=== PATIENT | female | born 1950 | race Caucasian/White ===

== ENCOUNTER → 2017-06-17 | Outpatient (CLI) | payer MEDICARE ==
[~2017-06-17] MED LIST: CYMBALTA30 MG PO; GABAPENTIN PO; KEFLEX500 MG PO; NEXIUM40 MG PO; NORCO 5-325 TA1 EACH PO; SIMVASTATIN PO; SIMVASTATIN80 MG PO; TRAZODONE HCL50 MG PO; URELLE TABLET1 EACH PO
--- NOTE | 2017-06-17 15:51 | Diagnostic Imaging Report ---
Exam: Right footCT without contrast. History: Foot pain. Mid tarsal fracture. Pain in the foot. Pain not responding to conservative management. Pain worse with walking. Comparison:None Technique: Utilizing a 64-slice multidetector CT, axial imaging was performed through the right foot without IV contrast. Multiplanar reformation was performed. Findings: There is no acute fracture or dislocation. Moderately advanced degenerative changes are seen predominantly in the mid foot involving the cuboid articulation with the adjacent metatarsals and the cuneiform/first through third proximal metatarsal articulations. There is associated joint space loss, subchondral sclerosis, subchondral cystic change and peripheral osteophytosis. Mild vacuum phenomenon is seen at the proximal first metatarsal/cuneiform articulation. No abnormal fluid collections are seen. No radiopaque foreign body is seen. The visualized muscles are normal in size and morphology. No talar dome osteochondral lesion is seen. The subtalar joints are intact. 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 No acute fracture or dislocation. Signed by: Dr. Thomas Christiansen M.D. on 06/17/2017 3:48 PM
== END ==
LOC: CT 14:07
PROVIDERS: ATTEND Podiatrist Foot & Ankle Surgery
DX: S92.241A Displaced fracture of medial cuneiform of right foot, initial encounter for closed fracture (principal)

== ENCOUNTER → 2017-08-11 | Day surgery (SDC) | payer MEDICARE ==
[2017-08-10 10:21] LABS: BASOPHILS # (AUTO) 0.1 (0.0-0.1); BASOPHILS % 0.6 % (0.0-1.0); EOSINOPHILS # (AUTO) 0.1 (0.0-0.4); EOSINOPHILS % 1.1 % (0.0-6.0); HEMATOCRIT 36.3 % (34.2-44.1); HEMOGLOBIN 11.9 g/dL (12.0-16.0); LYMPHOCYTES # (AUTO) 2.2 (1.0-3.2); LYMPHOCYTES % 19.8 % (18.0-39.1); MEAN CORPUSCULAR HEMOGLOBIN 28.3 pg (28-32); MEAN CORPUSCULAR HGB CONC 32.8 g/dL (31-35); MEAN CORPUSCULAR VOLUME 86.2 fL (81-99); MONOCYTES # (AUTO) 0.9 (0.2-0.8); MONOCYTES % 7.9 % (4.4-11.3); NEUTROPHILS # (AUTO) 7.6 (2.1-6.9); NEUTROPHILS % 69.9 % (38.7-80.0); PLATELET COUNT 132 x10e3/uL (140-360); RED BLOOD COUNT 4.21 x10e6/uL (3.6-5.1)
--- NOTE | 2017-08-10 12:39 | Diagnostic Imaging Report ---
PROCEDURE: X-RAY CHEST, TWO VIEWS COMPARISON: None. INDICATIONS: FOOT SURGERY FINDINGS: LUNGS: No consolidations or edema. Biapical pleural thickening. PLEURA: No effusions or pneumothorax. HEART \T\ MEDIASTINUM: The heart is within normal size-limits. BONES \T\ SOFT TISSUES: No acute findings. CONCLUSION: No acute thoracic abnormality. Donta Najera D.O. Dictated by: Donta Najera D.O. on 08/10/2017 at 12:40 Electronically approved by: Donta Najera D.O. on 08/10/2017 at 12:40
[~2017-08-11] MED LIST changes: +BUPIVACAINE HCL 0.5% INJ 30 ML VIAL INJ ONE; +CEFAZOLIN SOD 1 GM VIAL ONE; +DEXAMETHASONE SOD PHOS INJ 4 MG/ML VIAL ONE; +FENTANYL CITRATE/PF 100MCG/2 ML INJ ONE; +LIDOCAINE HCL 2% LOCAL INJ 5 ML SDV VIAL INJ ONE; +MIDAZOLAM HCL 2 MG/2 ML VIAL ONE; +ONDANSETRON HCL INJ 2 MG/ML VIAL ONE; +PROPOFOL IV EMULSION 10 MG/ML 20 ML VIAL ONE; +SEVOFLURANE INHAL SOLN 250 ML PEN BTL ONE; +THROMBIN FOR SOLN 5,000 UNIT VIAL ONE; +[UNRECOGNIZED DRUG - CODE] PO
--- OUTSIDE RECORDS SUMMARY | 2017-08-11 05:47 | XMS REPORT ---
Author Author [facility] Address Unknown Phone Unavailable Care Team Providers Care Counselor/Art Therapist Name Role Phone Janice SAMUELS Unavailable Unavailable Problems This patient has no known problems. Allergies, Adverse Reactions, Alerts This patient has no known allergies or adverse reactions. Medications This patient has no known medications. Results Test Description Test Time Test Comments Text Results Atomic Results Result Comments CHEST 2 VIEWS [place] [address] Patient Name: LIZETTE CHARLES MR #: [id number] : 1950 Age/Sex: 67/F Req # : [id number] Adm Physician: Ordered by: HOLLY BERGMAN MD Report #: [id number] Location: OR Room/Bed: Procedure: [id number] DX/CHEST 2 VIEWS Exam Date: 08/10/17 Exam Time: 1015 REPORT STATUS: Signed PROCEDURE: X-RAY CHEST, TWO VIEWS COMPARISON: None. INDICATIONS: FOOT SURGERY FINDINGS: LUNGS: No consolidations or edema. Biapical pleural thickening. PLEURA: No effusions or pneumothorax. HEART T MEDIASTINUM: The heart is within normal size-limits. BONES T SOFT TISSUES: No acute findings. CONCLUSION: No acute thoracic abnormality. Marce Najera D.O. Dictated by: Marce Najera D.O. on 08/10/2017 at 12:40 Electronically approved by: Marce Najera D.O. on 08/10/2017 at 12:40 Dictated By: MARCE NAJERA DO 1241 Transcribed By: JOHN on 08/10/17 1241 COPY TO: HOLLY BERGMAN MD CT FOOT RIGHT WO [place] [address] Patient Name: LIZETTE CHARLES MR #: [id number] : 1950 Age/Sex: 67/F Req # : [id number] Adm Physician: Ordered by: Janice SAMUELS DPM Report #: [id number] Location: CT Room/Bed: Procedure: [id number] CT/CT FOOT RIGHT WO Exam Date: 06/17/17 Exam Time: 1429 REPORT STATUS: Signed Exam: Right footCT without contrast. History: Foot pain. Mid tarsal fracture. Pain in the foot. Pain not responding to conservative management. Pain worse with walking. Comparison:None Technique: Utilizing a 64-slice multidetector CT, axial imaging was performed through the right foot without IV contrast. Multiplanar reformation was performed. Findings: There is no acute fracture or dislocation. Moderately advanced degenerative changes are seen predominantly in the mid foot involving the cuboid articulation with the adjacent metatarsals and the cuneiform/first through third proximal metatarsal articulations. There is associated joint space loss, subchondral sclerosis, subchondral cystic change and peripheral osteophytosis. Mild vacuum phenomenon is seen at the proximal first metatarsal/cuneiform articulation. No abnormal fluid collections are seen. No radiopaque foreign body is seen. The visualized muscles are normal in size and morphology. No talar dome osteochondral lesion is seen. The subtalar joints are intact. 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 No acute fracture or dislocation. Signed by: Dr. Thomas Christiansen M.D. on 06/17/2017 3:48 PM Dictated By: THOMAS CHRISTIANSEN MD, MD 1548 Transcribed By: ARNOLD on 06/17/17 1548 COPY TO: Janice SAMUELS DPM
--- NOTE | 2017-08-11 09:11 | Operative Report ---
DATE OF PROCEDURE: August 11, 2017 PREOPERATIVE DIAGNOSES 1. 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 2. Right medial dorsal cutaneous nerve impingement. POSTOPERATIVE DIAGNOSES 1. 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 2. Right medial dorsal cutaneous nerve impingement. PLANNED PROCEDURES 1. Right metatarsal cuneiform exostectomy. 2. Right medial dorsal cutaneous nerve neurolysis. SURGEON: See SAMUELS DPM SERVICE ATTENDANT: Johny Laura DPM. ANESTHESIA: General with a postoperative block consisting of 10 mL of 0.5% Marcaine plain mixed with 1 mL of dexamethasone phosphate. HEMOSTASIS: Pneumatic thigh tourniquet set at 350 mmHg for a total time of approximately 25 minutes. MATERIALS: 3-0 Vicryl, 4-0 Prolene. PATHOLOGY: None. ESTIMATED BLOOD LOSS: Less than 10 mL. DETAILS OF PROCEDURE: Patient was seen in the preoperative waiting room where the correct procedure and site were identified. The patient was brought to the operating room and placed on the operating table in the supine position. General anesthesia was initiated at this time. A well-padded pneumatic tourniquet was placed about the patient's right thigh. The right foot, ankle and leg were then scrubbed, prepped and draped in the usual aseptic manner. The right foot, ankle and leg were then exsanguinated with an Esmarch bandage, and the pneumatic thigh tourniquet was inflated to 350 mmHg for a total time of approximately 20 to 25 minutes. Attention was directed the dorsomedial aspect of the patient's right foot where a large bony exostosis was noted along the 1st metatarsal cuneiform joint. Utilizing a #15 blade, a 5-cm curvilinear incision was made. Incision was carried through subcutaneous tissues, them from deeper underlying structures. All vital neurovascular structures were identified and retracted medially and laterally, and all bleeders were cauterized or ligated as deemed necessary. It should be noted that upon incision the proper digital branch of the medial dorsal cutaneous nerve was noted within the incision site. It was noted to be inflamed and entrapped within the fascia. This was freed utilizing a mosquito hemostat. Next, this was retracted laterally. Incision was made through the metatarsal cuneiform joint capsule to spare the extensor hallucis longus tendon. The tissues were reflected medially and laterally to allow for good visualization of the exostosis. Utilizing an osteotome and mallet, the exostectomy was performed, and all bone edges were smoothed utilizing an egg bur and a bone rasp. The wound was then flushed with copious amounts of sterile saline. Utilizing 1 mL of dexamethasone phosphate, the nerve was bathed in it. Next, the deep tissue was reapproximated with 3-0 Vicryl, and the skin was closed using running interlocking sutures of 4-0 Prolene. The incision site was dressed with Adaptic, 4 x 4's, Kerlix, Thomas wrap and a postop shoe. Patient tolerated the procedure and anesthesia well. Patient was transferred to postoperative recovery room with vital signs stable and vascular status intact. The patient was monitored there for a short period of time before being sent home with the following written and oral instructions: 1. Keep the dressing clean, dry and intact. 2. The patient is to remain partial weightbearing in a postop shoe and to avoid excessive ambulation until being seen in the office. 3. The patient was given the office number and instructed to contact us if any problems should arise. Dictated by Johny Laura DPM. Job#: [id number] WALTER JAMESON
== END | disposition home or self-care (01) ==
LOC: OR 05:45
PROVIDERS: ATTEND Podiatrist Foot & Ankle Surgery
PROC: 0QBN0ZZ Excision of Right Metatarsal, Open Approach (ICD-10-PCS; 2017-08-11)
PROC: 01NH0ZZ Release Peroneal Nerve, Open Approach (ICD-10-PCS; principal; 2017-08-11 06:30)
DX: M77.51 Other enthesopathy of right foot and ankle (principal); G57.81 Other specified mononeuropathies of right lower limb; F17.210 Nicotine dependence, cigarettes, uncomplicated; E78.5 Hyperlipidemia, unspecified; Z01.810 Encounter for preprocedural cardiovascular examination; Z01.812 Encounter for preprocedural laboratory examination; Z01.818 Encounter for other preprocedural examination
CPT/HCPCS: 28104; 36415; 64704; 71046; 85025; 93005; J0690; J1100; J2001; J2250; J2405

== ENCOUNTER → 2018-09-22 | Day surgery (SDC) | payer MEDICARE ==
[2018-09-15 10:51] LABS: BASOPHILS # (AUTO) 0.1 (0.0-0.1); BASOPHILS % 0.9 % (0.0-1.0); EOSINOPHILS # (AUTO) 0.1 (0.0-0.4); EOSINOPHILS % 0.8 % (0.0-6.0); HEMATOCRIT 39.3 % (34.2-44.1); HEMOGLOBIN 13.2 g/dL (12.0-16.0); LYMPHOCYTES # (AUTO) 1.8 (1.0-3.2); LYMPHOCYTES % 23.9 % (18.0-39.1); MEAN CORPUSCULAR HEMOGLOBIN 28.3 pg (28-32); MEAN CORPUSCULAR HGB CONC 33.6 g/dL (31-35); MEAN CORPUSCULAR VOLUME 84.2 fL (81-99); MONOCYTES # (AUTO) 0.7 (0.2-0.8); MONOCYTES % 9.5 % (4.4-11.3); NEUTROPHILS # (AUTO) 4.9 (2.1-6.9); NEUTROPHILS % 64.4 % (38.7-80.0); PLATELET COUNT 141 x10e3/uL (140-360); RED BLOOD COUNT 4.67 x10e6/uL (3.6-5.1); RED CELL DISTRIBUTION WIDTH 19.6 % (11.7-14.4)
[~2018-09-22] MED LIST changes: -BUPIVACAINE HCL 0.5% INJ 30 ML VIAL INJ ONE; -CEFAZOLIN SOD 1 GM VIAL ONE; +CYMBALTA30 MG; -DEXAMETHASONE SOD PHOS INJ 4 MG/ML VIAL ONE; +GABAPENTIN100 MG; +GLUCAGON FOR INJ 1 MG VIAL ONE; +HYOSCYAMINE SULFATE 0.5 MG/ML INJ ONE; -ONDANSETRON HCL INJ 2 MG/ML VIAL ONE; +OS-CAL 500+D T1 EACH; -PROPOFOL IV EMULSION 10 MG/ML 20 ML VIAL ONE; +PROPOFOL IV EMULSION 10 MG/ML 50 ML VIAL ONE; -SEVOFLURANE INHAL SOLN 250 ML PEN BTL ONE; -THROMBIN FOR SOLN 5,000 UNIT VIAL ONE
[2018-09-22 12:10] VITALS: BP 108/85
[2018-09-22 15:35] LABS: WBC,FECAL (FECAL LACTOFERRIN) POSITIVE (NEGATIVE)
--- NOTE | 2018-09-22 18:23 | Operative Report ---
DATE OF PROCEDURE: 09/22/2018 SURGEON: Kristofer Urena MD PROCEDURES: Esophagogastroduodenoscopy with esophageal dilatation and biopsies and colonoscopy with polypectomy and biopsies. INDICATIONS FOR EGD: Dysphagia, bloating. INDICATIONS FOR COLONOSCOPY: Diarrhea, chronic; fecal incontinence. MEDICATION: The patient was done under MAC, please see anesthesiologist's note. PROCEDURE IN DETAIL: With the patient in left lateral decubitus position, flexible fiberoptic Olympus gastroscope was introduced into the esophagus under direct visualization without any difficulty. There was some patchy erythema noted in distal esophagus. A mild stricture was noted at the GE junction that was dilated to size 52-[place]. The scope was then advanced with ease into the stomach and mucosa overlying the antrum revealed some diffuse erythema and mild to moderate edema and biopsies were obtained and sent to stain for H pylori. Mucosa overlying the body had patchy but prominent nodularity and biopsies were obtained. A minute nodule was noted in the cardia that was biopsied. The pylorus was intubated with ease and the scope was advanced all the way to the second portion of the duodenum. Biopsies were obtained from the proximal second portion and the duodenal bulb to rule out sprue. The scope was then withdrawn back into the stomach and retroflexed and mucosa overlying the fundus and the cardia appeared to be within normal limits. The scope was then straightened out, it was subsequently withdrawn. The patient tolerated procedure well. IMPRESSION: 1. Distal esophagitis, mild. 2. Esophageal stricture at GE junction dilated to size 52-[place] Hackett. 3. Small sliding hiatal hernia. 4. Nodule in cardia, biopsied. 5. Gastritis, biopsied, biopsies sent to stain for H pylori. 6. Rule out sprue. PLAN: Follow up histology. Initiate Protonix 40 mg one p.o. q.a.m. a.c. PROCEDURE IN DETAIL: The patient was then turned around. After adequate lubrication of the anal canal, a flexible fiberoptic Olympus colonoscope was inserted into the rectum with ease and advanced all the way to the cecum. Mucosa overlying the cecum appeared to be within normal limits. The ileocecal valve was intubated and the scope was advanced into the terminal ileum. Biopsies were obtained. The scope was then withdrawn back into the colon. It was then withdrawn slowly and mucosa overlying the ascending appeared to be within normal limits. Two polyps were snared from the distal transverse colon and one polypectomy site was tattooed. One polyp was hot biopsied from the descending colon. The left colon revealed some diffuse erythema, low-grade to moderate edema and biopsies were obtained. Rectal polyps x6, 2 were snared and 4 were hot biopsied from the rectum. The scope was then retroflexed into the distal rectum and the area around the dentate line appeared to be within normal limits. The scope was then straightened out, it was subsequently withdrawn after securing an adequate stool specimen that was sent for the appropriate stool studies. The patient tolerated procedure well. IMPRESSION: 1. Transverse colon polyps x2, snared, 1 polypectomy site tattooed. 2. Descending colon polyp, hot biopsied. 3. Mild patchy left-sided colitis. 4. Rectal polyps x6, 2 snared and 4 hot biopsied. PLAN: Follow up histology. Follow up stool studies. Initiate Bentyl 10 mg one p.o. t.i.d. VSL#3 one p.o. daily. The patient might benefit from a followup colonoscopy in 3 to 5 years. Kristofer Urena MD [facility] [place]/MODL /[id number] cc: Angus Adamson MD
[2018-09-23 12:52] LABS: C DIFFICILE TOXIN A&B AMP PROB NEGATIVE (NEGATIVE)
== END | disposition home or self-care (01) ==
LOC: OR 07:00
PROVIDERS: ATTEND Internal Medicine Gastroenterology
DX: D12.3 Benign neoplasm of transverse colon (principal); D12.4 Benign neoplasm of descending colon; K20.9 Esophagitis, unspecified; K22.2 Esophageal obstruction; K44.9 Diaphragmatic hernia without obstruction or gangrene; K29.70 Gastritis, unspecified, without bleeding; K62.1 Rectal polyp; K51.50 Left sided colitis without complications; K31.7 Polyp of stomach and duodenum; R14.0 Abdominal distension (gaseous); K92.1 Melena; R12 Heartburn; R19.7 Diarrhea, unspecified; K59.00 Constipation, unspecified; R13.10 Dysphagia, unspecified; Z01.810 Encounter for preprocedural cardiovascular examination; Z01.812 Encounter for preprocedural laboratory examination
CPT/HCPCS: 36415; 43239; 43450; 45378; 45380; 45381; 45384; 45385; 83630; 83993; 85025; 87045; 87177; 87328; 87493; 93005; J1610; J1980; J2001; J2250

== ENCOUNTER 2019-08-08 21:21 | Emergency (ER) | payer MEDICARE ==
[~2019-08-08 21:21] MED LIST changes: -FENTANYL CITRATE/PF 100MCG/2 ML INJ ONE; -GLUCAGON FOR INJ 1 MG VIAL ONE; -HYOSCYAMINE SULFATE 0.5 MG/ML INJ ONE; -LIDOCAINE HCL 2% LOCAL INJ 5 ML SDV VIAL INJ ONE; -MIDAZOLAM HCL 2 MG/2 ML VIAL ONE; -PROPOFOL IV EMULSION 10 MG/ML 50 ML VIAL ONE
[2019-08-08] MEDS ORDERED: SODIUM CHLORIDE 0.9% 1000ML 1,000 ML IV STA (21:31)
[2019-08-08] MEDS ORDERED: KETOROLAC TROMETHAMINE 30 MG/ML VIAL IV STA (21:31)
[2019-08-08 21:52] LABS: BASOPHILS # (AUTO) 0.1 (0.0-0.1); BASOPHILS % 0.9 % (0.0-1.0); EOSINOPHILS # (AUTO) 0.1 (0.0-0.4); EOSINOPHILS % 0.7 % (0.0-6.0); HEMATOCRIT 33.9 % (34.2-44.1); HEMOGLOBIN 11.2 g/dL (12.0-16.0); LYMPHOCYTES # (AUTO) 2.6 (1.0-3.2); MEAN CORPUSCULAR HEMOGLOBIN 28.3 pg (28-32); MEAN CORPUSCULAR VOLUME 85.6 fL (81-99); MONOCYTES # (AUTO) 0.9 (0.2-0.8); MONOCYTES % 8.7 % (4.4-11.3); NEUTROPHILS # (AUTO) 6.7 (2.1-6.9); NEUTROPHILS % 63.8 % (38.7-80.0); PLATELET COUNT 130 x10e3/uL (140-360); RED BLOOD COUNT 3.96 x10e6/uL (3.6-5.1); RED CELL DISTRIBUTION WIDTH 18.9 % (11.7-14.4)
[2019-08-08 22:24] LABS: ALANINE AMINOTRANSFERASE 15 IU/L (0-55); ALBUMIN 3.6 g/dL (3.5-5.0); ALBUMIN/GLOBULIN RATIO 1.4 (0.8-2.0); ALKALINE PHOSPHATASE 82 IU/L (40-150); ANION GAP 9.8 mmol/L (8-16); BLOOD UREA NITROGEN 13 mg/dL (7-26); BUN/CREATININE RATIO 15 (6-25); CALCIUM 9.1 mg/dL (8.4-10.2); CARBON DIOXIDE 26 mmol/L (22-29); CHLORIDE 102 mmol/L (98-107); CREATININE, SERUM 0.85 mg/dL (0.57-1.11); EST GLOMERULAR FILTRATION RATE > 60 ML/MIN (60-); GLUCOSE 99 mg/dL (74-118); POTASSIUM 3.8 mmol/L (3.5-5.1); SODIUM 134 mmol/L (136-145)
[2019-08-08] MEDS ORDERED: ONDANSETRON HCL INJ 2MG/ML 2ML 2 MG/ML VIAL IV STA (22:46)
[2019-08-08] MEDS ORDERED: MORPHINE SULFATE INJ 4 MG/ML INJ 1ML IV STA (22:46)
[2019-08-08 23:21] LABS: KETONES,URINE NEGATIVE (NEGATIVE); LEUKOCYTE ESTERASE ,URINE 1+ (NEGATIVE); NITRITE,URINE NEGATIVE (NEGATIVE); PROTEIN,URINE DIPSTICK NEGATIVE (NEGATIVE); URINE UROBILINOGEN 0.2 mg/dL (0.2 - 1)
[2019-08-08 23:22] LABS: BILIRUBIN,URINE NEGATIVE (NEGATIVE)
[2019-08-08 23:34] LABS: WBC,URINE (MAN) >50 /HPF (0-5)
[2019-08-08 23:35] LABS: BACTERIA,URINE FEW /HPF; CLARITY,URINE CLOUDY (CLEAR); COLOR,URINE GREEN (YELLOW); EPITHELIAL CELLS,URINE FEW /LPF; RENAL EPITHELIAL CELLS,URINE FEW; TRANSITIONAL EPI CELLS,URINE FEW
--- NOTE | 2019-08-08 23:35 | Diagnostic Imaging Report ---
EXAM: CT Abdomen and Pelvis WITHOUT contrast INDICATION: Right-sided back pain. COMPARISON: None. TECHNIQUE: Abdomen and pelvis were scanned utilizing a multidetector helical scanner from the lung base to the pubic symphysis without administration of IV contrast. Absence of intravenous contrast decreases sensitivity for detection of focal lesions and vascular pathology. Coronal and sagittal reformations were obtained. Stone protocol is performed. IV CONTRAST: None. ORAL CONTRAST: None. RADIATION DOSE: Total DLP: 261.9 mGy*cm Estimated effective dose: (DLP x 0.015 x size factor) mSv COMPLICATIONS: None FINDINGS: Partially limited evaluation secondary to streak artifact from lumbar spine hardware. LINES and TUBES: None. LOWER THORAX: Bilateral calcified granulomas. HEPATOBILIARY: Calcified right hepatic lobe granuloma. There is a incompletely evaluated 1.9 cm hypodense lesion at the right hepatic dome which contains coarse calcifications. No biliary ductal dilatation. GALLBLADDER: No radio-opaque stones or sludge. No wall thickening. SPLEEN: No splenomegaly. Calcified splenic granulomas. PANCREAS: No focal masses or ductal dilatation. Fatty atrophy. ADRENALS: No adrenal nodules KIDNEYS/URETERS: No hydronephrosis. No cystic or solid mass lesions. No right-sided renal stone. Nonobstructing 3 mm left upper pole renal stone. GI TRACT: No abnormal distention, wall thickening, or evidence of bowel obstruction. Appendix is normal. Moderate amount of stool in the colon. PELVIC ORGANS/BLADDER: Status post hysterectomy. LYMPH NODES: No lymphadenopathy. VESSELS: There is moderate atherosclerotic disease in the aorta and major arterial branches. Circumaortic left renal vein. PERITONEUM / RETROPERITONEUM: No free air or fluid. BONES: No acute osseous abnormality. Status post posterior decompression from L3 through L5 with spinal fusion of L3-L4. Intervertebral spacers at L3-L4 and L4-L5. Mild retrolisthesis of L2 on L3. Diffuse osteopenia. SOFT TISSUES: Partially seen bilateral breast implants. IMPRESSION: No right-sided nephrolithiasis. Nonobstructing 3 mm left upper pole renal stone. Moderate amount of stool in the colon. Incompletely evaluated 1.9 cm hypodense lesion in the right hepatic dome with coarse calcifications may represent a complex cyst or sequela of prior infection. Suggest follow-up nonemergent abdominal ultrasound for further evaluation. Sequela of remote granulomatous disease. Signed by: Dr. Robin Cassidy MD on 08/08/2019 11:31 PM
[2019-08-08 23:45] VITALS: BP 133/64
== END 2019-08-08 23:55 | disposition home or self-care (01) ==
LOC: ER 21:21
DX: M54.41 Lumbago with sciatica, right side (principal); N30.90 Cystitis, unspecified without hematuria; N20.0 Calculus of kidney
CPT/HCPCS: 36415; 74176; 80053; 81001; 85025; 99284; J1885; J2270; J2405; J7030

== ENCOUNTER 2019-09-12 10:33 | Outpatient (RCR) | payer MEDICARE | END 2019-09-17 | LOC: PT 10:33 | PROVIDERS: ATTEND Neurological Surgery | DX: M62.81 Muscle weakness (generalized) (principal); M54.16 Radiculopathy, lumbar region; M53.86 Other specified dorsopathies, lumbar region ==

== ENCOUNTER → 2019-10-17 | Outpatient (RCR) | payer MEDICARE | LOC: PT 09-18 09:49 | PROVIDERS: ATTEND Neurological Surgery | DX: M51.16 Intervertebral disc disorders with radiculopathy, lumbar region (principal); M62.81 Muscle weakness (generalized); M53.86 Other specified dorsopathies, lumbar region | CPT/HCPCS: 97139 ==

== ENCOUNTER 2019-11-06 10:00 | Outpatient (RCR) | payer MEDICARE | END 2019-11-17 | LOC: PT 10:00 | PROVIDERS: ATTEND Neurological Surgery | DX: M54.16 Radiculopathy, lumbar region (principal); M62.81 Muscle weakness (generalized); M53.86 Other specified dorsopathies, lumbar region ==

== ENCOUNTER → 2019-11-06 | Outpatient (CLI) | payer MEDICARE | LOC: RAD 13:41 | PROVIDERS: ATTEND Internal Medicine | DX: R60.9 Edema, unspecified (principal) | CPT/HCPCS: 93971 ==

== ENCOUNTER → 2019-12-07 | Outpatient (CLI) | payer MEDICARE ==
--- NOTE | 2019-12-07 12:51 | Diagnostic Imaging Report ---
EXAMINATION: MRI of the lumbar spine without contrast HISTORY: 69-year-old female with chronic low back pain radiating to the right lower extremity, prior L3-L4 and L4-L5 spinal surgery/fusion. COMPARISON: Abdomen CT 08/08/2019 TECHNIQUE: Sagittal T1, T2, STIR; axial T2 and proton density. FINDINGS: It is assumed that there are 5 lumbar vertebrae. Postoperative changes: Decompressive laminectomy at L3 on L4. Posterior fusion with bilateral transpedicular screws at L3 and L4. Solid interbody fusion with interbody cages at L3-L4 and L4-L5. Foraminotomy on the left L3-L4 and on the right at L4-L5. Solid posterior bone bridging/fusion from L4 to S1. Curvature/Alignment: Mild lumbar levoscoliosis centered at L3-L4. Mild straightening of the lumbar lordosis. Minimal retrolisthesis at L2-L3. Vertebrae: No evidence of recent fracture, infection, or neoplasm. Conus: Normal, terminating at inferior endplate of L1. Cauda equina: Unremarkable. Lower thoracic: Unremarkable. Paraspinal soft tissues: Atrophy of the paraspinal muscles from L3 to the sacrum and expected postoperative changes Degenerative changes: L1-L2: No significant degenerative changes, no spinal canal or foraminal stenoses. L2-L3: -Decreased disc height and T2 signal intensity. Prominent subchondral bone marrow edema (Modic type I endplate degenerative changes). -Asymmetric right disc or in combination with retrolisthesis, mild ligamenta flava thickening and facet arthroses results in severe right foraminal stenoses and effacement of the right lateral recess. Compression upon the exiting right L2 nerve root and traversing/descending right L3 nerve root is suspected. L3-L4 to L5-S1: Surgical levels without significant canal or foraminal stenoses. IMPRESSION: 1. 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 2. Postoperative changes from L3 to L5, solidly fusion. No spinal canal or foraminal stenoses at these levels. 3. Modic type I endplate degenerative changes at L2-L3 with subchondral bone marrow edema. Signed by: Dr. Moni Santoyo M.D. on 12/07/2019 12:47 PM
== END ==
LOC: MRI 08:51
PROVIDERS: ATTEND Internal Medicine
DX: M54.31 Sciatica, right side (principal)
CPT/HCPCS: 72148

== ENCOUNTER → 2020-03-27 | Outpatient (CLI) | payer MEDICARE | LOC: RAD 12:21 | PROVIDERS: ATTEND Neurological Surgery | DX: M43.16 Spondylolisthesis, lumbar region (principal); M43.26 Fusion of spine, lumbar region | CPT/HCPCS: 72110 ==

== ENCOUNTER 2020-04-16 08:58 | Outpatient (RCR) | payer MEDICARE | END 2020-04-18 | LOC: PT 08:58 | PROVIDERS: ATTEND Neurological Surgery | DX: M48.062 Spinal stenosis, lumbar region with neurogenic claudication (principal) ==

== ENCOUNTER 2020-05-09 09:00 | Outpatient (RCR) | payer MEDICARE | END 2020-05-19 | LOC: PT 09:00 | PROVIDERS: ATTEND Neurological Surgery | DX: M48.062 Spinal stenosis, lumbar region with neurogenic claudication (principal) | CPT/HCPCS: 97139 ==

== ENCOUNTER 2020-07-03 10:22 | Inpatient (IN) | payer MEDICARE ==
[~2020-07-03] VITALS: Ht 170.2 cm; Wt 73.9 kg
[~2020-07-03 10:22] MED LIST changes: +LYRICA75 MG PO; +PRELIEF PO
[2020-07-03] MEDS ORDERED: MORPHINE SULFATE INJ 2 MG/ML SYR IV STA (10:56)
[2020-07-03] MEDS ORDERED: SODIUM CHLORIDE 0.9% 1000ML 1,000 ML IV STA (10:56)
[2020-07-03] MEDS ORDERED: ONDANSETRON HCL INJ 2MG/ML 2ML 2 MG/ML VIAL IV PRN (11:15)
[2020-07-03] MEDS ORDERED: MORPHINE SULFATE INJ 2 MG/ML SYR IV PRN (11:15)
[2020-07-03 11:17] LABS: BASOPHILS # (AUTO) 0.1 (0.0-0.1); BASOPHILS % 0.6 % (0.0-1.0); EOSINOPHILS # (AUTO) 0.1 (0.0-0.4); EOSINOPHILS % 0.5 % (0.0-6.0); HEMATOCRIT 33.1 % (34.2-44.1); HEMOGLOBIN 10.6 g/dL (12.0-16.0); LYMPHOCYTES # (AUTO) 1.6 (1.0-3.2); LYMPHOCYTES % 17.1 % (18.0-39.1); MEAN CORPUSCULAR HEMOGLOBIN 26.6 pg (28-32); MEAN CORPUSCULAR VOLUME 83.2 fL (81-99); MONOCYTES # (AUTO) 1.4 (0.2-0.8); MONOCYTES % 14.5 % (4.4-11.3); NEUTROPHILS # (AUTO) 6.3 (2.1-6.9); NEUTROPHILS % 66.1 % (38.7-80.0); PLATELET COUNT 120 x10e3/uL (140-360); RED BLOOD COUNT 3.98 x10e6/uL (3.6-5.1); RED CELL DISTRIBUTION WIDTH 20.3 % (11.7-14.4)
[2020-07-03] MEDS ORDERED: MORPHINE SULFATE INJ 4 MG/ML INJ 1ML ONE (11:21)
[2020-07-03 11:30] LABS: INR 1.04; PROTHROMBIN TIME 14.2 seconds (11.9-14.5)
[2020-07-03] MEDS ORDERED: ONDANSETRON HCL INJ 2MG/ML 2ML 2 MG/ML VIAL IV ONE (11:30)
[2020-07-03 11:31] LABS: PARTIAL THROMBOPLASTIN TIME 33.2 seconds (23.8-35.5)
[2020-07-03 11:37] LABS: ALANINE AMINOTRANSFERASE 9 IU/L (0-55); ALBUMIN 3.6 g/dL (3.5-5.0); ALBUMIN/GLOBULIN RATIO 0.9 (0.8-2.0); ALKALINE PHOSPHATASE 96 IU/L (40-150); ANION GAP 12.7 mmol/L (8-16); BLOOD UREA NITROGEN 12 mg/dL (7-26); BUN/CREATININE RATIO 14 (6-25); CALCIUM 9.2 mg/dL (8.4-10.2); CARBON DIOXIDE 26 mmol/L (22-29); CHLORIDE 103 mmol/L (98-107); CREATINE KINASE 33 IU/L (29-168); CREATININE, SERUM 0.85 mg/dL (0.57-1.11); EST GLOMERULAR FILTRATION RATE > 60 ML/MIN (60-); GLUCOSE 113 mg/dL (74-118); MAGNESIUM 1.9 MG/DL (1.3-2.1); POTASSIUM 3.7 mmol/L (3.5-5.1); SODIUM 138 mmol/L (136-145)
[2020-07-03 13:00] VITALS: BP 142/63
[2020-07-03 13:11] VITALS: BP 110/61
[2020-07-03 15:18] VITALS: BP 105/41
[2020-07-03] MEDS: SODIUM CHLORIDE 0.9% 1000ML 1,000 ML IV SCH ×2 (15:23→22:11)
[2020-07-03] MEDS: MORPHINE SULFATE INJ 4 MG/ML INJ 1ML IV PRN ×2 (17:35→23:15)
[2020-07-03 19:48] LABS: CREATINE KINASE 35 IU/L (29-168)
[2020-07-03 20:53] VITALS: BP 115/52
[2020-07-03 21:00] VITALS: BP 115/52
[2020-07-04] VITALS (8 sets, daily range): BP systolic 98–161; BP diastolic 43–69
[2020-07-04] MEDS ORDERED: KETOROLAC TROMETHAMINE 30 MG/ML VIAL IV STA (04:51)
[2020-07-04 05:10] LABS: BASOPHILS # (AUTO) 0.1 (0.0-0.1); BASOPHILS % 0.8 % (0.0-1.0); EOSINOPHILS # (AUTO) 0.1 (0.0-0.4); EOSINOPHILS % 0.7 % (0.0-6.0); HEMOGLOBIN 9.7 g/dL (12.0-16.0); LYMPHOCYTES # (AUTO) 2.7 (1.0-3.2); LYMPHOCYTES % 32.2 % (18.0-39.1); MEAN CORPUSCULAR HEMOGLOBIN 26.7 pg (28-32); MEAN CORPUSCULAR HGB CONC 31.3 g/dL (31-35); MEAN CORPUSCULAR VOLUME 85.4 fL (81-99); MONOCYTES % 12.1 % (4.4-11.3); NEUTROPHILS # (AUTO) 4.4 (2.1-6.9); NEUTROPHILS % 53.1 % (38.7-80.0); PLATELET COUNT 116 x10e3/uL (140-360); RED BLOOD COUNT 3.63 x10e6/uL (3.6-5.1); RED CELL DISTRIBUTION WIDTH 20.2 % (11.7-14.4)
[2020-07-04 05:32] LABS: ALANINE AMINOTRANSFERASE 8 IU/L (0-55); ALBUMIN 3.1 g/dL (3.5-5.0); ALBUMIN/GLOBULIN RATIO 0.9 (0.8-2.0); ALKALINE PHOSPHATASE 80 IU/L (40-150); ANION GAP 12.1 mmol/L (8-16); BLOOD UREA NITROGEN 10 mg/dL (7-26); BUN/CREATININE RATIO 13 (6-25); CALCIUM 8.4 mg/dL (8.4-10.2); CARBON DIOXIDE 22 mmol/L (22-29); CHLORIDE 108 mmol/L (98-107); CREATININE, SERUM 0.77 mg/dL (0.57-1.11); EST GLOMERULAR FILTRATION RATE > 60 ML/MIN (60-); GLUCOSE 100 mg/dL (74-118); POTASSIUM 4.1 mmol/L (3.5-5.1); SODIUM 138 mmol/L (136-145)
[2020-07-04] MEDS: METHOCARBAMOL 750 MG TAB PO SCH ×3 (05:38→21:12)
[2020-07-04] MEDS: METHYLPREDNISOLONE SOD SUCC 125 MG/2ML VIAL IV SCH ×3 (05:38→21:12)
[2020-07-04 05:55] LABS: CREATINE KINASE MB 0.5 ng/mL (0-5.0)
[2020-07-04] MEDS: PREGABALIN 75 MG CAP PO SCH ×2 (08:17→16:51)
[2020-07-04] MEDS: PANTOPRAZOLE SOD 40 MG TABEC PO SCH ×2 (08:17→16:51)
[2020-07-04] MEDS: MORPHINE SULFATE INJ 4 MG/ML INJ 1ML IV PRN (08:35)
[2020-07-04] MEDS: SODIUM CHLORIDE 0.9% 1000ML 1,000 ML IV SCH ×2 (09:07→21:11)
[2020-07-04] MEDS: TRAZODONE HCL 50 MG TAB PO SCH (21:11)
[2020-07-04] MEDS: SIMVASTATIN 80 MG TAB PO SCH (21:11)
[2020-07-05] VITALS (11 sets, daily range): BP systolic 122–147; BP diastolic 48–71
[2020-07-05] MEDS ORDERED: SODIUM CHLORIDE FLUSH 10 ML SYR INJ PRN (05:00)
[2020-07-05] MEDS: METHYLPREDNISOLONE SOD SUCC 125 MG/2ML VIAL IV SCH ×3 (06:04→21:16)
[2020-07-05] MEDS: SODIUM CHLORIDE 0.9% 1000ML 1,000 ML IV SCH ×3 (06:04→23:15)
[2020-07-05] MEDS: METHOCARBAMOL 750 MG TAB PO SCH ×3 (06:04→21:16)
[2020-07-05] MEDS: PANTOPRAZOLE SOD 40 MG TABEC PO SCH ×2 (10:01→17:12)
[2020-07-05] MEDS: PREGABALIN 75 MG CAP PO SCH ×2 (10:01→17:11)
[2020-07-05] MEDS: TRAZODONE HCL 50 MG TAB PO SCH (21:15)
[2020-07-05] MEDS: SIMVASTATIN 80 MG TAB PO SCH (21:16)
[2020-07-06 04:00] VITALS: BP 131/59
[2020-07-06] MEDS: METHOCARBAMOL 750 MG TAB PO SCH (05:09)
[2020-07-06] MEDS: METHYLPREDNISOLONE SOD SUCC 125 MG/2ML VIAL IV SCH (05:09)
[2020-07-06] MEDS: PREGABALIN 75 MG CAP PO SCH (08:16)
[2020-07-06] MEDS: PANTOPRAZOLE SOD 40 MG TABEC PO SCH (08:16)
[2020-07-08] MEDS ORDERED: ROPIVACAINE 246.25 MG, EPINEPHRINE HCL 1:1000 1ML 0.5 MG, CLONIDINE HCL 0.08 MG, KETORO... INJ PRN ×5 (08:45)
== END 2020-07-06 08:24 | disposition home or self-care (01) | DRG 74 ==
LOC: ER 11:00 → ERHOLD 11:02 → MED/SURG2 12:37
PROVIDERS: ADMIT Internal Medicine; ATTEND Internal Medicine
DX: G62.9 Polyneuropathy, unspecified (principal); D69.6 Thrombocytopenia, unspecified; D64.9 Anemia, unspecified; K21.9 Gastro-esophageal reflux disease without esophagitis; M79.671 Pain in right foot; M79.672 Pain in left foot; Z82.49 Family history of ischemic heart disease and other diseases of the circulatory system; E78.5 Hyperlipidemia, unspecified; M17.12 Unilateral primary osteoarthritis, left knee; F17.210 Nicotine dependence, cigarettes, uncomplicated; Z20.822 Contact with and (suspected) exposure to COVID-19
CPT/HCPCS: 36415; 71045; 72148; 80053; 82550; 82553; 83735; 84484; 84550; 85025; 85610; 85730; 87040; 96361; 99251; 99284; J0171; J1885; J2270; J2405; J2795; J2930; J7030; U0002

== ENCOUNTER 2020-07-08 07:35 | Observation (INO) | payer MEDICARE ==
[~2020-07-08] VITALS: Ht 170.2 cm; Wt 65.8 kg
[2020-07-08] MEDS ORDERED: CELECOXIB 200 MG CAP ONE (08:31)
[2020-07-08] MEDS ORDERED: DEXAMETHASONE SOD PHOS 10 MG/1 ML VIAL ONE (08:32)
[2020-07-08] MEDS ORDERED: CEFAZOLIN SOD 1 GM/NS 50ML 100 ML IV ONE (08:32)
[2020-07-08] MEDS ORDERED: GABAPENTIN 300 MG CAP ONE (08:32)
[2020-07-08] MEDS ORDERED: TRANEXAMIC ACID 1,000 MG/10 ML ML ONE (08:35)
[2020-07-08] MEDS ORDERED: SODIUM CHLORIDE 0.9% 500ML 500 ML ONE (08:35)
[2020-07-08] MEDS ORDERED: VANCOMYCIN HCL 1,000 MG ONE (08:35)
[2020-07-08] MEDS ORDERED: ACETAMINOPHEN 1000 MG/100 ML 100 ML IV ONE (09:54)
[2020-07-08] MEDS ORDERED: DIPHENHYDRAMINE HCL INJ 50 MG/ML VIAL IV PRN (10:30)
[2020-07-08] MEDS ORDERED: ACETAMINOPHEN 650 MG SUPP PR PRN (10:30)
[2020-07-08] MEDS ORDERED: ONDANSETRON HCL INJ 2MG/ML 2ML 2 MG/ML VIAL IV PRN (10:30)
[2020-07-08] MEDS ORDERED: DOCUSATE SODIUM 100 MG CAP PO PRN (10:30)
[2020-07-08] MEDS: SODIUM CHLORIDE 0.9% 1000ML 1,000 ML IV SCH ×2 (10:30→16:52)
[2020-07-08] MEDS ORDERED: KETOROLAC TROMETHAMINE 30 MG/ML VIAL IV PRN (10:30)
[2020-07-08] MEDS ORDERED: HYDROMORPHONE 1MG/1ML INJ ONE (11:08)
[2020-07-08 11:45] VITALS: BP 144/79
[2020-07-08] MEDS ORDERED: ACETAMINOPHEN 1000 MG/100 ML IV PRN (12:00)
[2020-07-08] MEDS ORDERED: ROPIVACAINE 0.5% 5 MG/ML 30 ML SDV ONE (12:16)
[2020-07-08 12:28] VITALS: BP 144/79
[2020-07-08 12:35] VITALS: BP 144/79
[2020-07-08] MEDS ORDERED: DEXAMETHASONE SOD PHOS INJ 4 MG/ML VIAL ONE (13:35)
[2020-07-08] MEDS ORDERED: SEVOFLURANE INHAL SOLN 250 ML PEN BTL ONE (13:35)
[2020-07-08] MEDS ORDERED: PROPOFOL IV EMULSION 10 MG/ML 20 ML VIAL ONE (13:35)
[2020-07-08] MEDS ORDERED: LIDOCAINE HCL 2% JELLY 5 ML TUBE ONE (13:35)
[2020-07-08] MEDS ORDERED: ONDANSETRON HCL INJ 2MG/ML 2ML 2 MG/ML VIAL ONE (13:35)
[2020-07-08] MEDS ORDERED: MIDAZOLAM HCL 2 MG/2 ML VIAL ONE (14:01)
[2020-07-08] MEDS ORDERED: FENTANYL CITRATE/PF 100MCG/2 ML INJ ONE (14:01)
[2020-07-08 15:39] VITALS: BP 116/53
[2020-07-08] MEDS: HYDROCODONE/APAP 7.5MG-325MG 1 EA TAB PO PRN ×2 (15:52→20:19)
[2020-07-08] MEDS: ASPIRIN 325 MG TAB PO SCH (16:51)
[2020-07-08] MEDS: CELECOXIB 100 MG CAP PO SCH (16:52)
[2020-07-08] MEDS: CEFAZOLIN SOD 1 GM/NS 50ML 50 ML IV SCH (17:02)
[2020-07-08 20:00] VITALS: BP 123/51
[2020-07-08] MEDS ORDERED: ZOLPIDEM TARTRATE 5 MG TAB PO PRN (21:00)
[2020-07-08 21:57] VITALS: BP 123/51
[2020-07-09] MEDS: CEFAZOLIN SOD 1 GM/NS 50ML 50 ML IV SCH ×2 (00:13→08:59)
[2020-07-09] MEDS: HYDROCODONE/APAP 7.5MG-325MG 1 EA TAB PO PRN ×2 (00:19→04:45)
[2020-07-09 01:59] VITALS: BP 128/56
[2020-07-09 04:59] VITALS: BP 127/105
[2020-07-09 06:40] LABS: HEMATOCRIT 27.5 % (34.2-44.1); HEMOGLOBIN 9.1 g/dL (12.0-16.0)
[2020-07-09 07:16] VITALS: BP 122/59
[2020-07-09 07:24] VITALS: BP 122/59
[2020-07-09] MEDS: HYDROCODONE/APAP 5MG-325MG TAB PO PRN ×2 (08:54→12:45)
[2020-07-09] MEDS: ASPIRIN 325 MG TAB PO SCH (08:59)
[2020-07-09] MEDS: CELECOXIB 100 MG CAP PO SCH (09:00)
[2020-07-09] MEDS ORDERED: PANTOPRAZOLE SOD 40 MG TABEC PO SCH (09:00)
[2020-07-09] MEDS ORDERED: PREGABALIN 75 MG CAP PO SCH (09:00)
[2020-07-09] MEDS ORDERED: ONDANSETRON HCL 4 MG ORAL DISINTEGRATING TAB PO PRN (09:45)
[2020-07-09 11:25] VITALS: BP 128/55
[2020-07-09] MEDS ORDERED: TRAZODONE HCL 50 MG TAB PO SCH (21:00)
[2020-07-09] MEDS ORDERED: SIMVASTATIN 80 MG TAB PO SCH (21:00)
== END 2020-07-09 14:01 | disposition home or self-care (01) ==
LOC: OR 07:35 → PACU V 10:31 → MED/SURG 11:34
PROVIDERS: ADMIT Specialist; ATTEND Specialist
DX: M17.12 Unilateral primary osteoarthritis, left knee (principal); K21.9 Gastro-esophageal reflux disease without esophagitis; E78.5 Hyperlipidemia, unspecified; D64.9 Anemia, unspecified; G62.9 Polyneuropathy, unspecified
CPT/HCPCS: 27447; 36415; 73560; 85014; 85018; 86850; 86900; 86920; 97110 ×2; 97116 ×2; 97161; 97530 ×2; C1713; C1776 ×3; G0378 ×2; J0131; J0690 ×2; J1100 ×2; J1170; J2001; J2250; J2405; J2704; J2795; J3010; J3370; J7030; J7040; S0164

== ENCOUNTER → 2020-08-16 | Outpatient (RCR) | payer MEDICARE | LOC: PT 07-23 13:51 | PROVIDERS: ATTEND Physician Assistant | DX: Z96.652 Presence of left artificial knee joint (principal); Z47.1 Aftercare following joint replacement surgery ==

== ENCOUNTER 2020-09-06 10:00 | Outpatient (RCR) | payer MEDICARE | END 2020-09-16 | LOC: PT 10:00 | PROVIDERS: ATTEND Physician Assistant | DX: Z47.1 Aftercare following joint replacement surgery (principal); Z96.652 Presence of left artificial knee joint | CPT/HCPCS: 97139 ==

== ENCOUNTER → 2021-07-04 | Day surgery (SDC) | payer MEDICARE ==
[2021-07-02 10:39] LABS: BASOPHILS % 0.3 % (0.0-1.0); EOSINOPHILS % 0.3 % (0.0-6.0); HEMATOCRIT 26.7 % (34.2-44.1); HEMOGLOBIN 8.5 g/dL (12.0-16.0); LYMPHOCYTES % 64.9 % (18.0-39.1); MEAN CORPUSCULAR HEMOGLOBIN 32.1 pg (28-32); MEAN CORPUSCULAR HGB CONC 31.8 g/dL (31-35); MEAN CORPUSCULAR VOLUME 100.8 fL (81-99); MONOCYTES # (AUTO) 0.1 (0.2-0.8); NEUTROPHILS # (AUTO) 0.9 (2.1-6.9); NEUTROPHILS % 30.8 % (38.7-80.0); PLATELET COUNT 89 x10e3/uL (140-360); RED BLOOD COUNT 2.65 x10e6/uL (3.6-5.1); RED CELL DISTRIBUTION WIDTH 21.2 % (11.7-14.4)
[2021-07-02 11:50] LABS: ALBUMIN 3.3 g/dL (3.5-5.0); ALBUMIN/GLOBULIN RATIO 0.9 (0.8-2.0); ANION GAP 11.7 mmol/L (8-16); CALCIUM 9.6 mg/dL (8.4-10.2); CREATININE, SERUM 0.96 mg/dL (0.57-1.11); POTASSIUM 4.7 mmol/L (3.5-5.1)
[2021-07-02 12:26] LABS: ANISOCYTOSIS F; HYPOCHROMASIA F; LYMPHOCYTES % (MANUAL) 56 % (19-48); MONOCYTES % (MANUAL) 9 % (3.4-9.0); NEUTROPHILS % (MANUAL) 35 % (40-74); PLATELET ESTIMATE MODERATELY DECREASED; PLATELET MORPHOLOGY COMMENT FEW LARGE; RBC MORPHOLOGY COMMENT NORMAL
[~2021-07-04] MED LIST changes: +BUPIVACAINE 0.25% 30ML SDV ONE; +CALCIUM PO; +DEXAMETHASONE SOD PHOS INJ 4 MG/ML SDV ONE; +FENTANYL CITRATE/PF 100MCG/2 ML INJ ONE; +HEPARIN SOD (PORCINE) 5,000 UNIT/ML VIAL ONE; +LIDOCAINE HCL 2% LOCAL INJ 5 ML SDV VIAL INJ ONE; +MIDAZOLAM HCL 2 MG/2 ML VIAL ONE; +ONDANSETRON HCL INJ 2MG/ML 2ML 2 MG/ML VIAL ONE; +POVIDONE IODINE 0.05% 0.05 % ML PO ONE; +PROBIOTIC & AC1 EACH PO; +PROPOFOL IV EMULSION 10 MG/ML 20 ML VIAL ONE; +SEVOFLURANE INHAL SOLN 250 ML PEN BTL ONE; +SODIUM CHLORIDE 0.9% 500ML 500 ML ONE; +VITAMIN D310 MCG PO
[2021-07-04 10:45] VITALS: BP 125/55
== END | disposition home or self-care (01) ==
LOC: OR 05:59
PROVIDERS: ATTEND Surgery
DX: D46.9 Myelodysplastic syndrome, unspecified (principal); M06.9 Rheumatoid arthritis, unspecified; M19.90 Unspecified osteoarthritis, unspecified site; K21.9 Gastro-esophageal reflux disease without esophagitis; N30.90 Cystitis, unspecified without hematuria; M54.9 Dorsalgia, unspecified; M54.2 Cervicalgia; F17.210 Nicotine dependence, cigarettes, uncomplicated; Z79.899 Other long term (current) drug therapy
CPT/HCPCS: 36415; 36561; 71046; 76000; 80053; 85025; 93005; C1751; J0690; J1100; J1644; J2001; J2250; J2405; J2704; J3010; J7040; U0002

== ENCOUNTER 2021-09-19 16:05 | Inpatient (IN) | payer MEDICARE ==
[~2021-09-19] VITALS: Ht 170.2 cm; Wt 62.1 kg
[~2021-09-19 16:05] MED LIST changes: -BUPIVACAINE 0.25% 30ML SDV ONE; -DEXAMETHASONE SOD PHOS INJ 4 MG/ML SDV ONE; -FENTANYL CITRATE/PF 100MCG/2 ML INJ ONE; -HEPARIN SOD (PORCINE) 5,000 UNIT/ML VIAL ONE; -LIDOCAINE HCL 2% LOCAL INJ 5 ML SDV VIAL INJ ONE; -MIDAZOLAM HCL 2 MG/2 ML VIAL ONE; -ONDANSETRON HCL INJ 2MG/ML 2ML 2 MG/ML VIAL ONE; -POVIDONE IODINE 0.05% 0.05 % ML PO ONE; -PROPOFOL IV EMULSION 10 MG/ML 20 ML VIAL ONE; -SEVOFLURANE INHAL SOLN 250 ML PEN BTL ONE; -SODIUM CHLORIDE 0.9% 500ML 500 ML ONE
[2021-09-19] MEDS ORDERED: SODIUM CHLORIDE 0.9% 1000ML 1,770 ML IV SCH (16:15)
[2021-09-19] MEDS ORDERED: ACETAMINOPHEN 325 MG TAB PO ONE ×2 (16:15→17:45)
[2021-09-19] MEDS ORDERED: SODIUM CHLORIDE 0.9% 1000ML 1,000 ML ONE (16:37)
[2021-09-19 16:43] LABS: BASOPHILS % 0.4 % (0.0-1.0); LYMPHOCYTES # (AUTO) 0.8 (1.0-3.2); LYMPHOCYTES % 34.9 % (18.0-39.1); MEAN CORPUSCULAR HGB CONC 31.3 g/dL (31-35); MEAN CORPUSCULAR VOLUME 89.4 fL (81-99); MONOCYTES # (AUTO) 0.5 (0.2-0.8); MONOCYTES % 20.7 % (4.4-11.3); NEUTROPHILS # (AUTO) 0.9 (2.1-6.9); NEUTROPHILS % 36.7 % (38.7-80.0); PLATELET COUNT 122 x10e3/uL (140-360); RED BLOOD COUNT 2.36 x10e6/uL (3.6-5.1); RED CELL DISTRIBUTION WIDTH 19.3 % (11.7-14.4)
[2021-09-19 16:54] LABS: HEMATOCRIT 21.1 % (34.2-44.1); HEMOGLOBIN 6.6 g/dL (12.0-16.0)
[2021-09-19 16:56] LABS: INR 1.5; PROTHROMBIN TIME 19.4 seconds (11.9-14.5)
[2021-09-19 16:57] LABS: PARTIAL THROMBOPLASTIN TIME 42.5 seconds (23.8-35.5)
[2021-09-19 17:09] LABS: ALBUMIN 2.4 g/dL (3.5-5.0); ALBUMIN/GLOBULIN RATIO 0.7 (0.8-2.0); ANION GAP 14.7 mmol/L (8-16); CREATININE, SERUM 1.86 mg/dL (0.57-1.11); POTASSIUM 3.7 mmol/L (3.5-5.1)
[2021-09-19 17:10] LABS: CALCIUM 7.4 mg/dL (8.4-10.2)
[2021-09-19 17:19] LABS: ABG HCO3 17 mmol/L (22-26); ABG PCO2 26 mmHg (35-45); ABG PH 7.44 (7.35-7.45); ABG PO2 91 mmHg (80-105); ABG TCO2 18
[2021-09-19 18:11] LABS: CLARITY,URINE SL CLOUDY (CLEAR); COLOR,URINE YELLOW (YELLOW); KETONES,URINE NEGATIVE (NEGATIVE); LEUKOCYTE ESTERASE ,URINE NEGATIVE (NEGATIVE); NITRITE,URINE NEGATIVE (NEGATIVE); PROTEIN,URINE DIPSTICK NEGATIVE (NEGATIVE); URINE UROBILINOGEN 0.2 mg/dL (0.2 - 1)
[2021-09-19] MEDS ORDERED: LACTATED RINGER'S 1,000 ML ONE (18:15)
[2021-09-19] MEDS ORDERED: LACTATED RINGER'S 1,000 ML INJ ONE (18:15)
[2021-09-19 18:19] LABS: BACTERIA,URINE MODERATE /HPF; EPITHELIAL CELLS,URINE FEW /LPF; MUCUS,URINE MODERATE (RARE)
[2021-09-19] MEDS: SODIUM CHLORIDE 0.9% 250ML 250 ML IV ONE (18:42)
[2021-09-19] MEDS ORDERED: Vancomycin IV 1 GM in SODIUM CHLORIDE 0.9% 250ML 250 ML IV ONE (19:00)
[2021-09-19] MEDS ORDERED: SODIUM CHLORIDE 0.9% 250ML 250 ML ONE (20:28)
[2021-09-20] VITALS (9 sets, daily range): BP systolic 91–133; BP diastolic 47–72
[2021-09-20] MEDS ORDERED: ONDANSETRON HCL INJ 2MG/ML 2ML 2 MG/ML VIAL IV PRN (01:15)
[2021-09-20] MEDS ORDERED: Vancomycin IV 1 GM in SODIUM CHLORIDE 0.9% 250ML 250 ML IV ONE (01:30)
[2021-09-20] MEDS: SODIUM CHLORIDE 0.9% 1000ML 1,000 ML IV SCH ×3 (03:13→21:50)
[2021-09-20] MEDS ORDERED: FUROSEMIDE INJ 10 MG/ML 2 ML VIAL IV ONE (08:15)
[2021-09-20 08:36] LABS: HEMATOCRIT 26.8 % (34.2-44.1); HEMOGLOBIN 8.6 g/dL (12.0-16.0); LYMPHOCYTES # (AUTO) 0.5 (1.0-3.2); MEAN CORPUSCULAR HEMOGLOBIN 28.2 pg (28-32); MEAN CORPUSCULAR HGB CONC 32.1 g/dL (31-35); MEAN CORPUSCULAR VOLUME 87.9 fL (81-99); MONOCYTES # (AUTO) 0.2 (0.2-0.8); NEUTROPHILS % 58.2 % (38.7-80.0); PLATELET COUNT 73 x10e3/uL (140-360); RED BLOOD COUNT 3.05 x10e6/uL (3.6-5.1); RED CELL DISTRIBUTION WIDTH 18.1 % (11.7-14.4)
[2021-09-20] MEDS ORDERED: Vancomycin IV 1 GM in SODIUM CHLORIDE 0.9% 250ML 250 ML IV SCH (09:00)
[2021-09-20 11:12] LABS: BAND NEUTROPHILS % (MANUAL) 4 %; LYMPHOCYTES % (MANUAL) 35 % (19-48); MONOCYTES % (MANUAL) 24 % (3.4-9.0); NEUTROPHILS % (MANUAL) 37 % (40-74)
[2021-09-20 11:13] LABS: PLATELET ESTIMATE MODERATELY DECREASED; PLATELET MORPHOLOGY COMMENT NORMAL; RBC MORPHOLOGY COMMENT NORMAL
[2021-09-20] MEDS ORDERED: CITALOPRAM HBR20 MG PO (12:13)
[2021-09-20] MEDS ORDERED: LIOTHYRONINE SO5 MCG PO (12:15)
[2021-09-20] MEDS: Vancomycin IV 1 GM in SODIUM CHLORIDE 0.9% 250ML 250 ML IV SCH (14:59)
[2021-09-20] MEDS: SODIUM CHLORIDE 0.9% 250ML 250 ML IV ONE (20:31)
[2021-09-21] VITALS (8 sets, daily range): BP systolic 107–137; BP diastolic 52–66
[2021-09-21] MEDS: Vancomycin IV 1 GM in SODIUM CHLORIDE 0.9% 250ML 250 ML IV SCH ×2 (02:45→15:11)
[2021-09-21 06:37] LABS: BASOPHILS % 0.6 % (0.0-1.0); HEMATOCRIT 25.9 % (34.2-44.1); HEMOGLOBIN 8.2 g/dL (12.0-16.0); LYMPHOCYTES # (AUTO) 0.4 (1.0-3.2); MEAN CORPUSCULAR HEMOGLOBIN 27.7 pg (28-32); MEAN CORPUSCULAR HGB CONC 31.7 g/dL (31-35); MEAN CORPUSCULAR VOLUME 87.5 fL (81-99); MONOCYTES # (AUTO) 0.1 (0.2-0.8); NEUTROPHILS # (AUTO) 0.8 (2.1-6.9); NEUTROPHILS % 51.3 % (38.7-80.0); PLATELET COUNT 69 x10e3/uL (140-360); RED BLOOD COUNT 2.96 x10e6/uL (3.6-5.1)
[2021-09-21 07:12] LABS: ALBUMIN 2.1 g/dL (3.5-5.0); ALBUMIN/GLOBULIN RATIO 0.6 (0.8-2.0); ANION GAP 11.6 mmol/L (8-16); CALCIUM 7.9 mg/dL (8.4-10.2); CREATININE, SERUM 0.61 mg/dL (0.57-1.11); POTASSIUM 3.6 mmol/L (3.5-5.1)
[2021-09-21] MEDS: CITALOPRAM HYDROBROMIDE 20 MG TAB PO SCH (08:37)
[2021-09-21] MEDS: LIOTHYRONINE SODIUM 5 MCG TAB PO SCH (08:37)
[2021-09-21] MEDS: PREGABALIN 75 MG CAP PO SCH ×2 (08:38→16:51)
[2021-09-21] MEDS: PANTOPRAZOLE SOD 40 MG TABEC PO SCH ×2 (08:38→16:51)
[2021-09-21 09:29] LABS: BAND NEUTROPHILS % (MANUAL) 1 %; EOSINOPHILS % (MANUAL) 2 % (0-7); LYMPHOCYTES % (MANUAL) 17 % (19-48); MONOCYTES % (MANUAL) 11 % (3.4-9.0); NEUTROPHILS % (MANUAL) 69 % (40-74)
[2021-09-21 09:30] LABS: PLATELET ESTIMATE MARKEDLY DECREASED; PLATELET MORPHOLOGY COMMENT NORMAL
[2021-09-21 09:31] LABS: ANISOCYTOSIS MODERATE; POIKILOCYTOSIS SLIGHT; RBC MORPHOLOGY COMMENT ABNORMAL
[2021-09-21] MEDS ORDERED: FILGRASTIM-AAFI 480 MCG/0.8 ML SYRINGE SQ ONE (16:00)
[2021-09-21] MEDS: SIMVASTATIN 80 MG TAB PO SCH (21:40)
[2021-09-21] MEDS: TRAZODONE HCL 50 MG TAB PO SCH (21:40)
[2021-09-22] VITALS (9 sets, daily range): BP systolic 101–138; BP diastolic 53–69
[2021-09-22] MEDS: Vancomycin IV 1 GM in SODIUM CHLORIDE 0.9% 250ML 250 ML IV SCH ×2 (02:50→15:15)
[2021-09-22 07:02] LABS: BASOPHILS % 0.9 % (0.0-1.0); EOSINOPHILS % 0.4 % (0.0-6.0); HEMATOCRIT 26.9 % (34.2-44.1); HEMOGLOBIN 8.4 g/dL (12.0-16.0); LYMPHOCYTES # (AUTO) 0.4 (1.0-3.2); LYMPHOCYTES % 15.8 % (18.0-39.1); MEAN CORPUSCULAR HEMOGLOBIN 27.4 pg (28-32); MEAN CORPUSCULAR HGB CONC 31.2 g/dL (31-35); MEAN CORPUSCULAR VOLUME 87.6 fL (81-99); MONOCYTES # (AUTO) 0.2 (0.2-0.8); NEUTROPHILS # (AUTO) 1.6 (2.1-6.9); NEUTROPHILS % 68.4 % (38.7-80.0); PLATELET COUNT 73 x10e3/uL (140-360); RED BLOOD COUNT 3.07 x10e6/uL (3.6-5.1); RED CELL DISTRIBUTION WIDTH 18.2 % (11.7-14.4)
[2021-09-22 07:28] LABS: ALBUMIN 1.9 g/dL (3.5-5.0); ALBUMIN/GLOBULIN RATIO 0.6 (0.8-2.0); ANION GAP 12.4 mmol/L (8-16); CALCIUM 7.9 mg/dL (8.4-10.2); CREATININE, SERUM 0.64 mg/dL (0.57-1.11); POTASSIUM 3.4 mmol/L (3.5-5.1)
[2021-09-22] MEDS: ACETAMINOPHEN 325 MG TAB PO PRN ×2 (07:50→19:47)
[2021-09-22 08:25] LABS: BAND NEUTROPHILS % (MANUAL) 7 %; LYMPHOCYTES % (MANUAL) 15 % (19-48); METAMYELOCYTES % (MANUAL) 3 % (0-0); MONOCYTES % (MANUAL) 4 % (3.4-9.0); NEUTROPHILS % (MANUAL) 71 % (40-74); PLATELET ESTIMATE MODERATELY DECREASED; PLATELET MORPHOLOGY COMMENT FEW LARGE; RBC MORPHOLOGY COMMENT NORMAL
[2021-09-22 08:26] LABS: ANISOCYTOSIS SLIGHT; HYPOCHROMASIA SLIGHT
[2021-09-22] MEDS: LIOTHYRONINE SODIUM 5 MCG TAB PO SCH (09:24)
[2021-09-22] MEDS: PANTOPRAZOLE SOD 40 MG TABEC PO SCH ×2 (09:24→17:15)
[2021-09-22] MEDS: CITALOPRAM HYDROBROMIDE 20 MG TAB PO SCH (09:24)
[2021-09-22] MEDS: PREGABALIN 75 MG CAP PO SCH ×2 (09:24→17:15)
[2021-09-22] MEDS: TRAZODONE HCL 50 MG TAB PO SCH (20:35)
[2021-09-22] MEDS: SIMVASTATIN 80 MG TAB PO SCH (20:35)
[2021-09-23] MEDS: Vancomycin IV 1 GM in SODIUM CHLORIDE 0.9% 250ML 250 ML IV SCH ×2 (03:10→15:35)
[2021-09-23 04:00] VITALS: BP 128/61
[2021-09-23 07:22] LABS: BASOPHILS % 0.4 % (0.0-1.0); EOSINOPHILS % 0.4 % (0.0-6.0); HEMATOCRIT 27.4 % (34.2-44.1); HEMOGLOBIN 8.7 g/dL (12.0-16.0); LYMPHOCYTES # (AUTO) 0.5 (1.0-3.2); LYMPHOCYTES % 21.7 % (18.0-39.1); MEAN CORPUSCULAR HEMOGLOBIN 27.9 pg (28-32); MEAN CORPUSCULAR HGB CONC 31.8 g/dL (31-35); MEAN CORPUSCULAR VOLUME 87.8 fL (81-99); MONOCYTES # (AUTO) 0.2 (0.2-0.8); MONOCYTES % 7.8 % (4.4-11.3); NEUTROPHILS # (AUTO) 1.4 (2.1-6.9); NEUTROPHILS % 58.8 % (38.7-80.0); PLATELET COUNT 73 x10e3/uL (140-360); RED BLOOD COUNT 3.12 x10e6/uL (3.6-5.1); RED CELL DISTRIBUTION WIDTH 17.9 % (11.7-14.4)
[2021-09-23 07:58] LABS: ALBUMIN 1.9 g/dL (3.5-5.0); ALBUMIN/GLOBULIN RATIO 0.5 (0.8-2.0); ANION GAP 12.4 mmol/L (8-16); CALCIUM 7.8 mg/dL (8.4-10.2); CREATININE, SERUM 0.64 mg/dL (0.57-1.11); POTASSIUM 3.4 mmol/L (3.5-5.1)
[2021-09-23] MEDS: PREGABALIN 75 MG CAP PO SCH ×2 (09:09→17:33)
[2021-09-23] MEDS: CITALOPRAM HYDROBROMIDE 20 MG TAB PO SCH (09:09)
[2021-09-23] MEDS: LIOTHYRONINE SODIUM 5 MCG TAB PO SCH (09:09)
[2021-09-23] MEDS: PANTOPRAZOLE SOD 40 MG TABEC PO SCH ×2 (09:10→17:33)
[2021-09-23] MEDS: DRONABINOL 2.5MG PO SCH (09:10)
[2021-09-23] MEDS: ACETAMINOPHEN 325 MG TAB PO PRN ×2 (09:10→20:57)
[2021-09-23 09:15] VITALS: BP 128/65
[2021-09-23 12:06] VITALS: BP 99/56
[2021-09-23 12:49] LABS: BAND NEUTROPHILS % (MANUAL) 7 %; LYMPHOCYTES % (MANUAL) 21 % (19-48); METAMYELOCYTES % (MANUAL) 2 % (0-0); MONOCYTES % (MANUAL) 9 % (3.4-9.0); NEUTROPHILS % (MANUAL) 61 % (40-74)
[2021-09-23 12:50] LABS: ANISOCYTOSIS MODERATE; HYPOCHROMASIA SLIGHT; OVALOCYTES FEW; PLATELET ESTIMATE MODERATELY DECREASED; PLATELET MORPHOLOGY COMMENT FEW LARGE; RBC MORPHOLOGY COMMENT ABNORMAL
[2021-09-23 16:07] VITALS: BP 118/60
[2021-09-23 20:00] VITALS: BP 140/69
[2021-09-23 20:50] VITALS: BP 140/69
[2021-09-23] MEDS: TRAZODONE HCL 50 MG TAB PO SCH (20:56)
[2021-09-23] MEDS: SIMVASTATIN 80 MG TAB PO SCH (20:56)
[2021-09-24] VITALS (8 sets, daily range): BP systolic 114–135; BP diastolic 60–78
[2021-09-24] MEDS: Vancomycin IV 1 GM in SODIUM CHLORIDE 0.9% 250ML 250 ML IV SCH ×2 (03:45→15:14)
[2021-09-24] MEDS ORDERED: SODIUM CHLORIDE 0.9% 250ML 250 ML ONE (03:50)
[2021-09-24] MEDS ORDERED: POTASSIUM CHLORIDE 10MEQ EA PO ONE (06:30)
[2021-09-24 06:54] LABS: BASOPHILS % 0.4 % (0.0-1.0); EOSINOPHILS % 0.9 % (0.0-6.0); HEMATOCRIT 27.9 % (34.2-44.1); HEMOGLOBIN 8.8 g/dL (12.0-16.0); LYMPHOCYTES # (AUTO) 0.7 (1.0-3.2); LYMPHOCYTES % 30.9 % (18.0-39.1); MEAN CORPUSCULAR HEMOGLOBIN 27.7 pg (28-32); MEAN CORPUSCULAR HGB CONC 31.5 g/dL (31-35); MEAN CORPUSCULAR VOLUME 87.7 fL (81-99); MONOCYTES # (AUTO) 0.1 (0.2-0.8); MONOCYTES % 6.3 % (4.4-11.3); NEUTROPHILS # (AUTO) 1.3 (2.1-6.9); NEUTROPHILS % 59.7 % (38.7-80.0); RED BLOOD COUNT 3.18 x10e6/uL (3.6-5.1); RED CELL DISTRIBUTION WIDTH 17.8 % (11.7-14.4)
[2021-09-24 06:58] LABS: PLATELET COUNT 67 x10e3/uL (140-360)
[2021-09-24 07:21] LABS: ALBUMIN 2.1 g/dL (3.5-5.0); ALBUMIN/GLOBULIN RATIO 0.6 (0.8-2.0); ANION GAP 13.4 mmol/L (8-16); CALCIUM 8.4 mg/dL (8.4-10.2); CREATININE, SERUM 0.62 mg/dL (0.57-1.11); MAGNESIUM 1.5 MG/DL (1.3-2.1); POTASSIUM 3.4 mmol/L (3.5-5.1)
[2021-09-24] MEDS: CITALOPRAM HYDROBROMIDE 20 MG TAB PO SCH (08:40)
[2021-09-24] MEDS: LIOTHYRONINE SODIUM 5 MCG TAB PO SCH (08:40)
[2021-09-24] MEDS: DRONABINOL 2.5MG PO SCH (08:41)
[2021-09-24] MEDS: PANTOPRAZOLE SOD 40 MG TABEC PO SCH ×2 (08:41→16:24)
[2021-09-24] MEDS: PREGABALIN 75 MG CAP PO SCH ×2 (08:41→16:24)
[2021-09-24] MEDS: ACETAMINOPHEN 325 MG TAB PO PRN (19:43)
[2021-09-24] MEDS: SIMVASTATIN 80 MG TAB PO SCH (19:43)
[2021-09-24] MEDS: TRAZODONE HCL 50 MG TAB PO SCH (20:46)
[2021-09-25] VITALS (8 sets, daily range): BP systolic 122–152; BP diastolic 62–79
[2021-09-25] MEDS: Vancomycin IV 1 GM in SODIUM CHLORIDE 0.9% 250ML 250 ML IV SCH (02:45)
[2021-09-25 07:54] LABS: BASOPHILS % 0.5 % (0.0-1.0); EOSINOPHILS % 1.4 % (0.0-6.0); HEMATOCRIT 26.9 % (34.2-44.1); HEMOGLOBIN 8.4 g/dL (12.0-16.0); LYMPHOCYTES # (AUTO) 0.8 (1.0-3.2); LYMPHOCYTES % 35.9 % (18.0-39.1); MEAN CORPUSCULAR HEMOGLOBIN 27.5 pg (28-32); MEAN CORPUSCULAR HGB CONC 31.2 g/dL (31-35); MEAN CORPUSCULAR VOLUME 88.2 fL (81-99); MONOCYTES # (AUTO) 0.2 (0.2-0.8); MONOCYTES % 8.6 % (4.4-11.3); NEUTROPHILS # (AUTO) 1.1 (2.1-6.9); NEUTROPHILS % 52.2 % (38.7-80.0); PLATELET COUNT 62 x10e3/uL (140-360); RED BLOOD COUNT 3.05 x10e6/uL (3.6-5.1); RED CELL DISTRIBUTION WIDTH 17.8 % (11.7-14.4)
[2021-09-25 08:18] LABS: ALBUMIN 2.1 g/dL (3.5-5.0); ALBUMIN/GLOBULIN RATIO 0.5 (0.8-2.0); ANION GAP 15.6 mmol/L (8-16); CALCIUM 8.4 mg/dL (8.4-10.2); CREATININE, SERUM 0.67 mg/dL (0.57-1.11); MAGNESIUM 1.5 MG/DL (1.3-2.1); POTASSIUM 3.6 mmol/L (3.5-5.1)
[2021-09-25] MEDS: CITALOPRAM HYDROBROMIDE 20 MG TAB PO SCH (08:50)
[2021-09-25] MEDS: PANTOPRAZOLE SOD 40 MG TABEC PO SCH ×2 (08:50→16:41)
[2021-09-25] MEDS: DRONABINOL 2.5MG PO SCH (08:50)
[2021-09-25] MEDS: LIOTHYRONINE SODIUM 5 MCG TAB PO SCH (08:50)
[2021-09-25] MEDS: PREGABALIN 75 MG CAP PO SCH ×2 (08:50→16:41)
[2021-09-25 11:14] LABS: BAND NEUTROPHILS % (MANUAL) 2 %; EOSINOPHILS % (MANUAL) 1 % (0-7); LYMPHOCYTES % (MANUAL) 35 % (19-48); MONOCYTES % (MANUAL) 12 % (3.4-9.0); NEUTROPHILS % (MANUAL) 50 % (40-74); PLATELET ESTIMATE MODERATELY DECREASED; PLATELET MORPHOLOGY COMMENT NORMAL; RBC MORPHOLOGY COMMENT NORMAL
[2021-09-25] MEDS: SIMVASTATIN 80 MG TAB PO SCH (21:12)
[2021-09-25] MEDS: TRAZODONE HCL 50 MG TAB PO SCH (21:12)
[2021-09-26] VITALS (10 sets, daily range): BP systolic 114–127; BP diastolic 59–78
[2021-09-26] MEDS: ACETAMINOPHEN 325 MG TAB PO PRN (01:15)
[2021-09-26 07:24] LABS: BASOPHILS % 0.6 % (0.0-1.0); HEMATOCRIT 27.1 % (34.2-44.1); HEMOGLOBIN 8.5 g/dL (12.0-16.0); LYMPHOCYTES # (AUTO) 0.8 (1.0-3.2); LYMPHOCYTES % 48.8 % (18.0-39.1); MEAN CORPUSCULAR HEMOGLOBIN 27.4 pg (28-32); MEAN CORPUSCULAR HGB CONC 31.4 g/dL (31-35); MEAN CORPUSCULAR VOLUME 87.4 fL (81-99); MONOCYTES # (AUTO) 0.1 (0.2-0.8); MONOCYTES % 7.6 % (4.4-11.3); NEUTROPHILS # (AUTO) 0.7 (2.1-6.9); NEUTROPHILS % 41.8 % (38.7-80.0); PLATELET COUNT 56 x10e3/uL (140-360); RED CELL DISTRIBUTION WIDTH 17.7 % (11.7-14.4)
[2021-09-26 07:47] LABS: ALBUMIN 2.2 g/dL (3.5-5.0); ALBUMIN/GLOBULIN RATIO 0.6 (0.8-2.0); ANION GAP 13.7 mmol/L (8-16); CALCIUM 8.4 mg/dL (8.4-10.2); CREATININE, SERUM 0.67 mg/dL (0.57-1.11); POTASSIUM 3.7 mmol/L (3.5-5.1)
[2021-09-26 08:48] LABS: BAND NEUTROPHILS % (MANUAL) 1 %; BLAST CELLS % MANUAL 3; EOSINOPHILS % (MANUAL) 2 % (0-7); LYMPHOCYTES % (MANUAL) 55 % (19-48); MONOCYTES % (MANUAL) 7 % (3.4-9.0); NEUTROPHILS % (MANUAL) 31 % (40-74); PLATELET ESTIMATE MODERATELY DECREASED; PLATELET MORPHOLOGY COMMENT NORMAL; RBC MORPHOLOGY COMMENT NORMAL
[2021-09-26 08:52] LABS: ANISOCYTOSIS SLIGHT; HYPOCHROMASIA SLIGHT; POIKILOCYTOSIS SLIGHT
[2021-09-26] MEDS: CITALOPRAM HYDROBROMIDE 20 MG TAB PO SCH (09:02)
[2021-09-26] MEDS: LIOTHYRONINE SODIUM 5 MCG TAB PO SCH (09:02)
[2021-09-26] MEDS: PREGABALIN 75 MG CAP PO SCH ×2 (09:03→17:08)
[2021-09-26] MEDS: PANTOPRAZOLE SOD 40 MG TABEC PO SCH ×2 (09:03→17:08)
[2021-09-26] MEDS: DRONABINOL 2.5MG PO SCH (09:03)
[2021-09-26] MEDS: SIMVASTATIN 80 MG TAB PO SCH (21:52)
[2021-09-26] MEDS: TRAZODONE HCL 50 MG TAB PO SCH (21:52)
[2021-09-27 00:50] VITALS: BP 124/56
[2021-09-27 05:00] VITALS: BP 102/77
[2021-09-27 06:51] LABS: BASOPHILS % 0.5 % (0.0-1.0); EOSINOPHILS % 1.4 % (0.0-6.0); HEMATOCRIT 26.8 % (34.2-44.1); HEMOGLOBIN 8.3 g/dL (12.0-16.0); LYMPHOCYTES # (AUTO) 1.1 (1.0-3.2); LYMPHOCYTES % 48.6 % (18.0-39.1); MEAN CORPUSCULAR HEMOGLOBIN 27.4 pg (28-32); MEAN CORPUSCULAR VOLUME 88.4 fL (81-99); MONOCYTES # (AUTO) 0.2 (0.2-0.8); MONOCYTES % 7.2 % (4.4-11.3); NEUTROPHILS # (AUTO) 0.9 (2.1-6.9); NEUTROPHILS % 40.9 % (38.7-80.0); PLATELET COUNT 66 x10e3/uL (140-360); RED BLOOD COUNT 3.03 x10e6/uL (3.6-5.1); RED CELL DISTRIBUTION WIDTH 17.7 % (11.7-14.4)
[2021-09-27 07:22] LABS: ALBUMIN 2.3 g/dL (3.5-5.0); ALBUMIN/GLOBULIN RATIO 0.6 (0.8-2.0); ANION GAP 13.1 mmol/L (8-16); CALCIUM 8.4 mg/dL (8.4-10.2); CREATININE, SERUM 0.7 mg/dL (0.57-1.11); MAGNESIUM 1.6 MG/DL (1.3-2.1); POTASSIUM 4.1 mmol/L (3.5-5.1)
[2021-09-27 08:00] VITALS: BP 107/57
[2021-09-27] MEDS: CITALOPRAM HYDROBROMIDE 20 MG TAB PO SCH (08:20)
[2021-09-27] MEDS: PREGABALIN 75 MG CAP PO SCH (08:20)
[2021-09-27] MEDS: DRONABINOL 2.5MG PO SCH (08:20)
[2021-09-27] MEDS: PANTOPRAZOLE SOD 40 MG TABEC PO SCH (08:20)
[2021-09-27] MEDS: LIOTHYRONINE SODIUM 5 MCG TAB PO SCH (08:20)
[2021-09-27 08:55] VITALS: BP 107/57
[2021-09-27 08:57] VITALS: BP 107/57
== END 2021-09-27 10:05 | disposition home health service (06) | DRG 812 ==
LOC: ER 16:11 → ERHOLD 09-20 01:11 → MED/SURG3 09-20 02:46
PROVIDERS: ADMIT Internal Medicine; ATTEND Internal Medicine
PROC: 30243N1 Transfusion of Nonautologous Red Blood Cells into Central Vein, Percutaneous Approach (ICD-10-PCS; principal; 2021-09-20)
DX: D46.9 Myelodysplastic syndrome, unspecified (principal); E44.0 Moderate protein-calorie malnutrition; D84.9 Immunodeficiency, unspecified; D61.818 Other pancytopenia; I10 Essential (primary) hypertension; Z68.21 Body mass index [BMI] 21.0-21.9, adult; F41.9 Anxiety disorder, unspecified; K21.9 Gastro-esophageal reflux disease without esophagitis; G62.9 Polyneuropathy, unspecified; N28.9 Disorder of kidney and ureter, unspecified; T45.1X5A Adverse effect of antineoplastic and immunosuppressive drugs, initial encounter; Z20.822 Contact with and (suspected) exposure to COVID-19; D70.9 Neutropenia, unspecified; R50.81 Fever presenting with conditions classified elsewhere; D69.6 Thrombocytopenia, unspecified
CPT/HCPCS: 36415; 36600; 71045; 80053; 80202; 81001; 82805; 83605; 83735; 85025; 85610; 85730; 86850; 86900; 86920; 87040; 87086; 93005; 94799; 99285; J0692; J1442; J1940; J2405; J2543; J3370; J7030; J7050; J7121; P9016

== ENCOUNTER 2021-10-10 12:04 | Emergency (ER) | payer MEDICARE ==
[~2021-10-10] VITALS: Ht 170.2 cm; Wt 62.1 kg
[~2021-10-10 12:04] MED LIST changes: +CITALOPRAM HBR20 MG PO; +LIOTHYRONINE SO5 MCG PO
[2021-10-10 14:43] LABS: EOSINOPHILS # (AUTO) 0.1 (0.0-0.4); EOSINOPHILS % 2.2 % (0.0-6.0); HEMATOCRIT 26.3 % (34.2-44.1); HEMOGLOBIN 7.9 g/dL (12.0-16.0); LYMPHOCYTES # (AUTO) 1.3 (1.0-3.2); LYMPHOCYTES % 41.7 % (18.0-39.1); MEAN CORPUSCULAR HEMOGLOBIN 26.8 pg (28-32); MEAN CORPUSCULAR VOLUME 89.2 fL (81-99); MONOCYTES # (AUTO) 0.4 (0.2-0.8); MONOCYTES % 13.4 % (4.4-11.3); NEUTROPHILS # (AUTO) 1.2 (2.1-6.9); NEUTROPHILS % 39.5 % (38.7-80.0); PLATELET COUNT 152 x10e3/uL (140-360); RED BLOOD COUNT 2.95 x10e6/uL (3.6-5.1); RED CELL DISTRIBUTION WIDTH 18.9 % (11.7-14.4)
[2021-10-10 14:46] LABS: INR 1.01; PROTHROMBIN TIME 14.2 seconds (11.9-14.5)
[2021-10-10 14:47] LABS: PARTIAL THROMBOPLASTIN TIME 39.7 seconds (23.8-35.5)
[2021-10-10 14:55] LABS: ALBUMIN/GLOBULIN RATIO 0.7 (0.8-2.0); ANION GAP 15.5 mmol/L (8-16); CALCIUM 9.5 mg/dL (8.4-10.2); CREATININE, SERUM 0.81 mg/dL (0.57-1.11); POTASSIUM 4.5 mmol/L (3.5-5.1)
[2021-10-10 16:21] VITALS: BP 134/78
[2021-10-10 18:37] LABS: ANISOCYTOSIS SLIGHT; HYPOCHROMASIA SLIGHT; POIKILOCYTOSIS SLIGHT
[2021-10-10 18:39] LABS: PLATELET ESTIMATE ADEQUATE; SCHISTOCYTES FEW
[2021-10-10 18:40] LABS: PLATELET MORPHOLOGY COMMENT MANY GIANT
== END 2021-10-10 16:22 | disposition home or self-care (01) ==
LOC: ER 12:12
DX: D46.9 Myelodysplastic syndrome, unspecified (principal); E78.5 Hyperlipidemia, unspecified; K21.9 Gastro-esophageal reflux disease without esophagitis; Z96.652 Presence of left artificial knee joint
CPT/HCPCS: 0223U; 36415; 71045; 80053; 85025; 85610; 85730; 86850; 86900; 99283

== ENCOUNTER 2021-11-20 09:40 | Observation (INO) | payer MEDICARE ==
[~2021-11-20] VITALS: Ht 170.2 cm; Wt 55.8 kg
[~2021-11-20 09:40] MED LIST changes: +SODIUM CHLORIDE FLUSH 10 ML SYR IV PRN
[2021-11-20 10:38] LABS: CLARITY,URINE CLOUDY (CLEAR); COLOR,URINE YELLOW (YELLOW); LEUKOCYTE ESTERASE ,URINE NEGATIVE (NEGATIVE); NITRITE,URINE NEGATIVE (NEGATIVE); PROTEIN,URINE DIPSTICK TRACE (NEGATIVE)
[2021-11-20 10:39] LABS: KETONES,URINE TRACE (NEGATIVE); URINE UROBILINOGEN 0.2 mg/dL (0.2 - 1)
[2021-11-20 10:40] LABS: INR 1.05; PROTHROMBIN TIME 14.7 seconds (11.9-14.5)
[2021-11-20 10:41] LABS: PARTIAL THROMBOPLASTIN TIME 33.9 seconds (23.8-35.5)
[2021-11-20 10:48] LABS: ALANINE AMINOTRANSFERASE 17 IU/L (0-55); ALBUMIN/GLOBULIN RATIO 0.7 (0.8-2.0); ALKALINE PHOSPHATASE 91 IU/L (40-150); ANION GAP 14.3 mmol/L (8-16); BLOOD UREA NITROGEN 30 mg/dL (7-26); BUN/CREATININE RATIO 34 (6-25); CALCIUM 8.9 mg/dL (8.4-10.2); CARBON DIOXIDE 25 mmol/L (22-29); CHLORIDE 99 mmol/L (98-107); CREATININE, SERUM 0.88 mg/dL (0.57-1.11); GLUCOSE 123 mg/dL (74-118); POTASSIUM 4.3 mmol/L (3.5-5.1); SODIUM 134 mmol/L (136-145)
[2021-11-20 10:59] LABS: BACTERIA,URINE FEW /HPF; CALCIUM OXALATE CRYSTALS,UR MODERATE (FEW); EPITHELIAL CELLS,URINE FEW /LPF; RBC,URINE 0-5 /HPF (0-5); TRANSITIONAL EPI CELLS,URINE RARE; WBC,URINE (MAN) 0-5 /HPF (0-5)
[2021-11-20 11:45] LABS: BASOPHILS % 0.3 % (0.0-1.0); EOSINOPHILS % 0.5 % (0.0-6.0); LYMPHOCYTES # (AUTO) 1.1 (1.0-3.2); LYMPHOCYTES % 28.6 % (18.0-39.1); MEAN CORPUSCULAR HEMOGLOBIN 26.4 pg (28-32); MEAN CORPUSCULAR HGB CONC 31.3 g/dL (31-35); MEAN CORPUSCULAR VOLUME 84.5 fL (81-99); NEUTROPHILS # (AUTO) 1.5 (2.1-6.9); NEUTROPHILS % 39.4 % (38.7-80.0); RED BLOOD COUNT 2.65 x10e6/uL (3.6-5.1); RED CELL DISTRIBUTION WIDTH 18.7 % (11.7-14.4)
[2021-11-20 11:52] LABS: HEMATOCRIT 22.4 % (34.2-44.1); PLATELET COUNT 34 x10e3/uL (140-360)
[2021-11-20 12:00] LABS: BAND NEUTROPHILS % (MANUAL) 4 %; EOSINOPHILS % (MANUAL) 1 % (0-7); LYMPHOCYTES % (MANUAL) 32 % (19-48); METAMYELOCYTES % (MANUAL) 3 % (0-0); MONOCYTES % (MANUAL) 25 % (3.4-9.0); NEUTROPHILS % (MANUAL) 33 % (40-74); PLATELET ESTIMATE MARKEDLY DECREASED; PLATELET MORPHOLOGY COMMENT FEW LARGE
[2021-11-20 12:01] LABS: ANISOCYTOSIS MODERATE; HYPOCHROMASIA SLIGHT; OVALOCYTES FEW; RBC MORPHOLOGY COMMENT ABNORMAL
[2021-11-20] MEDS ORDERED: ONDANSETRON HCL INJ 2MG/ML 2ML 2 MG/ML VIAL IV PRN (12:15)
[2021-11-20] MEDS ORDERED: SODIUM CHLORIDE 0.9% 250ML 250 ML IV ONE (12:15)
[2021-11-20] MEDS ORDERED: ACETAMINOPHEN 325 MG TAB PO PRN (12:15)
[2021-11-20 15:46] VITALS: BP 109/58
[2021-11-20] MEDS: HYDROCODONE/APAP 10MG-325MG TAB PO PRN ×2 (17:29→21:35)
[2021-11-20] MEDS ORDERED: SODIUM CHLORIDE 0.9% 250ML 250 ML ONE (18:03)
[2021-11-20 20:29] VITALS: BP 91/49
[2021-11-20] MEDS ORDERED: SIMVASTATIN 80 MG TAB PO SCH (21:00)
[2021-11-20] MEDS: PANTOPRAZOLE SOD 40 MG TABEC PO SCH (21:00)
[2021-11-20] MEDS: PREGABALIN 75 MG CAP PO SCH (21:00)
[2021-11-20] MEDS ORDERED: TRAZODONE HCL 50 MG TAB PO SCH (21:00)
[2021-11-20 21:30] VITALS: BP 91/49
[2021-11-21 00:01] VITALS: BP 93/48
[2021-11-21] MEDS ORDERED: KETOROLAC TROMETHAMINE 30 MG/ML VIAL IV PRN (04:00)
[2021-11-21 05:03] LABS: BASOPHILS % 0.4 % (0.0-1.0); EOSINOPHILS % 0.4 % (0.0-6.0); HEMATOCRIT 27.7 % (34.2-44.1); HEMOGLOBIN 9.5 g/dL (12.0-16.0); LYMPHOCYTES % 37.7 % (18.0-39.1); MEAN CORPUSCULAR HEMOGLOBIN 28.4 pg (28-32); MEAN CORPUSCULAR HGB CONC 34.3 g/dL (31-35); MEAN CORPUSCULAR VOLUME 82.7 fL (81-99); MONOCYTES # (AUTO) 0.5 (0.2-0.8); MONOCYTES % 19.2 % (4.4-11.3); NEUTROPHILS % 38.5 % (38.7-80.0); RED BLOOD COUNT 3.35 x10e6/uL (3.6-5.1); RED CELL DISTRIBUTION WIDTH 16.5 % (11.7-14.4)
[2021-11-21 05:06] VITALS: BP 89/52
[2021-11-21 05:07] LABS: PLATELET COUNT 26 x10e3/uL (140-360)
[2021-11-21] MEDS: HYDROCODONE/APAP 10MG-325MG TAB PO PRN (05:22)
[2021-11-21] MEDS ORDERED: IOPAMIDOL 370 MG/ML 100 ML INFUS..BTL INJ ONE (06:03)
[2021-11-21 07:48] VITALS: BP 86/55
[2021-11-21 08:22] VITALS: BP 86/55
[2021-11-21 08:44] LABS: BAND NEUTROPHILS % (MANUAL) 4 %; LYMPHOCYTES % (MANUAL) 42 % (19-48); METAMYELOCYTES % (MANUAL) 5 % (0-0); MONOCYTES % (MANUAL) 18 % (3.4-9.0); MYELOCYTES % (MANUAL) 3 % (0-0); NEUTROPHILS % (MANUAL) 25 % (40-74)
[2021-11-21 08:47] LABS: PLATELET ESTIMATE MODERATELY DECREASED; PLATELET MORPHOLOGY COMMENT FEW LARGE; POIKILOCYTOSIS MODERATE
[2021-11-21] MEDS ORDERED: LACTOBACILLUS ACIDOPHILUS CAPSULE PO SCH (09:00)
[2021-11-21] MEDS ORDERED: LIOTHYRONINE SODIUM 5 MCG TAB PO SCH (09:00)
[2021-11-21] MEDS ORDERED: CITALOPRAM HYDROBROMIDE 20 MG TAB PO SCH (09:00)
[2021-11-21] MEDS: PREGABALIN 75 MG CAP PO SCH (09:39)
[2021-11-21] MEDS: PANTOPRAZOLE SOD 40 MG TABEC PO SCH (09:39)
[2021-11-21 11:49] VITALS: BP 102/57
[2021-11-21] MEDS ORDERED: MIDODRINE 2.5 MG TAB PO SCH (12:00)
[2021-11-21] MEDS ORDERED: ONDANSETRON HCL 4 MG ORAL DISINTEGRATING TAB PO PRN (14:45)
== END 2021-11-21 16:14 | disposition home or self-care (01) ==
LOC: ER 09:52 → ERHOLD 12:19 → MED/SURG2 15:28
PROVIDERS: ADMIT Internal Medicine; ATTEND Internal Medicine
DX: D61.818 Other pancytopenia (principal); D46.9 Myelodysplastic syndrome, unspecified; K21.9 Gastro-esophageal reflux disease without esophagitis; E03.9 Hypothyroidism, unspecified; F41.9 Anxiety disorder, unspecified; E78.00 Pure hypercholesterolemia, unspecified; M10.9 Gout, unspecified; E78.5 Hyperlipidemia, unspecified; Z20.822 Contact with and (suspected) exposure to COVID-19
CPT/HCPCS: 36415 ×2; 71045; 73701; 80053; 81001; 83880; 84484; 85025 ×2; 85610; 85730; 86850; 86900; 86920; 93005; 99284; G0378 ×2; J1885; J7050; P9016; Q9967; S0164; U0002

== ENCOUNTER 2021-12-04 09:11 | Observation (INO) | payer MEDICARE ==
[~2021-12-04] VITALS: Ht 170.2 cm; Wt 55.8 kg
[~2021-12-04 09:11] MED LIST changes: -SODIUM CHLORIDE FLUSH 10 ML SYR IV PRN
[2021-12-04 10:12] LABS: BASOPHILS % 0.6 % (0.0-1.0); EOSINOPHILS % 0.6 % (0.0-6.0); HEMOGLOBIN 10.6 g/dL (12.0-16.0); LYMPHOCYTES # (AUTO) 0.9 (1.0-3.2); MEAN CORPUSCULAR HEMOGLOBIN 28.1 pg (28-32); MEAN CORPUSCULAR HGB CONC 33.1 g/dL (31-35); MEAN CORPUSCULAR VOLUME 84.9 fL (81-99); MONOCYTES # (AUTO) 0.2 (0.2-0.8); MONOCYTES % 10.2 % (4.4-11.3); NEUTROPHILS # (AUTO) 0.6 (2.1-6.9); NEUTROPHILS % 33.2 % (38.7-80.0); RED BLOOD COUNT 3.77 x10e6/uL (3.6-5.1); RED CELL DISTRIBUTION WIDTH 17.3 % (11.7-14.4)
[2021-12-04 10:22] LABS: PLATELET COUNT 15 x10e3/uL (140-360)
[2021-12-04 10:39] LABS: ANION GAP 16.7 mmol/L (8-16); CALCIUM 9.7 mg/dL (8.4-10.2); CREATININE, SERUM 0.78 mg/dL (0.57-1.11); POTASSIUM 3.7 mmol/L (3.5-5.1)
[2021-12-04 10:53] LABS: BAND NEUTROPHILS % (MANUAL) 1 %; EOSINOPHILS % (MANUAL) 3 % (0-7); LYMPHOCYTES % (MANUAL) 61 % (19-48); MONOCYTES % (MANUAL) 15 % (3.4-9.0); MYELOCYTES % (MANUAL) 1 % (0-0); NEUTROPHILS % (MANUAL) 19 % (40-74)
[2021-12-04 10:54] LABS: PLATELET ESTIMATE MARKEDLY DECREASED; PLATELET MORPHOLOGY COMMENT NORMAL; RBC MORPHOLOGY COMMENT NORMAL
[2021-12-04] MEDS ORDERED: SODIUM CHLORIDE 0.9% 250ML 250 ML ONE (12:31)
[2021-12-04 15:46] LABS: EOSINOPHILS % 1.2 % (0.0-6.0); HEMOGLOBIN 7.9 g/dL (12.0-16.0); LYMPHOCYTES # (AUTO) 0.8 (1.0-3.2); LYMPHOCYTES % 49.4 % (18.0-39.1); MEAN CORPUSCULAR HEMOGLOBIN 27.7 pg (28-32); MEAN CORPUSCULAR HGB CONC 31.6 g/dL (31-35); MEAN CORPUSCULAR VOLUME 87.7 fL (81-99); MONOCYTES # (AUTO) 0.3 (0.2-0.8); MONOCYTES % 17.1 % (4.4-11.3); NEUTROPHILS # (AUTO) 0.5 (2.1-6.9); NEUTROPHILS % 29.4 % (38.7-80.0); PLATELET COUNT 115 x10e3/uL (140-360); RED BLOOD COUNT 2.85 x10e6/uL (3.6-5.1); RED CELL DISTRIBUTION WIDTH 17.4 % (11.7-14.4)
[2021-12-04] MEDS ORDERED: INSULIN REGULAR, HUMAN 100 UNIT/1 ML IV ONE (16:15)
[2021-12-04 18:25] VITALS: BP 133/62
[2021-12-04 18:26] VITALS: BP 133/62
[2021-12-04 18:36] VITALS: BP 133/62
[2021-12-04 21:08] VITALS: BP 131/56
[2021-12-05 01:10] VITALS: BP 103/54
[2021-12-05 02:51] VITALS: BP 103/54
[2021-12-05 05:47] VITALS: BP 115/60
[2021-12-05 06:50] LABS: BASOPHILS % 0.6 % (0.0-1.0); EOSINOPHILS % 1.7 % (0.0-6.0); HEMATOCRIT 26.8 % (34.2-44.1); HEMOGLOBIN 8.7 g/dL (12.0-16.0); LYMPHOCYTES % 54.4 % (18.0-39.1); MEAN CORPUSCULAR HEMOGLOBIN 27.7 pg (28-32); MEAN CORPUSCULAR HGB CONC 32.5 g/dL (31-35); MEAN CORPUSCULAR VOLUME 85.4 fL (81-99); MONOCYTES # (AUTO) 0.3 (0.2-0.8); MONOCYTES % 18.3 % (4.4-11.3); NEUTROPHILS # (AUTO) 0.4 (2.1-6.9); NEUTROPHILS % 23.3 % (38.7-80.0); RED BLOOD COUNT 3.14 x10e6/uL (3.6-5.1); RED CELL DISTRIBUTION WIDTH 17.7 % (11.7-14.4)
[2021-12-05 07:13] LABS: PLATELET COUNT 93 x10e3/uL (140-360)
[2021-12-05] MEDS ORDERED: LIOTHYRONINE SODIUM 5 MCG TAB PO SCH (07:30)
[2021-12-05] MEDS ORDERED: PANTOPRAZOLE SOD 40 MG TABEC PO SCH (07:30)
[2021-12-05 08:24] VITALS: BP 123/60
[2021-12-05 08:45] VITALS: BP 123/60
[2021-12-05 08:51] LABS: BAND NEUTROPHILS % (MANUAL) 1 %; LYMPHOCYTES % (MANUAL) 61 % (19-48); MONOCYTES % (MANUAL) 17 % (3.4-9.0); NEUTROPHILS % (MANUAL) 21 % (40-74); PLATELET ESTIMATE SLIGHTLY DECREASED; PLATELET MORPHOLOGY COMMENT NORMAL; RBC MORPHOLOGY COMMENT NORMAL
[2021-12-05] MEDS ORDERED: PREGABALIN 75 MG CAP PO SCH (09:00)
[2021-12-05] MEDS ORDERED: CITALOPRAM HYDROBROMIDE 20 MG TAB PO SCH (09:00)
[2021-12-05] MEDS ORDERED: SIMVASTATIN 80 MG TAB PO SCH (21:00)
== END 2021-12-05 11:20 | disposition home or self-care (01) ==
LOC: ER 09:18 → ERHOLD 09:45 → MED/SURG3 16:46
PROVIDERS: ADMIT Internal Medicine; ATTEND Internal Medicine
DX: D61.811 Other drug-induced pancytopenia (principal); D46.9 Myelodysplastic syndrome, unspecified; T50.905A Adverse effect of unspecified drugs, medicaments and biological substances, initial encounter; Z20.822 Contact with and (suspected) exposure to COVID-19
CPT/HCPCS: 0223U; 36415 ×2; 80048; 85025 ×2; 86850; 86900; 94799; 99284; G0378 ×2; J7050; P9034; S0164

== ENCOUNTER 2021-12-15 10:34 | Observation (INO) | payer MEDICARE ==
[~2021-12-15] VITALS: Ht 170.2 cm; Wt 55.8 kg
[2021-12-15 11:07] LABS: HEMATOCRIT 24.3 % (34.2-44.1); HEMOGLOBIN 7.6 g/dL (12.0-16.0); LYMPHOCYTES # (AUTO) 0.8 (1.0-3.2); MEAN CORPUSCULAR HEMOGLOBIN 27.2 pg (28-32); MEAN CORPUSCULAR HGB CONC 31.3 g/dL (31-35); MEAN CORPUSCULAR VOLUME 87.1 fL (81-99); MONOCYTES # (AUTO) 0.1 (0.2-0.8); MONOCYTES % 6.4 % (4.4-11.3); NEUTROPHILS # (AUTO) 0.4 (2.1-6.9); RED BLOOD COUNT 2.79 x10e6/uL (3.6-5.1); RED CELL DISTRIBUTION WIDTH 18.2 % (11.7-14.4)
[2021-12-15 11:12] LABS: PLATELET COUNT 9 x10e3/uL (140-360)
[2021-12-15 11:23] LABS: CALCIUM 9.2 mg/dL (8.4-10.2); CREATININE, SERUM 0.82 mg/dL (0.57-1.11)
[2021-12-15] MEDS ORDERED: SODIUM CHLORIDE 0.9% 250ML 250 ML IV ONE (11:45)
[2021-12-15 13:05] VITALS: BP 106/50
[2021-12-15 13:19] LABS: BAND NEUTROPHILS % (MANUAL) 1 %; EOSINOPHILS % (MANUAL) 1 % (0-7); LYMPHOCYTES % (MANUAL) 65 % (19-48); METAMYELOCYTES % (MANUAL) 1 % (0-0); MONOCYTES % (MANUAL) 16 % (3.4-9.0); MYELOCYTES % (MANUAL) 1 % (0-0); NEUTROPHILS % (MANUAL) 15 % (40-74)
[2021-12-15 13:20] LABS: PLATELET ESTIMATE MARKEDLY DECREASED; PLATELET MORPHOLOGY COMMENT NORMAL; RBC MORPHOLOGY COMMENT NORMAL
[2021-12-15 13:40] VITALS: BP 106/50
[2021-12-15 14:10] VITALS: BP 106/50
[2021-12-15] MEDS ORDERED: SODIUM CHLORIDE 0.9% 250ML 250 ML ONE ×2 (15:10→18:07)
[2021-12-15 15:49] VITALS: BP 99/52
[2021-12-15 20:07] VITALS: BP 110/56
[2021-12-15 21:00] VITALS: BP 110/56
[2021-12-16] VITALS: BP 93/55
[2021-12-16 04:00] VITALS: BP 102/48
[2021-12-16 05:16] LABS: EOSINOPHILS % 0.6 % (0.0-6.0); HEMOGLOBIN 7.7 g/dL (12.0-16.0); LYMPHOCYTES % 60.5 % (18.0-39.1); MEAN CORPUSCULAR HEMOGLOBIN 28.1 pg (28-32); MEAN CORPUSCULAR HGB CONC 33.5 g/dL (31-35); MONOCYTES # (AUTO) 0.2 (0.2-0.8); MONOCYTES % 9.6 % (4.4-11.3); NEUTROPHILS # (AUTO) 0.4 (2.1-6.9); PLATELET COUNT 175 x10e3/uL (140-360); RED BLOOD COUNT 2.74 x10e6/uL (3.6-5.1)
[2021-12-16 05:19] LABS: MEAN CORPUSCULAR VOLUME 83.9 fL (81-99)
[2021-12-16 05:31] LABS: ANION GAP 17.2 mmol/L (8-16); CALCIUM 9.1 mg/dL (8.4-10.2); CREATININE, SERUM 0.7 mg/dL (0.57-1.11); POTASSIUM 4.2 mmol/L (3.5-5.1)
[2021-12-16 08:05] VITALS: BP 112/54
[2021-12-16 08:41] VITALS: BP 112/54
[2021-12-16 08:57] LABS: ANISOCYTOSIS SLIGHT; BAND NEUTROPHILS % (MANUAL) 2 %; LYMPHOCYTES % (MANUAL) 68 % (19-48); METAMYELOCYTES % (MANUAL) 1 % (0-0); MONOCYTES % (MANUAL) 6 % (3.4-9.0); MYELOCYTES % (MANUAL) 1 % (0-0); NEUTROPHILS % (MANUAL) 22 % (40-74); PLATELET ESTIMATE ADEQUATE; PLATELET MORPHOLOGY COMMENT NORMAL
[2021-12-16 08:58] LABS: ELLIPTOCYTE, RBC SLIGHT; OVALOCYTES FEW; SCHISTOCYTES FEW
[2021-12-16 08:59] LABS: RBC MORPHOLOGY COMMENT ABNORMAL
[2021-12-16] MEDS ORDERED: CITALOPRAM HYDROBROMIDE 20 MG TAB PO SCH (09:00)
[2021-12-16] MEDS ORDERED: LIOTHYRONINE SODIUM 5 MCG TAB PO SCH (09:00)
[2021-12-16] MEDS ORDERED: LACTOBACILLUS ACIDOPHILUS CAPSULE PO SCH (09:00)
[2021-12-16] MEDS ORDERED: PANTOPRAZOLE SOD 40 MG TABEC PO SCH (09:00)
[2021-12-16] MEDS ORDERED: PREGABALIN 75 MG CAP PO SCH (09:00)
[2021-12-16 11:13] LABS: EOSINOPHILS % 1.3 % (0.0-6.0); HEMATOCRIT 28.4 % (34.2-44.1); HEMOGLOBIN 9.5 g/dL (12.0-16.0); LYMPHOCYTES # (AUTO) 0.9 (1.0-3.2); LYMPHOCYTES % 57.1 % (18.0-39.1); MEAN CORPUSCULAR HEMOGLOBIN 28.3 pg (28-32); MEAN CORPUSCULAR HGB CONC 33.5 g/dL (31-35); MEAN CORPUSCULAR VOLUME 84.5 fL (81-99); MONOCYTES # (AUTO) 0.2 (0.2-0.8); MONOCYTES % 12.3 % (4.4-11.3); NEUTROPHILS # (AUTO) 0.4 (2.1-6.9); NEUTROPHILS % 27.4 % (38.7-80.0); PLATELET COUNT 143 x10e3/uL (140-360); RED BLOOD COUNT 3.36 x10e6/uL (3.6-5.1); RED CELL DISTRIBUTION WIDTH 16.4 % (11.7-14.4)
[2021-12-16 11:57] VITALS: BP 114/83
[2021-12-16 15:38] VITALS: BP 100/58
[2021-12-16] MEDS ORDERED: SIMVASTATIN 80 MG TAB PO SCH (21:00)
[2021-12-16] MEDS ORDERED: TRAZODONE HCL 50 MG TAB PO SCH (21:00)
== END 2021-12-16 16:40 | disposition home or self-care (01) ==
LOC: ER 10:46 → ERHOLD 11:37 → MED/SURG2 12:51
PROVIDERS: ADMIT Internal Medicine; ATTEND Internal Medicine
DX: D61.818 Other pancytopenia (principal); D46.9 Myelodysplastic syndrome, unspecified; E78.5 Hyperlipidemia, unspecified; G62.9 Polyneuropathy, unspecified; D70.9 Neutropenia, unspecified; D69.6 Thrombocytopenia, unspecified; F41.9 Anxiety disorder, unspecified; Z20.822 Contact with and (suspected) exposure to COVID-19; T45.1X5S Adverse effect of antineoplastic and immunosuppressive drugs, sequela
CPT/HCPCS: 0223U; 36415 ×2; 80048 ×2; 85025 ×2; 86850; 86900; 86920; 93005; 94799 ×2; 99251; 99284; G0378 ×2; J7050; P9016 ×2; P9034; S0164

== ENCOUNTER 2021-12-31 12:16 | Inpatient (IN) | payer MEDICARE ==
[2021-12-31] VITALS (8 sets, daily range): BP systolic 91–128; BP diastolic 48–59
[~2021-12-31] VITALS: Ht 170.2 cm; Wt 56.2 kg
[2021-12-31] MEDS ORDERED: ONDANSETRON HCL INJ 2MG/ML 2ML 2 MG/ML VIAL IV PRN ×2 (12:30→13:45)
[2021-12-31] MEDS ORDERED: SODIUM CHLORIDE 0.9% 1000ML 1,000 ML IV ONE ×2 (12:30→14:15)
[2021-12-31 13:12] LABS: INR 1.3; PROTHROMBIN TIME 17.3 seconds (11.9-14.5)
[2021-12-31 13:13] LABS: PARTIAL THROMBOPLASTIN TIME 34.3 seconds (23.8-35.5)
[2021-12-31 13:16] LABS: EOSINOPHILS % 0.8 % (0.0-6.0); HEMATOCRIT 26.5 % (34.2-44.1); HEMOGLOBIN 8.2 g/dL (12.0-16.0); LYMPHOCYTES # (AUTO) 0.6 (1.0-3.2); LYMPHOCYTES % 52.5 % (18.0-39.1); MEAN CORPUSCULAR HEMOGLOBIN 27.6 pg (28-32); MEAN CORPUSCULAR HGB CONC 30.9 g/dL (31-35); MEAN CORPUSCULAR VOLUME 89.2 fL (81-99); MONOCYTES # (AUTO) 0.3 (0.2-0.8); MONOCYTES % 23.3 % (4.4-11.3); NEUTROPHILS # (AUTO) 0.2 (2.1-6.9); NEUTROPHILS % 17.6 % (38.7-80.0); RED BLOOD COUNT 2.97 x10e6/uL (3.6-5.1); RED CELL DISTRIBUTION WIDTH 16.2 % (11.7-14.4)
[2021-12-31 13:17] LABS: PLATELET COUNT 10 x10e3/uL (140-360)
[2021-12-31 13:27] LABS: ALBUMIN 2.5 g/dL (3.5-5.0); ALBUMIN/GLOBULIN RATIO 0.8 (0.8-2.0); ANION GAP 16.6 mmol/L (8-16); CALCIUM 8.5 mg/dL (8.4-10.2); CREATININE, SERUM 1.44 mg/dL (0.57-1.11); POTASSIUM 3.6 mmol/L (3.5-5.1)
[2021-12-31 13:35] LABS: CLARITY,URINE CLEAR (CLEAR); COLOR,URINE YELLOW (YELLOW); KETONES,URINE NEGATIVE (NEGATIVE); LEUKOCYTE ESTERASE ,URINE NEGATIVE (NEGATIVE); NITRITE,URINE NEGATIVE (NEGATIVE); PROTEIN,URINE DIPSTICK TRACE (NEGATIVE); URINE UROBILINOGEN 0.2 mg/dL (0.2 - 1)
[2021-12-31] MEDS ORDERED: SODIUM CHLORIDE 0.9% 1000ML 1,000 ML IV SCH (13:45)
[2021-12-31 13:48] LABS: BACTERIA,URINE MODERATE /HPF; EPITHELIAL CELLS,URINE FEW /LPF; RBC,URINE 0-5 /HPF (0-5); WBC,URINE (MAN) 0-5 /HPF (0-5)
[2021-12-31 14:03] LABS: BLAST CELLS % MANUAL 2; LYMPHOCYTES % (MANUAL) 56 % (19-48); MONOCYTES % (MANUAL) 37 % (3.4-9.0); MYELOCYTES % (MANUAL) 1 % (0-0); NEUTROPHILS % (MANUAL) 4 % (40-74); NUCLEATED RED BLOOD CELLS 1
[2021-12-31 14:04] LABS: PLATELET ESTIMATE MARKEDLY DECREASED; PLATELET MORPHOLOGY COMMENT NORMAL; RBC MORPHOLOGY COMMENT NORMAL
[2021-12-31] MEDS ORDERED: NOREPINEPHRINE 8 MG/D5W 250 ML 250 ML IV SCH (14:15)
[2021-12-31] MEDS ORDERED: Vancomycin IV 1 GM in SODIUM CHLORIDE 0.9% 250ML 250 ML IV ONE (16:30)
[2021-12-31] MEDS: LACTATED RINGER'S 1,000 ML INJ SCH ×2 (16:45→21:14)
[2021-12-31] MEDS ORDERED: METOCLOPRAMIDE HCL 10 MG/2ML VIAL IV PRN (17:30)
[2021-12-31] MEDS: ACETAMINOPHEN 1000 MG/100 ML IV SCH (18:20)
[2021-12-31] MEDS ORDERED: LACTATED RINGER'S 1,000 ML INJ ONE ×2 (19:35→20:15)
[2021-12-31 20:16] LABS: ANION GAP 13.3 mmol/L (8-16); CREATININE, SERUM 1.03 mg/dL (0.57-1.11); POTASSIUM 3.3 mmol/L (3.5-5.1)
[2021-12-31] MEDS ORDERED: SIMVASTATIN 40 MG TAB PO SCH (21:00)
[2021-12-31] MEDS ORDERED: POTASSIUM CHLORIDE 20 MEQ TAB CR PO STA (21:35)
[2021-12-31] MEDS ORDERED: SODIUM CHLORIDE 0.9% 250ML 250 ML ONE (23:20)
[2022-01-01] VITALS (49 sets, daily range): BP systolic 86–131; BP diastolic 47–65
[2022-01-01] MEDS ORDERED: DEXTROSE 5% 250ML 250 ML IV ONE (01:47)
[2022-01-01] MEDS: PHENYLEPHRINE 10MG/ML VIAL 40 MG in DEXTROSE 5% 250ML 246 ML IV SCH (02:15)
[2022-01-01] MEDS ORDERED: PHENYLEPHRINE HCL 1% 10 MG/ML VIAL ONE (02:20)
[2022-01-01] MEDS: ACETAMINOPHEN 1000 MG/100 ML IV SCH ×3 (06:00→17:55)
[2022-01-01 07:27] LABS: EOSINOPHILS % 2.1 % (0.0-6.0); HEMOGLOBIN 7.1 g/dL (12.0-16.0); LYMPHOCYTES # (AUTO) 0.4 (1.0-3.2); LYMPHOCYTES % 40.4 % (18.0-39.1); MEAN CORPUSCULAR HEMOGLOBIN 28.1 pg (28-32); MEAN CORPUSCULAR HGB CONC 31.4 g/dL (31-35); MEAN CORPUSCULAR VOLUME 89.3 fL (81-99); MONOCYTES # (AUTO) 0.2 (0.2-0.8); MONOCYTES % 20.2 % (4.4-11.3); NEUTROPHILS # (AUTO) 0.3 (2.1-6.9); PLATELET COUNT 54 x10e3/uL (140-360); RED BLOOD COUNT 2.53 x10e6/uL (3.6-5.1); RED CELL DISTRIBUTION WIDTH 16.9 % (11.7-14.4)
[2022-01-01 07:30] LABS: HEMATOCRIT 22.6 % (34.2-44.1)
[2022-01-01 07:57] LABS: ALBUMIN/GLOBULIN RATIO 0.5 (0.8-2.0); ANION GAP 13.9 mmol/L (8-16); CALCIUM 8.5 mg/dL (8.4-10.2); CREATININE, SERUM 0.85 mg/dL (0.57-1.11); POTASSIUM 3.9 mmol/L (3.5-5.1)
[2022-01-01] MEDS ORDERED: ONDANSETRON HCL INJ 2MG/ML 2ML 2 MG/ML VIAL IV PRN (08:45)
[2022-01-01] MEDS ORDERED: FILGRASTIM-AAFI 480 MCG/0.8 ML SYRINGE SQ ONE (09:00)
[2022-01-01] MEDS ORDERED: PANTOPRAZOLE SOD 40 MG TABEC PO SCH (09:00)
[2022-01-01] MEDS ORDERED: FUROSEMIDE INJ 10 MG/ML 2 ML VIAL IV ONE (09:00)
[2022-01-01] MEDS ORDERED: SODIUM CHLORIDE 0.9% 250ML 250 ML IV ONE (09:00)
[2022-01-01] MEDS: CITALOPRAM HYDROBROMIDE 20 MG TAB PO SCH (09:50)
[2022-01-01] MEDS: PREGABALIN 75 MG CAP PO SCH ×2 (09:50→17:00)
[2022-01-01 12:11] LABS: EOSINOPHILS % (MANUAL) 2 % (0-7); LYMPHOCYTES % (MANUAL) 58 % (19-48); MONOCYTES % (MANUAL) 22 % (3.4-9.0); NEUTROPHILS % (MANUAL) 18 % (40-74); PLATELET ESTIMATE MODERATELY DECREASED
[2022-01-01 12:12] LABS: PLATELET MORPHOLOGY COMMENT NORMAL; RBC MORPHOLOGY COMMENT NORMAL
[2022-01-01] MEDS: LACTATED RINGER'S 1,000 ML INJ SCH (13:51)
[2022-01-01] MEDS: Vancomycin IV 1 GM in SODIUM CHLORIDE 0.9% 250ML 250 ML IV SCH (18:22)
[2022-01-02] VITALS (54 sets, daily range): BP systolic 83–168; BP diastolic 32–128
[2022-01-02] MEDS: ACETAMINOPHEN 1000 MG/100 ML IV SCH (00:01)
[2022-01-02] MEDS: PHENYLEPHRINE 10MG/ML VIAL 40 MG in DEXTROSE 5% 250ML 246 ML IV SCH (05:08)
[2022-01-02 07:19] LABS: ALBUMIN 1.6 g/dL (3.5-5.0); ALBUMIN/GLOBULIN RATIO 0.5 (0.8-2.0); ANION GAP 11.4 mmol/L (8-16); CALCIUM 8.2 mg/dL (8.4-10.2); CREATININE, SERUM 0.65 mg/dL (0.57-1.11); POTASSIUM 3.4 mmol/L (3.5-5.1)
[2022-01-02 08:15] LABS: EOSINOPHILS % 3.8 % (0.0-6.0); HEMOGLOBIN 7.2 g/dL (12.0-16.0); LYMPHOCYTES # (AUTO) 0.4 (1.0-3.2); LYMPHOCYTES % 48.8 % (18.0-39.1); MEAN CORPUSCULAR HEMOGLOBIN 27.5 pg (28-32); MEAN CORPUSCULAR HGB CONC 31.6 g/dL (31-35); MONOCYTES # (AUTO) 0.1 (0.2-0.8); MONOCYTES % 13.8 % (4.4-11.3); NEUTROPHILS # (AUTO) 0.2 (2.1-6.9); NEUTROPHILS % 28.6 % (38.7-80.0); RED BLOOD COUNT 2.62 x10e6/uL (3.6-5.1); RED CELL DISTRIBUTION WIDTH 16.3 % (11.7-14.4)
[2022-01-02 08:19] LABS: HEMATOCRIT 22.8 % (34.2-44.1)
[2022-01-02 08:20] LABS: PLATELET COUNT 43 x10e3/uL (140-360)
[2022-01-02] MEDS: LACTATED RINGER'S 1,000 ML INJ SCH (08:20)
[2022-01-02] MEDS: PREGABALIN 75 MG CAP PO SCH ×2 (08:40→17:07)
[2022-01-02] MEDS: CITALOPRAM HYDROBROMIDE 20 MG TAB PO SCH (08:40)
[2022-01-02 09:14] LABS: BAND NEUTROPHILS % (MANUAL) 4 %; EOSINOPHILS % (MANUAL) 7 % (0-7); LYMPHOCYTES % (MANUAL) 53 % (19-48); MONOCYTES % (MANUAL) 14 % (3.4-9.0); MYELOCYTES % (MANUAL) 2 % (0-0); NEUTROPHILS % (MANUAL) 20 % (40-74)
[2022-01-02 09:15] LABS: PLATELET ESTIMATE MARKEDLY DECREASED; PLATELET MORPHOLOGY COMMENT NORMAL; RBC MORPHOLOGY COMMENT NORMAL
[2022-01-02] MEDS ORDERED: ACETAMINOPHEN 325 MG TAB PO PRN (13:30)
[2022-01-02] MEDS: MIDODRINE HCL 5 MG TABLET PO SCH ×2 (13:56→17:07)
[2022-01-02] MEDS ORDERED: FILGRASTIM-AAFI 480 MCG/0.8 ML SYRINGE SQ ONE (17:00)
[2022-01-02] MEDS: Vancomycin IV 1 GM in SODIUM CHLORIDE 0.9% 250ML 250 ML IV SCH (17:07)
[2022-01-02] MEDS: HYDROCODONE/APAP 10MG-325MG TAB PO PRN (17:25)
[2022-01-02] MEDS: TRAZODONE HCL 50 MG TAB PO PRN (21:31)
[2022-01-03] VITALS (71 sets, daily range): BP systolic 90–143; BP diastolic 48–85
[2022-01-03] MEDS: PHENYLEPHRINE 10MG/ML VIAL 40 MG in DEXTROSE 5% 250ML 246 ML IV SCH ×2 (01:33→21:13)
[2022-01-03] MEDS ORDERED: DEXTROSE 5% 250ML 250 ML IV ONE (01:37)
[2022-01-03] MEDS ORDERED: PHENYLEPHRINE HCL 1% 10 MG/ML VIAL ONE (01:39)
[2022-01-03] MEDS ORDERED: MAGNESIUM SULFATE 2GM/50ML 50 ML IV ONE (05:00)
[2022-01-03] MEDS: MIDODRINE HCL 5 MG TABLET PO SCH ×3 (08:25→18:35)
[2022-01-03] MEDS: CITALOPRAM HYDROBROMIDE 20 MG TAB PO SCH (08:26)
[2022-01-03] MEDS: PREGABALIN 75 MG CAP PO SCH ×2 (08:26→18:35)
[2022-01-03 09:57] LABS: ANION GAP 18.7 mmol/L (8-16); CALCIUM 8.2 mg/dL (8.4-10.2); CREATININE, SERUM 0.6 mg/dL (0.57-1.11); POTASSIUM 3.7 mmol/L (3.5-5.1)
[2022-01-03 10:14] LABS: EOSINOPHILS % 3.2 % (0.0-6.0); LYMPHOCYTES # (AUTO) 0.3 (1.0-3.2); LYMPHOCYTES % 53.2 % (18.0-39.1); MEAN CORPUSCULAR HEMOGLOBIN 28.1 pg (28-32); MEAN CORPUSCULAR HGB CONC 32.6 g/dL (31-35); MONOCYTES # (AUTO) 0.1 (0.2-0.8); MONOCYTES % 16.1 % (4.4-11.3); NEUTROPHILS # (AUTO) 0.2 (2.1-6.9); NEUTROPHILS % 27.5 % (38.7-80.0); RED BLOOD COUNT 2.21 x10e6/uL (3.6-5.1); RED CELL DISTRIBUTION WIDTH 15.9 % (11.7-14.4)
[2022-01-03 10:20] LABS: HEMOGLOBIN 6.2 g/dL (12.0-16.0)
[2022-01-03 10:21] LABS: PLATELET COUNT 29 x10e3/uL (140-360)
[2022-01-03 12:57] LABS: BAND NEUTROPHILS % (MANUAL) 2 %; EOSINOPHILS % (MANUAL) 6 % (0-7); LYMPHOCYTES % (MANUAL) 50 % (19-48); MONOCYTES % (MANUAL) 26 % (3.4-9.0); NEUTROPHILS % (MANUAL) 16 % (40-74); PLATELET ESTIMATE MARKEDLY DECREASED
[2022-01-03 12:58] LABS: PLATELET MORPHOLOGY COMMENT NORMAL; RBC MORPHOLOGY COMMENT NORMAL
[2022-01-03] MEDS ORDERED: SODIUM CHLORIDE 0.9% 250ML 250 ML IV ONE (14:30)
[2022-01-03] MEDS ORDERED: FILGRASTIM-AAFI 480 MCG/0.8 ML SYRINGE SQ ONE (14:35)
[2022-01-03] MEDS: Vancomycin IV 1 GM in SODIUM CHLORIDE 0.9% 250ML 250 ML IV SCH (18:35)
[2022-01-03] MEDS: TRAZODONE HCL 50 MG TAB PO PRN (21:12)
[2022-01-04] VITALS (25 sets, daily range): BP systolic 92–157; BP diastolic 48–98
[2022-01-04 06:41] LABS: EOSINOPHILS % 2.7 % (0.0-6.0); HEMOGLOBIN 7.4 g/dL (12.0-16.0); LYMPHOCYTES # (AUTO) 0.4 (1.0-3.2); LYMPHOCYTES % 55.4 % (18.0-39.1); MEAN CORPUSCULAR HEMOGLOBIN 28.6 pg (28-32); MEAN CORPUSCULAR HGB CONC 34.4 g/dL (31-35); MONOCYTES # (AUTO) 0.2 (0.2-0.8); NEUTROPHILS # (AUTO) 0.1 (2.1-6.9); NEUTROPHILS % 18.9 % (38.7-80.0); RED BLOOD COUNT 2.59 x10e6/uL (3.6-5.1); RED CELL DISTRIBUTION WIDTH 15.4 % (11.7-14.4)
[2022-01-04 06:49] LABS: HEMATOCRIT 21.5 % (34.2-44.1)
[2022-01-04 06:50] LABS: PLATELET COUNT 16 x10e3/uL (140-360)
[2022-01-04] MEDS: CITALOPRAM HYDROBROMIDE 20 MG TAB PO SCH (08:26)
[2022-01-04] MEDS: MIDODRINE HCL 5 MG TABLET PO SCH ×3 (08:26→15:01)
[2022-01-04] MEDS: PREGABALIN 75 MG CAP PO SCH ×2 (08:27→17:35)
[2022-01-04 11:27] LABS: BAND NEUTROPHILS % (MANUAL) 6 %; LYMPHOCYTES % (MANUAL) 69 % (19-48); METAMYELOCYTES % (MANUAL) 2 % (0-0); MONOCYTES % (MANUAL) 10 % (3.4-9.0); MYELOCYTES % (MANUAL) 2 % (0-0); NEUTROPHILS % (MANUAL) 10 % (40-74); NUCLEATED RED BLOOD CELLS 1
[2022-01-04] MEDS ORDERED: FILGRASTIM-AAFI 480 MCG/0.8 ML SYRINGE SQ ONE (11:30)
[2022-01-04 11:34] LABS: PLATELET ESTIMATE MARKEDLY DECREASED; PLATELET MORPHOLOGY COMMENT NORMAL
[2022-01-04 11:35] LABS: SCHISTOCYTES FEW
[2022-01-04] MEDS: HYDROCODONE/APAP 10MG-325MG TAB PO PRN (13:33)
[2022-01-04] MEDS: Vancomycin IV 1 GM in SODIUM CHLORIDE 0.9% 250ML 250 ML IV SCH (14:47)
[2022-01-04] MEDS ORDERED: HYDROCODONE/APAP 5MG-325MG TAB PO PRN (17:15)
[2022-01-04] MEDS: TRAZODONE HCL 50 MG TAB PO PRN (21:20)
[2022-01-04] MEDS: PHENYLEPHRINE 10MG/ML VIAL 40 MG in DEXTROSE 5% 250ML 246 ML IV SCH (21:45)
[2022-01-05] VITALS (21 sets, daily range): BP systolic 94–131; BP diastolic 46–77
[2022-01-05] MEDS: Vancomycin IV 1 GM in SODIUM CHLORIDE 0.9% 250ML 250 ML IV SCH ×2 (01:27→13:14)
[2022-01-05 06:36] LABS: EOSINOPHILS % 3.6 % (0.0-6.0); HEMATOCRIT 23.1 % (34.2-44.1); HEMOGLOBIN 7.6 g/dL (12.0-16.0); LYMPHOCYTES # (AUTO) 0.7 (1.0-3.2); LYMPHOCYTES % 60.9 % (18.0-39.1); MEAN CORPUSCULAR HEMOGLOBIN 28.4 pg (28-32); MEAN CORPUSCULAR HGB CONC 32.9 g/dL (31-35); MEAN CORPUSCULAR VOLUME 86.2 fL (81-99); MONOCYTES # (AUTO) 0.2 (0.2-0.8); MONOCYTES % 18.2 % (4.4-11.3); NEUTROPHILS # (AUTO) 0.2 (2.1-6.9); NEUTROPHILS % 17.3 % (38.7-80.0); RED BLOOD COUNT 2.68 x10e6/uL (3.6-5.1); RED CELL DISTRIBUTION WIDTH 15.5 % (11.7-14.4)
[2022-01-05 06:45] LABS: PLATELET COUNT 11 x10e3/uL (140-360)
[2022-01-05] MEDS: CITALOPRAM HYDROBROMIDE 20 MG TAB PO SCH (09:03)
[2022-01-05] MEDS: PREGABALIN 75 MG CAP PO SCH ×2 (09:03→15:59)
[2022-01-05] MEDS: MIDODRINE HCL 5 MG TABLET PO SCH ×3 (09:07→15:59)
[2022-01-05 11:00] LABS: BAND NEUTROPHILS % (MANUAL) 5 %; EOSINOPHILS % (MANUAL) 3 % (0-7); LYMPHOCYTES % (MANUAL) 70 % (19-48); MONOCYTES % (MANUAL) 18 % (3.4-9.0); MYELOCYTES % (MANUAL) 1 % (0-0); NEUTROPHILS % (MANUAL) 3 % (40-74)
[2022-01-05 11:01] LABS: PLATELET ESTIMATE MARKEDLY DECREASED; PLATELET MORPHOLOGY COMMENT NORMAL; RBC MORPHOLOGY COMMENT NORMAL
[2022-01-05] MEDS ORDERED: FILGRASTIM 300 MCG/ML VIAL SC ONE (19:20)
[2022-01-05] MEDS: TRAZODONE HCL 50 MG TAB PO PRN (20:48)
[2022-01-05] MEDS: PHENYLEPHRINE 10MG/ML VIAL 40 MG in DEXTROSE 5% 250ML 246 ML IV SCH (21:45)
[2022-01-05] MEDS ORDERED: SODIUM CHLORIDE 0.9% 250ML 250 ML ONE (22:02)
[2022-01-06] VITALS (15 sets, daily range): BP systolic 96–118; BP diastolic 38–79
[2022-01-06 05:04] LABS: EOSINOPHILS # (AUTO) 0.1 (0.0-0.4); EOSINOPHILS % 4.1 % (0.0-6.0); HEMATOCRIT 23.5 % (34.2-44.1); HEMOGLOBIN 7.5 g/dL (12.0-16.0); LYMPHOCYTES # (AUTO) 0.8 (1.0-3.2); LYMPHOCYTES % 63.9 % (18.0-39.1); MEAN CORPUSCULAR HEMOGLOBIN 28.1 pg (28-32); MEAN CORPUSCULAR HGB CONC 31.9 g/dL (31-35); MONOCYTES # (AUTO) 0.2 (0.2-0.8); MONOCYTES % 16.4 % (4.4-11.3); NEUTROPHILS # (AUTO) 0.2 (2.1-6.9); NEUTROPHILS % 15.6 % (38.7-80.0); RED BLOOD COUNT 2.67 x10e6/uL (3.6-5.1); RED CELL DISTRIBUTION WIDTH 15.5 % (11.7-14.4)
[2022-01-06 05:35] LABS: PLATELET COUNT 33 x10e3/uL (140-360)
[2022-01-06] MEDS: MIDODRINE HCL 5 MG TABLET PO SCH ×3 (08:52→16:03)
[2022-01-06] MEDS: CITALOPRAM HYDROBROMIDE 20 MG TAB PO SCH (08:52)
[2022-01-06] MEDS: PREGABALIN 75 MG CAP PO SCH ×2 (08:52→16:03)
[2022-01-06 10:33] LABS: BAND NEUTROPHILS % (MANUAL) 1 %; EOSINOPHILS % (MANUAL) 5 % (0-7); LYMPHOCYTES % (MANUAL) 59 % (19-48); MONOCYTES % (MANUAL) 18 % (3.4-9.0); NEUTROPHILS % (MANUAL) 17 % (40-74); PLATELET ESTIMATE MARKEDLY DECREASED; PLATELET MORPHOLOGY COMMENT NORMAL; RBC MORPHOLOGY COMMENT NORMAL
[2022-01-06] MEDS ORDERED: SODIUM CHLORIDE 0.9% 250ML 250 ML ONE (15:33)
[2022-01-06] MEDS: TRAZODONE HCL 50 MG TAB PO PRN (20:38)
[2022-01-07] VITALS (8 sets, daily range): BP systolic 87–100; BP diastolic 47–68
[2022-01-07 06:02] LABS: EOSINOPHILS % 1.4 % (0.0-6.0); HEMOGLOBIN 7.6 g/dL (12.0-16.0); LYMPHOCYTES % 70.1 % (18.0-39.1); MEAN CORPUSCULAR HEMOGLOBIN 28.6 pg (28-32); MEAN CORPUSCULAR HGB CONC 33.3 g/dL (31-35); MEAN CORPUSCULAR VOLUME 85.7 fL (81-99); MONOCYTES # (AUTO) 0.1 (0.2-0.8); MONOCYTES % 9.7 % (4.4-11.3); NEUTROPHILS # (AUTO) 0.3 (2.1-6.9); NEUTROPHILS % 18.1 % (38.7-80.0); RED BLOOD COUNT 2.66 x10e6/uL (3.6-5.1); RED CELL DISTRIBUTION WIDTH 15.5 % (11.7-14.4)
[2022-01-07 06:14] LABS: HEMATOCRIT 22.8 % (34.2-44.1); PLATELET COUNT 22 x10e3/uL (140-360)
[2022-01-07] MEDS: MIDODRINE HCL 5 MG TABLET PO SCH ×3 (09:21→16:55)
[2022-01-07] MEDS: CITALOPRAM HYDROBROMIDE 20 MG TAB PO SCH (09:23)
[2022-01-07] MEDS: PREGABALIN 75 MG CAP PO SCH ×2 (09:23→16:55)
[2022-01-07 09:55] LABS: EOSINOPHILS % (MANUAL) 1 % (0-7); LYMPHOCYTES % (MANUAL) 86 % (19-48); METAMYELOCYTES % (MANUAL) 2 % (0-0); MONOCYTES % (MANUAL) 6 % (3.4-9.0); NEUTROPHILS % (MANUAL) 5 % (40-74)
[2022-01-07 09:56] LABS: ANISOCYTOSIS SLIGHT; PLATELET ESTIMATE MARKEDLY DECREASED; PLATELET MORPHOLOGY COMMENT NORMAL; RBC MORPHOLOGY COMMENT NORMAL
[2022-01-07] MEDS ORDERED: ONDANSETRON HCL 4 MG ORAL DISINTEGRATING TAB PO PRN (11:15)
[2022-01-07] MEDS: PANTOPRAZOLE SOD 40 MG TABEC PO SCH (16:55)
[2022-01-07] MEDS: TRAZODONE HCL 50 MG TAB PO PRN (21:10)
[2022-01-08] VITALS (8 sets, daily range): BP systolic 91–102; BP diastolic 40–53
[2022-01-08 05:02] LABS: EOSINOPHILS % 2.4 % (0.0-6.0); HEMATOCRIT 22.4 % (34.2-44.1); HEMOGLOBIN 7.1 g/dL (12.0-16.0); LYMPHOCYTES # (AUTO) 0.9 (1.0-3.2); LYMPHOCYTES % 74.6 % (18.0-39.1); MEAN CORPUSCULAR HEMOGLOBIN 28.3 pg (28-32); MEAN CORPUSCULAR HGB CONC 31.7 g/dL (31-35); MEAN CORPUSCULAR VOLUME 89.2 fL (81-99); MONOCYTES # (AUTO) 0.1 (0.2-0.8); MONOCYTES % 8.7 % (4.4-11.3); NEUTROPHILS # (AUTO) 0.2 (2.1-6.9); NEUTROPHILS % 11.9 % (38.7-80.0); RED BLOOD COUNT 2.51 x10e6/uL (3.6-5.1); RED CELL DISTRIBUTION WIDTH 15.3 % (11.7-14.4)
[2022-01-08 05:05] LABS: PLATELET COUNT 15 x10e3/uL (140-360)
[2022-01-08 05:18] LABS: ALBUMIN 2.2 g/dL (3.5-5.0); ALBUMIN/GLOBULIN RATIO 0.6 (0.8-2.0); CALCIUM 8.8 mg/dL (8.4-10.2); CREATININE, SERUM 0.63 mg/dL (0.57-1.11)
[2022-01-08 05:56] LABS: ANISOCYTOSIS SLIGHT; LYMPHOCYTES % (MANUAL) 79 % (19-48); MONOCYTES % (MANUAL) 9 % (3.4-9.0); NEUTROPHILS % (MANUAL) 7 % (40-74); OVALOCYTES FEW; PLATELET ESTIMATE MARKEDLY DECREASED; PLATELET MORPHOLOGY COMMENT NORMAL; RBC MORPHOLOGY COMMENT NORMAL
[2022-01-08] MEDS: CITALOPRAM HYDROBROMIDE 20 MG TAB PO SCH (09:03)
[2022-01-08] MEDS: PREGABALIN 75 MG CAP PO SCH ×2 (09:03→15:51)
[2022-01-08] MEDS: PANTOPRAZOLE SOD 40 MG TABEC PO SCH ×2 (09:03→15:51)
[2022-01-08] MEDS: MIDODRINE HCL 5 MG TABLET PO SCH ×3 (09:03→15:52)
[2022-01-08] MEDS ORDERED: SODIUM CHLORIDE 0.9% 250ML 250 ML IV NR (18:30)
[2022-01-08] MEDS: FILGRASTIM-AAFI 480 MCG/0.8 ML SYRINGE SQ SCH (19:53)
[2022-01-08] MEDS: TRAZODONE HCL 50 MG TAB PO PRN (21:26)
[2022-01-08] MEDS ORDERED: SODIUM CHLORIDE 0.9% 250ML 250 ML ONE (22:06)
[2022-01-09] MEDS ORDERED: SODIUM CHLORIDE 0.9% 250ML 250 ML ONE (01:33)
[2022-01-09 04:00] VITALS: BP 93/52
[2022-01-09 05:55] LABS: EOSINOPHILS % 2.2 % (0.0-6.0); HEMATOCRIT 24.5 % (34.2-44.1); HEMOGLOBIN 7.8 g/dL (12.0-16.0); LYMPHOCYTES # (AUTO) 0.8 (1.0-3.2); LYMPHOCYTES % 58.2 % (18.0-39.1); MEAN CORPUSCULAR HEMOGLOBIN 27.7 pg (28-32); MEAN CORPUSCULAR HGB CONC 31.8 g/dL (31-35); MEAN CORPUSCULAR VOLUME 86.9 fL (81-99); MONOCYTES # (AUTO) 0.1 (0.2-0.8); MONOCYTES % 7.5 % (4.4-11.3); NEUTROPHILS # (AUTO) 0.4 (2.1-6.9); NEUTROPHILS % 32.1 % (38.7-80.0); RED BLOOD COUNT 2.82 x10e6/uL (3.6-5.1); RED CELL DISTRIBUTION WIDTH 16.1 % (11.7-14.4)
[2022-01-09 06:00] LABS: PLATELET COUNT 47 x10e3/uL (140-360)
[2022-01-09 06:15] LABS: ALBUMIN 2.3 g/dL (3.5-5.0); ALBUMIN/GLOBULIN RATIO 0.6 (0.8-2.0); CALCIUM 9.1 mg/dL (8.4-10.2); CREATININE, SERUM 0.67 mg/dL (0.57-1.11)
[2022-01-09 08:03] LABS: BAND NEUTROPHILS % (MANUAL) 1 %; BLAST CELLS % MANUAL 1; EOSINOPHILS % (MANUAL) 2 % (0-7); LYMPHOCYTES % (MANUAL) 64 % (19-48); MONOCYTES % (MANUAL) 15 % (3.4-9.0); NEUTROPHILS % (MANUAL) 16 % (40-74); PLATELET ESTIMATE MODERATELY DECREASED; PLATELET MORPHOLOGY COMMENT NORMAL; RBC MORPHOLOGY COMMENT NORMAL
[2022-01-09 08:07] VITALS: BP 103/52
[2022-01-09] MEDS ORDERED: CEFTRIAXONE 2 GM in SODIUM CHLORIDE 0.9% 100 ML IV SCH (09:00)
[2022-01-09] MEDS: PANTOPRAZOLE SOD 40 MG TABEC PO SCH (09:01)
[2022-01-09] MEDS: PREGABALIN 75 MG CAP PO SCH (09:01)
[2022-01-09] MEDS: CITALOPRAM HYDROBROMIDE 20 MG TAB PO SCH (09:02)
[2022-01-09] MEDS: MIDODRINE HCL 5 MG TABLET PO SCH (09:02)
[2022-01-09] MEDS: FILGRASTIM-AAFI 480 MCG/0.8 ML SYRINGE SQ SCH (09:02)
[2022-01-09 09:04] VITALS: BP 103/52
[2022-01-09] MEDS ORDERED: HEPARIN SOD (PORCINE) 5,000 UNIT/ML VIAL IV ONE (10:15)
[2022-01-09] MEDS ORDERED: HEPARIN 500 UNITS/5ML MDV INJ ONE (10:45)
== END 2022-01-09 12:08 | disposition home or self-care (01) | DRG 871 ==
LOC: ER 12:20 → ERHOLD 13:39 → ICU 22:16 → OBSVTOIN 01-01 08:06 → MED/SURG 01-06 09:50
PROVIDERS: ADMIT Internal Medicine; ATTEND Internal Medicine
PROC: 02HV33Z Insertion of Infusion Device into Superior Vena Cava, Percutaneous Approach (ICD-10-PCS; principal; 2021-12-31)
PROC: 3E043XZ Introduction of Vasopressor into Central Vein, Percutaneous Approach (ICD-10-PCS; 2021-12-31)
PROC: 30243R1 Transfusion of Nonautologous Platelets into Central Vein, Percutaneous Approach (ICD-10-PCS; 2021-12-31)
PROC: 30243N1 Transfusion of Nonautologous Red Blood Cells into Central Vein, Percutaneous Approach (ICD-10-PCS; 2022-01-01)
DX: A41.9 Sepsis, unspecified organism (principal); D61.1 Drug-induced aplastic anemia; J69.0 Pneumonitis due to inhalation of food and vomit; C92.00 Acute myeloblastic leukemia, not having achieved remission; D61.818 Other pancytopenia; E87.2 Acidosis; N17.9 Acute kidney failure, unspecified; D46.C Myelodysplastic syndrome with isolated del(5q) chromosomal abnormality; K21.9 Gastro-esophageal reflux disease without esophagitis; E78.5 Hyperlipidemia, unspecified; Z96.652 Presence of left artificial knee joint; Z95.828 Presence of other vascular implants and grafts; E86.0 Dehydration; D69.6 Thrombocytopenia, unspecified; F41.9 Anxiety disorder, unspecified; J44.9 Chronic obstructive pulmonary disease, unspecified; Z82.49 Family history of ischemic heart disease and other diseases of the circulatory system; G47.00 Insomnia, unspecified; E03.9 Hypothyroidism, unspecified; T45.1X5A Adverse effect of antineoplastic and immunosuppressive drugs, initial encounter; D70.9 Neutropenia, unspecified; F17.200 Nicotine dependence, unspecified, uncomplicated; R50.81 Fever presenting with conditions classified elsewhere; R07.9 Chest pain, unspecified
CPT/HCPCS: 36415; 36569; 51700; 71045; 71046; 71250; 74176; 80048; 80053; 80202; 81001; 83605; 83735; 84484; 85025; 85610; 85730; 86850; 86900; 86920; 87040; 87086; 93005; 93306; 94799; 99251; 99285; G0378; J0696; J1442; J1940; J2185; J2370; J2405; J3370; J3475; J7030; J7050; J7070; J7121; P9016; P9034

== ENCOUNTER 2022-01-15 11:55 | Observation (INO) | payer MEDICARE ==
[~2022-01-15] VITALS: Ht 170.2 cm; Wt 51.7 kg
[2022-01-15] MEDS ORDERED: SODIUM CHLORIDE 0.9% 1000ML 1,000 ML IV ONE (12:30)
[2022-01-15] MEDS ORDERED: SODIUM CHLORIDE 0.9% 250ML 250 ML IV ONE (12:30)
[2022-01-15 12:58] LABS: LYMPHOCYTES # (AUTO) 0.5 (1.0-3.2); LYMPHOCYTES % 46.1 % (18.0-39.1); MEAN CORPUSCULAR HEMOGLOBIN 27.6 pg (28-32); MEAN CORPUSCULAR HGB CONC 30.9 g/dL (31-35); MEAN CORPUSCULAR VOLUME 89.2 fL (81-99); MONOCYTES # (AUTO) 0.1 (0.2-0.8); MONOCYTES % 13.7 % (4.4-11.3); NEUTROPHILS # (AUTO) 0.4 (2.1-6.9); NEUTROPHILS % 38.2 % (38.7-80.0); RED CELL DISTRIBUTION WIDTH 15.2 % (11.7-14.4)
[2022-01-15 13:03] LABS: HEMATOCRIT 22.3 % (34.2-44.1); HEMOGLOBIN 6.9 g/dL (12.0-16.0); PLATELET COUNT 9 x10e3/uL (140-360)
[2022-01-15 13:04] LABS: INR 1.21; PROTHROMBIN TIME 16.4 seconds (11.9-14.5)
[2022-01-15 13:05] LABS: PARTIAL THROMBOPLASTIN TIME 41.1 seconds (23.8-35.5)
[2022-01-15 13:14] LABS: ALANINE AMINOTRANSFERASE 58 IU/L (0-55); ALBUMIN 2.3 g/dL (3.5-5.0); ALBUMIN/GLOBULIN RATIO 0.5 (0.8-2.0); ALKALINE PHOSPHATASE 122 IU/L (40-150); ANION GAP 11.9 mmol/L (8-16); BLOOD UREA NITROGEN 24 mg/dL (7-26); BUN/CREATININE RATIO 30 (6-25); CALCIUM 9.5 mg/dL (8.4-10.2); CARBON DIOXIDE 24 mmol/L (22-29); CHLORIDE 102 mmol/L (98-107); GLUCOSE 109 mg/dL (74-118); POTASSIUM 3.9 mmol/L (3.5-5.1); SODIUM 134 mmol/L (136-145)
[2022-01-15] MEDS ORDERED: Vancomycin IV 1 GM in SODIUM CHLORIDE 0.9% 250ML 250 ML IV ONE (14:45)
[2022-01-15] MEDS: CEFEPIME 2 GM in SODIUM CHLORIDE 0.9% 100 ML IV SCH ×2 (14:45→21:04)
[2022-01-15 14:50] LABS: LYMPHOCYTES % (MANUAL) 34 % (19-48); MONOCYTES % (MANUAL) 32 % (3.4-9.0); NEUTROPHILS % (MANUAL) 34 % (40-74); NUCLEATED RED BLOOD CELLS 1
[2022-01-15 14:51] LABS: HYPOCHROMASIA MODERATE; PLATELET ESTIMATE MARKEDLY DECREASED; PLATELET MORPHOLOGY COMMENT NORMAL; RBC MORPHOLOGY COMMENT NORMAL
[2022-01-15] MEDS ORDERED: SODIUM CHLORIDE 0.9% 250ML 250 ML ONE ×2 (16:55→23:48)
[2022-01-15 17:02] VITALS: BP 102/53
[2022-01-15 19:49] VITALS: BP 102/53
[2022-01-15 20:00] VITALS: BP 103/74
[2022-01-15] MEDS ORDERED: SODIUM CHLORIDE 0.9% 1000ML 1,000 ML ONE (20:43)
[2022-01-15] MEDS ORDERED: ACETAMINOPHEN 325 MG TAB PO PRN (23:30)
[2022-01-16] VITALS: BP 103/51
[2022-01-16 04:00] VITALS: BP 111/53
[2022-01-16] MEDS ORDERED: SODIUM CHLORIDE 0.9% 250ML 250 ML ONE ×2 (04:24→05:45)
[2022-01-16 07:36] VITALS: BP 90/45
[2022-01-16 08:20] VITALS: BP 90/45
[2022-01-16 08:59] LABS: HEMOGLOBIN 9.5 g/dL (12.0-16.0); LYMPHOCYTES # (AUTO) 0.5 (1.0-3.2); LYMPHOCYTES % 45.5 % (18.0-39.1); MEAN CORPUSCULAR HEMOGLOBIN 27.7 pg (28-32); MEAN CORPUSCULAR HGB CONC 32.8 g/dL (31-35); MEAN CORPUSCULAR VOLUME 84.5 fL (81-99); MONOCYTES # (AUTO) 0.1 (0.2-0.8); MONOCYTES % 13.1 % (4.4-11.3); NEUTROPHILS # (AUTO) 0.3 (2.1-6.9); NEUTROPHILS % 33.3 % (38.7-80.0); PLATELET COUNT 63 x10e3/uL (140-360); RED BLOOD COUNT 3.43 x10e6/uL (3.6-5.1); RED CELL DISTRIBUTION WIDTH 14.8 % (11.7-14.4)
[2022-01-16 09:17] LABS: ALBUMIN 2.2 g/dL (3.5-5.0); ALBUMIN/GLOBULIN RATIO 0.6 (0.8-2.0); ANION GAP 12.6 mmol/L (8-16); CALCIUM 9.2 mg/dL (8.4-10.2); CREATININE, SERUM 0.67 mg/dL (0.57-1.11); POTASSIUM 3.6 mmol/L (3.5-5.1)
[2022-01-16] MEDS: PANTOPRAZOLE SOD 40 MG TABEC PO SCH ×2 (10:00→17:27)
[2022-01-16] MEDS: LIOTHYRONINE SODIUM 5 MCG TAB PO SCH (10:00)
[2022-01-16] MEDS: CITALOPRAM HYDROBROMIDE 20 MG TAB PO SCH (10:00)
[2022-01-16] MEDS: LACTOBACILLUS ACIDOPHILUS CAPSULE PO SCH (10:00)
[2022-01-16] MEDS: CEFEPIME 2 GM in SODIUM CHLORIDE 0.9% 100 ML IV SCH ×2 (10:00→21:14)
[2022-01-16] MEDS: PREGABALIN 75 MG CAP PO SCH ×2 (10:00→17:27)
[2022-01-16 10:45] LABS: BAND NEUTROPHILS % (MANUAL) 3 %; EOSINOPHILS % (MANUAL) 1 % (0-7); LYMPHOCYTES % (MANUAL) 54 % (19-48); MONOCYTES % (MANUAL) 12 % (3.4-9.0); NEUTROPHILS % (MANUAL) 30 % (40-74)
[2022-01-16 10:50] LABS: OVALOCYTES FEW; PLATELET ESTIMATE MODERATELY DECREASED; PLATELET MORPHOLOGY COMMENT NORMAL
[2022-01-16 10:51] LABS: RBC MORPHOLOGY COMMENT NORMAL
[2022-01-16 10:52] LABS: HYPOCHROMASIA SLIGHT
[2022-01-16 11:33] VITALS: BP 102/72
[2022-01-16 19:53] VITALS: BP 110/58
[2022-01-16] MEDS ORDERED: SIMVASTATIN 80 MG TAB PO SCH (21:00)
[2022-01-16] MEDS ORDERED: TRAZODONE HCL 50 MG TAB PO SCH (21:00)
[2022-01-17] VITALS: BP 111/52
[2022-01-17 04:00] VITALS: BP 94/54
[2022-01-17 07:58] VITALS: BP 98/54
[2022-01-17] MEDS: PANTOPRAZOLE SOD 40 MG TABEC PO SCH (08:22)
[2022-01-17] MEDS: CEFEPIME 2 GM in SODIUM CHLORIDE 0.9% 100 ML IV SCH (08:22)
[2022-01-17] MEDS: PREGABALIN 75 MG CAP PO SCH (08:22)
[2022-01-17] MEDS: LACTOBACILLUS ACIDOPHILUS CAPSULE PO SCH (08:22)
[2022-01-17] MEDS: CITALOPRAM HYDROBROMIDE 20 MG TAB PO SCH (08:22)
[2022-01-17] MEDS: LIOTHYRONINE SODIUM 5 MCG TAB PO SCH (08:22)
[2022-01-17 11:21] VITALS: BP 99/59
[2022-01-17 11:42] VITALS: BP 99/59
== END 2022-01-17 13:49 | disposition home or self-care (01) ==
LOC: ER 12:17 → INTOOBSV 12:22 → ERHOLD 12:22 → MED/SURG2 15:45
PROVIDERS: ADMIT Internal Medicine; ATTEND Internal Medicine
DX: D61.818 Other pancytopenia (principal); D46.9 Myelodysplastic syndrome, unspecified; D63.8 Anemia in other chronic diseases classified elsewhere; K21.9 Gastro-esophageal reflux disease without esophagitis; E78.5 Hyperlipidemia, unspecified; E03.9 Hypothyroidism, unspecified; E78.00 Pure hypercholesterolemia, unspecified; F41.9 Anxiety disorder, unspecified; Z82.49 Family history of ischemic heart disease and other diseases of the circulatory system; Z87.891 Personal history of nicotine dependence; E44.0 Moderate protein-calorie malnutrition; Z68.1 Body mass index [BMI] 19.9 or less, adult; Z20.822 Contact with and (suspected) exposure to COVID-19
CPT/HCPCS: 0223U; 36415 ×2; 36430; 80053 ×2; 84484; 85025 ×2; 85610; 85730; 86850; 86900; 86920; 87040; 87071; 87186; 87205; 93005; 99284; G0378 ×3; J0692 ×3; J7030; J7050 ×6; P9016; P9034; S0164 ×2

== ENCOUNTER 2022-01-28 17:36 | Observation (INO) | payer MEDICARE ==
[~2022-01-28] VITALS: Ht 170.2 cm; Wt 51.7 kg
[2022-01-28 18:04] LABS: EOSINOPHILS # (AUTO) 0.1 (0.0-0.4); EOSINOPHILS % 3.5 % (0.0-6.0); HEMATOCRIT 24.1 % (34.2-44.1); HEMOGLOBIN 7.7 g/dL (12.0-16.0); LYMPHOCYTES # (AUTO) 0.8 (1.0-3.2); LYMPHOCYTES % 55.6 % (18.0-39.1); MEAN CORPUSCULAR HEMOGLOBIN 27.8 pg (28-32); MONOCYTES # (AUTO) 0.4 (0.2-0.8); MONOCYTES % 24.6 % (4.4-11.3); NEUTROPHILS # (AUTO) 0.2 (2.1-6.9); NEUTROPHILS % 13.5 % (38.7-80.0); RED BLOOD COUNT 2.77 x10e6/uL (3.6-5.1); RED CELL DISTRIBUTION WIDTH 14.6 % (11.7-14.4)
[2022-01-28 18:08] LABS: PLATELET COUNT 6 x10e3/uL (140-360)
[2022-01-28 18:23] LABS: ALBUMIN 2.5 g/dL (3.5-5.0); ALBUMIN/GLOBULIN RATIO 0.6 (0.8-2.0); ANION GAP 15.5 mmol/L (8-16); CALCIUM 9.2 mg/dL (8.4-10.2); CREATININE, SERUM 0.76 mg/dL (0.57-1.11); POTASSIUM 4.5 mmol/L (3.5-5.1)
[2022-01-28 21:02] LABS: BLAST CELLS % MANUAL 2; LYMPHOCYTES % (MANUAL) 64 % (19-48); METAMYELOCYTES % (MANUAL) 2 % (0-0); MONOCYTES % (MANUAL) 20 % (3.4-9.0); NEUTROPHILS % (MANUAL) 8 % (40-74); PLATELET ESTIMATE MARKEDLY DECREASED; PLATELET MORPHOLOGY COMMENT NORMAL
[2022-01-28 21:03] LABS: HYPOCHROMASIA SLIGHT; RBC MORPHOLOGY COMMENT NORMAL
[2022-01-28 21:51] VITALS: BP 106/56
[2022-01-28 21:58] VITALS: BP 106/56
[2022-01-28] MEDS ORDERED: SODIUM CHLORIDE 0.9% 250ML 250 ML ONE (23:21)
[2022-01-28 23:39] VITALS: BP 103/52
[2022-01-29 04:00] VITALS: BP 105/53
[2022-01-29 04:59] LABS: BASOPHILS % 0.8 % (0.0-1.0); EOSINOPHILS # (AUTO) 0.1 (0.0-0.4); EOSINOPHILS % 4.8 % (0.0-6.0); HEMATOCRIT 23.2 % (34.2-44.1); HEMOGLOBIN 7.6 g/dL (12.0-16.0); LYMPHOCYTES # (AUTO) 0.8 (1.0-3.2); LYMPHOCYTES % 61.3 % (18.0-39.1); MEAN CORPUSCULAR HEMOGLOBIN 27.7 pg (28-32); MEAN CORPUSCULAR HGB CONC 32.8 g/dL (31-35); MEAN CORPUSCULAR VOLUME 84.7 fL (81-99); MONOCYTES # (AUTO) 0.2 (0.2-0.8); MONOCYTES % 15.3 % (4.4-11.3); NEUTROPHILS # (AUTO) 0.2 (2.1-6.9); NEUTROPHILS % 17.8 % (38.7-80.0); PLATELET COUNT 83 x10e3/uL (140-360); RED BLOOD COUNT 2.74 x10e6/uL (3.6-5.1); RED CELL DISTRIBUTION WIDTH 14.6 % (11.7-14.4)
[2022-01-29 05:19] LABS: ALBUMIN 2.5 g/dL (3.5-5.0); ALBUMIN/GLOBULIN RATIO 0.6 (0.8-2.0); ANION GAP 17.1 mmol/L (8-16); CALCIUM 9.5 mg/dL (8.4-10.2); CREATININE, SERUM 0.66 mg/dL (0.57-1.11); POTASSIUM 4.1 mmol/L (3.5-5.1)
[2022-01-29] MEDS ORDERED: SODIUM CHLORIDE 0.9% 250ML 250 ML IV ONE (05:50)
[2022-01-29] MEDS ORDERED: LIOTHYRONINE SODIUM 5 MCG TAB PO SCH (06:00)
[2022-01-29 06:57] LABS: EOSINOPHILS % (MANUAL) 3 % (0-7); LYMPHOCYTES % (MANUAL) 65 % (19-48); MONOCYTES % (MANUAL) 20 % (3.4-9.0); NEUTROPHILS % (MANUAL) 12 % (40-74)
[2022-01-29 07:04] LABS: PLATELET ESTIMATE MODERATELY DECREASED; PLATELET MORPHOLOGY COMMENT NORMAL
[2022-01-29 07:10] LABS: RBC MORPHOLOGY COMMENT NORMAL
[2022-01-29 07:38] VITALS: BP 124/58
[2022-01-29] MEDS ORDERED: PREGABALIN 75 MG CAP PO SCH (09:00)
[2022-01-29] MEDS ORDERED: LACTOBACILLUS ACIDOPHILUS CAPSULE PO SCH (09:00)
[2022-01-29] MEDS ORDERED: CITALOPRAM HYDROBROMIDE 20 MG TAB PO SCH (09:00)
[2022-01-29] MEDS ORDERED: PANTOPRAZOLE SOD 40 MG TABEC PO SCH (09:00)
[2022-01-29 09:33] VITALS: BP 124/58
[2022-01-29 11:34] VITALS: BP 107/57
[2022-01-29] MEDS ORDERED: SODIUM CHLORIDE 0.9% 250ML 250 ML ONE (13:45)
[2022-01-29 15:22] VITALS: BP 113/55
[2022-01-29] MEDS ORDERED: TRAZODONE HCL 50 MG TAB PO SCH (21:00)
[2022-01-29] MEDS ORDERED: SIMVASTATIN 80 MG TAB PO SCH (21:00)
== END 2022-01-29 17:30 | disposition home or self-care (01) ==
LOC: ER 17:44 → ERHOLD 17:56 → MED/SURG2 21:31
PROVIDERS: ADMIT Internal Medicine; ATTEND Internal Medicine
DX: D46.9 Myelodysplastic syndrome, unspecified (principal); D61.818 Other pancytopenia; F41.9 Anxiety disorder, unspecified; K21.9 Gastro-esophageal reflux disease without esophagitis; J44.9 Chronic obstructive pulmonary disease, unspecified; E44.0 Moderate protein-calorie malnutrition; Z68.1 Body mass index [BMI] 19.9 or less, adult; Z20.822 Contact with and (suspected) exposure to COVID-19; I10 Essential (primary) hypertension; E78.5 Hyperlipidemia, unspecified; E03.9 Hypothyroidism, unspecified
CPT/HCPCS: 0223U; 36415 ×2; 80053 ×2; 85025 ×2; 86850; 86900; 86920; 99251; 99284; G0378 ×2; J7050 ×2; P9016; P9034 ×2; S0164

== ENCOUNTER 2022-02-06 10:16 | Observation (INO) | payer MEDICARE ==
[~2022-02-06] VITALS: Ht 170.2 cm; Wt 55.5 kg
[2022-02-06 10:59] LABS: INR 1.19; PROTHROMBIN TIME 16.2 seconds (11.9-14.5)
[2022-02-06 11:00] LABS: PARTIAL THROMBOPLASTIN TIME 36.3 seconds (23.8-35.5)
[2022-02-06 11:08] LABS: ALANINE AMINOTRANSFERASE 63 IU/L (0-55); ALBUMIN 2.9 g/dL (3.5-5.0); ALBUMIN/GLOBULIN RATIO 0.6 (0.8-2.0); ALKALINE PHOSPHATASE 114 IU/L (40-150); ANION GAP 17.5 mmol/L (8-16); BLOOD UREA NITROGEN 29 mg/dL (7-26); BUN/CREATININE RATIO 35 (6-25); CALCIUM 9.4 mg/dL (8.4-10.2); CARBON DIOXIDE 21 mmol/L (22-29); CHLORIDE 105 mmol/L (98-107); CREATININE, SERUM 0.84 mg/dL (0.57-1.11); GLUCOSE 151 mg/dL (74-118); POTASSIUM 3.5 mmol/L (3.5-5.1); SODIUM 140 mmol/L (136-145)
[2022-02-06 12:01] LABS: BASOPHILS % 0.6 % (0.0-1.0); EOSINOPHILS # (AUTO) 0.1 (0.0-0.4); EOSINOPHILS % 4.3 % (0.0-6.0); HEMATOCRIT 28.7 % (34.2-44.1); HEMOGLOBIN 9.2 g/dL (12.0-16.0); LYMPHOCYTES # (AUTO) 1.2 (1.0-3.2); MEAN CORPUSCULAR HEMOGLOBIN 27.6 pg (28-32); MEAN CORPUSCULAR HGB CONC 32.1 g/dL (31-35); MEAN CORPUSCULAR VOLUME 86.2 fL (81-99); MONOCYTES # (AUTO) 0.2 (0.2-0.8); MONOCYTES % 9.8 % (4.4-11.3); NEUTROPHILS # (AUTO) 0.2 (2.1-6.9); NEUTROPHILS % 11.7 % (38.7-80.0); RED BLOOD COUNT 3.33 x10e6/uL (3.6-5.1); RED CELL DISTRIBUTION WIDTH 14.6 % (11.7-14.4)
[2022-02-06 12:11] LABS: PLATELET COUNT 6 x10e3/uL (140-360)
[2022-02-06] MEDS ORDERED: ONDANSETRON HCL INJ 2MG/ML 2ML 2 MG/ML VIAL IV PRN (13:00)
[2022-02-06] MEDS: SODIUM CHLORIDE 0.9% 1000ML 1,000 ML IV SCH ×2 (13:22→18:15)
[2022-02-06 13:23] LABS: LYMPHOCYTES % (MANUAL) 77 % (19-48); MONOCYTES % (MANUAL) 17 % (3.4-9.0); NEUTROPHILS % (MANUAL) 7 % (40-74)
[2022-02-06 13:24] LABS: PLATELET ESTIMATE MARKEDLY DECREASED; PLATELET MORPHOLOGY COMMENT NORMAL; RBC MORPHOLOGY COMMENT NORMAL
[2022-02-06] MEDS ORDERED: SODIUM CHLORIDE 0.9% 250ML 250 ML ONE ×2 (16:29→21:49)
[2022-02-06 18:09] VITALS: BP 89/51
[2022-02-06 20:00] VITALS: BP 114/55
[2022-02-06 21:30] VITALS: BP 114/55
[2022-02-06 23:26] VITALS: BP 114/55
[2022-02-07] VITALS: BP 107/77
[2022-02-07 04:00] VITALS: BP 108/51
[2022-02-07 07:13] LABS: EOSINOPHILS # (AUTO) 0.1 (0.0-0.4); EOSINOPHILS % 3.5 % (0.0-6.0); HEMATOCRIT 23.4 % (34.2-44.1); HEMOGLOBIN 7.2 g/dL (12.0-16.0); LYMPHOCYTES % 56.4 % (18.0-39.1); MEAN CORPUSCULAR HEMOGLOBIN 27.6 pg (28-32); MEAN CORPUSCULAR HGB CONC 30.8 g/dL (31-35); MEAN CORPUSCULAR VOLUME 89.7 fL (81-99); MONOCYTES # (AUTO) 0.4 (0.2-0.8); MONOCYTES % 24.4 % (4.4-11.3); NEUTROPHILS # (AUTO) 0.2 (2.1-6.9); NEUTROPHILS % 13.4 % (38.7-80.0); PLATELET COUNT 80 x10e3/uL (140-360); RED BLOOD COUNT 2.61 x10e6/uL (3.6-5.1); RED CELL DISTRIBUTION WIDTH 14.4 % (11.7-14.4)
[2022-02-07 07:39] LABS: ALBUMIN 2.4 g/dL (3.5-5.0); ALBUMIN/GLOBULIN RATIO 0.6 (0.8-2.0); CALCIUM 8.9 mg/dL (8.4-10.2); CREATININE, SERUM 0.66 mg/dL (0.57-1.11)
[2022-02-07 07:43] VITALS: BP 103/66
[2022-02-07 10:38] LABS: EOSINOPHILS % (MANUAL) 1 % (0-7); LYMPHOCYTES % (MANUAL) 61 % (19-48); MONOCYTES % (MANUAL) 24 % (3.4-9.0); MYELOCYTES % (MANUAL) 3 % (0-0); NEUTROPHILS % (MANUAL) 11 % (40-74); PLATELET ESTIMATE MODERATELY DECREASED; PLATELET MORPHOLOGY COMMENT NORMAL; RBC MORPHOLOGY COMMENT NORMAL
== END 2022-02-07 08:47 | disposition home or self-care (01) ==
LOC: ER 10:23 → ERHOLD 12:58 → MED/SURG2 18:06
PROVIDERS: ADMIT Internal Medicine; ATTEND Internal Medicine
DX: D46.9 Myelodysplastic syndrome, unspecified (principal); E03.9 Hypothyroidism, unspecified; E78.5 Hyperlipidemia, unspecified; Z20.822 Contact with and (suspected) exposure to COVID-19; D61.09 Other constitutional aplastic anemia
CPT/HCPCS: 0223U; 36415 ×2; 80053 ×2; 85025 ×2; 85610; 85730; 86850; 86900; 99284; G0378 ×2; J7030; J7050; P9034

== ENCOUNTER 2022-02-12 08:10 | Emergency (ER) | payer MEDICARE ==
[~2022-02-12] VITALS: Ht 170.2 cm; Wt 55.3 kg
[2022-02-12 08:45] LABS: EOSINOPHILS % 2.8 % (0.0-6.0); HEMATOCRIT 23.8 % (34.2-44.1); HEMOGLOBIN 7.2 g/dL (12.0-16.0); LYMPHOCYTES # (AUTO) 0.9 (1.0-3.2); LYMPHOCYTES % 62.5 % (18.0-39.1); MEAN CORPUSCULAR HEMOGLOBIN 27.7 pg (28-32); MEAN CORPUSCULAR HGB CONC 30.3 g/dL (31-35); MEAN CORPUSCULAR VOLUME 91.5 fL (81-99); MONOCYTES # (AUTO) 0.3 (0.2-0.8); MONOCYTES % 18.1 % (4.4-11.3); NEUTROPHILS # (AUTO) 0.2 (2.1-6.9); NEUTROPHILS % 15.2 % (38.7-80.0); RED CELL DISTRIBUTION WIDTH 14.4 % (11.7-14.4)
[2022-02-12 08:48] LABS: PLATELET COUNT 16 x10e3/uL (140-360)
[2022-02-12] MEDS ORDERED: SODIUM CHLORIDE 0.9% 250ML 250 ML ONE (11:40)
[2022-02-12 11:46] LABS: ELLIPTOCYTE, RBC SLIGHT
[2022-02-12 11:47] LABS: PLATELET ESTIMATE MARKEDLY DECREASED; PLATELET MORPHOLOGY COMMENT NORMAL; RBC MORPHOLOGY COMMENT NORMAL
[2022-02-12 13:22] VITALS: BP 130/57
== END 2022-02-12 13:00 | disposition home or self-care (01) ==
LOC: ER 08:15 → ERHOLD 10:19 → UNDOADMOB 10:19 → ER 13:00
DX: D69.6 Thrombocytopenia, unspecified (principal); E03.9 Hypothyroidism, unspecified; E78.5 Hyperlipidemia, unspecified; D46.9 Myelodysplastic syndrome, unspecified; Z96.652 Presence of left artificial knee joint; Z85.89 Personal history of malignant neoplasm of other organs and systems
CPT/HCPCS: 36415; 85025; 86850; 86900; 99283; J7050; P9034

== ENCOUNTER 2022-02-14 08:18 | Observation (INO) | payer MEDICARE ==
[~2022-02-14] VITALS: Ht 170.2 cm; Wt 55.3 kg
[2022-02-14 09:16] LABS: EOSINOPHILS # (AUTO) 0.1 (0.0-0.4); EOSINOPHILS % 3.2 % (0.0-6.0); LYMPHOCYTES % 45.4 % (18.0-39.1); MEAN CORPUSCULAR HEMOGLOBIN 27.7 pg (28-32); MEAN CORPUSCULAR HGB CONC 30.7 g/dL (31-35); MEAN CORPUSCULAR VOLUME 90.1 fL (81-99); MONOCYTES # (AUTO) 0.8 (0.2-0.8); MONOCYTES % 34.9 % (4.4-11.3); NEUTROPHILS # (AUTO) 0.3 (2.1-6.9); NEUTROPHILS % 13.3 % (38.7-80.0); RED BLOOD COUNT 2.42 x10e6/uL (3.6-5.1); RED CELL DISTRIBUTION WIDTH 14.4 % (11.7-14.4)
[2022-02-14 09:25] LABS: HEMATOCRIT 21.8 % (34.2-44.1); HEMOGLOBIN 6.7 g/dL (12.0-16.0)
[2022-02-14 09:26] LABS: PLATELET COUNT 43 x10e3/uL (140-360)
[2022-02-14 09:30] LABS: ALANINE AMINOTRANSFERASE 17 IU/L (0-55); ALBUMIN 2.7 g/dL (3.5-5.0); ALBUMIN/GLOBULIN RATIO 0.6 (0.8-2.0); ALKALINE PHOSPHATASE 105 IU/L (40-150); ANION GAP 14.7 mmol/L (8-16); BLOOD UREA NITROGEN 21 mg/dL (7-26); BUN/CREATININE RATIO 28 (6-25); CALCIUM 9.2 mg/dL (8.4-10.2); CARBON DIOXIDE 20 mmol/L (22-29); CHLORIDE 104 mmol/L (98-107); CREATINE KINASE 10 IU/L (29-168); CREATININE, SERUM 0.75 mg/dL (0.57-1.11); GLUCOSE 98 mg/dL (74-118); MAGNESIUM 1.5 MG/DL (1.3-2.1); POTASSIUM 3.7 mmol/L (3.5-5.1); SODIUM 135 mmol/L (136-145)
[2022-02-14] MEDS ORDERED: SODIUM CHLORIDE 0.9% 250ML 250 ML IV ONE (09:30)
[2022-02-14] MEDS ORDERED: FUROSEMIDE INJ 10 MG/ML 2 ML VIAL IV PRN (09:30)
[2022-02-14 09:56] LABS: CLARITY,URINE CLOUDY (CLEAR); COLOR,URINE YELLOW (YELLOW); KETONES,URINE TRACE (NEGATIVE); LEUKOCYTE ESTERASE ,URINE SMALL (NEGATIVE); NITRITE,URINE NEGATIVE (NEGATIVE); PROTEIN,URINE DIPSTICK 1+ (NEGATIVE); URINE UROBILINOGEN 0.2 mg/dL (0.2 - 1)
[2022-02-14 10:08] LABS: BACTERIA,URINE MODERATE /HPF; EPITHELIAL CELLS,URINE MANY /LPF; RENAL EPITHELIAL CELLS,URINE MODERATE; TRANSITIONAL EPI CELLS,URINE MODERATE
[2022-02-14] MEDS ORDERED: ONDANSETRON HCL INJ 2MG/ML 2ML 2 MG/ML VIAL IV PRN (10:45)
[2022-02-14] MEDS ORDERED: Vancomycin IV 1 GM in SODIUM CHLORIDE 0.9% 250ML 250 ML IV ONE (10:45)
[2022-02-14] MEDS ORDERED: SODIUM CHLORIDE 0.9% 1000ML 1,000 ML IV SCH (10:45)
[2022-02-14 12:48] LABS: LYMPHOCYTES % (MANUAL) 5 % (19-48); NEUTROPHILS % (MANUAL) 95 % (40-74); PLATELET ESTIMATE MODERATELY DECREASED; PLATELET MORPHOLOGY COMMENT NORMAL; RBC MORPHOLOGY COMMENT NORMAL
[2022-02-14 20:30] VITALS: BP_SYST 118; BP_SYST 121; BP_DIAS 61; BP_DIAS 62
[2022-02-14 20:57] VITALS: BP 118/61
[2022-02-15 01:04] VITALS: BP 115/63
[2022-02-15] MEDS ORDERED: MULTI-VITAMIN1 EACH PO (01:58)
[2022-02-15 05:13] LABS: EOSINOPHILS # (AUTO) 0.1 (0.0-0.4); EOSINOPHILS % 3.4 % (0.0-6.0); HEMOGLOBIN 10.2 g/dL (12.0-16.0); LYMPHOCYTES # (AUTO) 0.9 (1.0-3.2); LYMPHOCYTES % 36.6 % (18.0-39.1); MEAN CORPUSCULAR HEMOGLOBIN 28.9 pg (28-32); MONOCYTES # (AUTO) 1.1 (0.2-0.8); MONOCYTES % 44.1 % (4.4-11.3); NEUTROPHILS # (AUTO) 0.3 (2.1-6.9); RED BLOOD COUNT 3.53 x10e6/uL (3.6-5.1); RED CELL DISTRIBUTION WIDTH 13.9 % (11.7-14.4)
[2022-02-15 05:28] VITALS: BP 114/67
[2022-02-15 05:32] LABS: PLATELET COUNT 40 x10e3/uL (140-360)
[2022-02-15 05:33] LABS: ANION GAP 15.9 mmol/L (8-16); CALCIUM 8.9 mg/dL (8.4-10.2); CREATININE, SERUM 0.79 mg/dL (0.57-1.11); POTASSIUM 3.9 mmol/L (3.5-5.1)
[2022-02-15 08:56] VITALS: BP 124/74
[2022-02-15] MEDS ORDERED: PANTOPRAZOLE SOD 40 MG TABEC PO SCH (09:00)
[2022-02-15] MEDS ORDERED: PREGABALIN 75 MG CAP PO SCH (09:00)
[2022-02-15] MEDS ORDERED: LIOTHYRONINE SODIUM 5 MCG TAB PO SCH (09:00)
[2022-02-15] MEDS ORDERED: CITALOPRAM HYDROBROMIDE 20 MG TAB PO SCH (09:00)
[2022-02-15 09:15] VITALS: BP 114/67
[2022-02-15 09:16] VITALS: BP 114/67
[2022-02-15] MEDS ORDERED: HEPARIN 500 UNITS/5ML MDV INJ ONE (09:30)
[2022-02-15] MEDS ORDERED: TRAZODONE HCL 50 MG TAB PO SCH (21:00)
[2022-02-15] MEDS ORDERED: SIMVASTATIN 80 MG TAB PO SCH (21:00)
== END 2022-02-15 10:07 | disposition home or self-care (01) ==
LOC: ER 08:27 → ERHOLD 10:32 → MED/SURG2 19:37
PROVIDERS: ADMIT Internal Medicine; ATTEND Internal Medicine
DX: C92.90 Myeloid leukemia, unspecified, not having achieved remission (principal); D69.59 Other secondary thrombocytopenia; D70.9 Neutropenia, unspecified; D61.818 Other pancytopenia; F41.9 Anxiety disorder, unspecified; E03.9 Hypothyroidism, unspecified; I10 Essential (primary) hypertension; E78.00 Pure hypercholesterolemia, unspecified; Z20.822 Contact with and (suspected) exposure to COVID-19
CPT/HCPCS: 0223U; 36415 ×2; 71045; 80048; 80053; 81001; 82550; 82553; 83735; 84484; 85025 ×2; 86850; 86900; 86920; 87040; 87086; 93005; 99284; C9113; G0378 ×2; J1940; J2543 ×2; J3370; J7030; J7050; P9016; S0164

== ENCOUNTER 2022-02-24 13:23 | Observation (INO) | payer MEDICARE ==
[~2022-02-24] VITALS: Ht 170.2 cm; Wt 54.5 kg
[~2022-02-24 13:23] MED LIST changes: +MULTI-VITAMIN1 EACH PO
[2022-02-24] MEDS ORDERED: SODIUM CHLORIDE FLUSH 10 ML SYR INJ PRN (14:15)
[2022-02-24] MEDS ORDERED: ONDANSETRON HCL INJ 2MG/ML 2ML 2 MG/ML VIAL IV PRN (14:15)
[2022-02-24 14:28] LABS: BASOPHILS % 0.2 % (0.0-1.0); EOSINOPHILS # (AUTO) 0.1 (0.0-0.4); HEMATOCRIT 25.6 % (34.2-44.1); LYMPHOCYTES # (AUTO) 4.7 (1.0-3.2); LYMPHOCYTES % 36.4 % (18.0-39.1); MEAN CORPUSCULAR HEMOGLOBIN 28.6 pg (28-32); MEAN CORPUSCULAR HGB CONC 31.3 g/dL (31-35); MEAN CORPUSCULAR VOLUME 91.4 fL (81-99); NEUTROPHILS # (AUTO) 1.2 (2.1-6.9); NEUTROPHILS % 9.2 % (38.7-80.0); RED CELL DISTRIBUTION WIDTH 14.2 % (11.7-14.4)
[2022-02-24 14:30] LABS: PLATELET COUNT 4 x10e3/uL (140-360)
[2022-02-24 14:43] LABS: ALBUMIN 2.3 g/dL (3.5-5.0); ALBUMIN/GLOBULIN RATIO 0.5 (0.8-2.0); ANION GAP 15.2 mmol/L (8-16); CALCIUM 8.5 mg/dL (8.4-10.2); CREATININE, SERUM 0.92 mg/dL (0.57-1.11); POTASSIUM 4.2 mmol/L (3.5-5.1)
[2022-02-24] MEDS ORDERED: SODIUM CHLORIDE 0.9% 250ML 250 ML ONE (17:06)
[2022-02-24 19:54] VITALS: BP 116/52
[2022-02-24 20:00] VITALS: BP 116/52
[2022-02-24 20:34] LABS: BLAST CELLS % MANUAL 1; LYMPHOCYTES % (MANUAL) 26 % (19-48); MONOCYTES % (MANUAL) 66 % (3.4-9.0); NEUTROPHILS % (MANUAL) 7 % (40-74)
[2022-02-24 20:35] LABS: PLATELET ESTIMATE MARKEDLY DECREASED; PLATELET MORPHOLOGY COMMENT NORMAL
[2022-02-24 20:36] LABS: ANISOCYTOSIS SLIG; POIKILOCYTOSIS SLIGHT; RBC MORPHOLOGY COMMENT ABNORMAL
[2022-02-25 00:38] VITALS: BP 124/49
[2022-02-25 04:00] VITALS: BP 114/50
[2022-02-25 05:14] LABS: BASOPHILS % 0.2 % (0.0-1.0); EOSINOPHILS # (AUTO) 0.1 (0.0-0.4); EOSINOPHILS % 0.6 % (0.0-6.0); HEMATOCRIT 22.1 % (34.2-44.1); HEMOGLOBIN 7.3 g/dL (12.0-16.0); LYMPHOCYTES # (AUTO) 4.1 (1.0-3.2); LYMPHOCYTES % 33.9 % (18.0-39.1); MEAN CORPUSCULAR HEMOGLOBIN 28.9 pg (28-32); MEAN CORPUSCULAR VOLUME 87.4 fL (81-99); MONOCYTES # (AUTO) 6.3 (0.2-0.8); MONOCYTES % 51.5 % (4.4-11.3); NEUTROPHILS % 8.4 % (38.7-80.0); RED BLOOD COUNT 2.53 x10e6/uL (3.6-5.1); RED CELL DISTRIBUTION WIDTH 14.3 % (11.7-14.4)
[2022-02-25] MEDS ORDERED: CEFTRIAXONE 1 GM VIAL ONE (05:33)
[2022-02-25 05:42] LABS: PLATELET COUNT 29 x10e3/uL (140-360)
[2022-02-25] MEDS ORDERED: SODIUM CHLORIDE 0.9% 250ML 250 ML IV ONE (05:45)
[2022-02-25] MEDS ORDERED: ACETAMINOPHEN 325 MG TAB PO PRN (07:30)
[2022-02-25 08:18] LABS: BLAST CELLS % MANUAL 53; LYMPHOCYTES % (MANUAL) 16 % (19-48); METAMYELOCYTES % (MANUAL) 2 % (0-0); MONOCYTES % (MANUAL) 14 % (3.4-9.0); NEUTROPHILS % (MANUAL) 14 % (40-74)
[2022-02-25 08:20] LABS: PLATELET ESTIMATE MARKEDLY DECREASED; PLATELET MORPHOLOGY COMMENT FEW LARGE
[2022-02-25 08:21] LABS: RBC MORPHOLOGY COMMENT NORMAL
[2022-02-25] MEDS ORDERED: ONDANSETRON HCL 4 MG ORAL DISINTEGRATING TAB PO PRN (08:45)
[2022-02-25] MEDS ORDERED: CITALOPRAM HYDROBROMIDE 20 MG TAB PO SCH (09:00)
[2022-02-25] MEDS ORDERED: PREGABALIN 75 MG CAP PO SCH ×2 (09:00)
[2022-02-25] MEDS ORDERED: LIOTHYRONINE SODIUM 5 MCG TAB PO SCH (09:00)
[2022-02-25 09:03] VITALS: BP 114/50
[2022-02-25 09:35] VITALS: BP 121/48
[2022-02-25] MEDS: PANTOPRAZOLE SOD 40 MG TABEC PO SCH ×2 (10:00→16:30)
[2022-02-25] MEDS ORDERED: SODIUM CHLORIDE 0.9% 250ML 250 ML ONE ×2 (10:25→14:28)
[2022-02-25 12:04] VITALS: BP 108/50
[2022-02-25] MEDS ORDERED: HEPARIN 500 UNITS/5ML MDV INJ ONE (16:00)
[2022-02-25] MEDS ORDERED: SIMVASTATIN 80 MG TAB PO SCH (21:00)
== END 2022-02-25 17:05 | disposition home or self-care (01) ==
LOC: ER 13:28 → ERHOLD 14:12 → MED/SURG 19:54
PROVIDERS: ADMIT Internal Medicine; ATTEND Internal Medicine
DX: C94.6 Myelodysplastic disease, not elsewhere classified (principal); L03.115 Cellulitis of right lower limb; F41.9 Anxiety disorder, unspecified; D61.818 Other pancytopenia; S90.31XA Contusion of right foot, initial encounter; E78.5 Hyperlipidemia, unspecified; E03.9 Hypothyroidism, unspecified; D69.6 Thrombocytopenia, unspecified; Z20.822 Contact with and (suspected) exposure to COVID-19; Z82.49 Family history of ischemic heart disease and other diseases of the circulatory system; Z87.891 Personal history of nicotine dependence; J44.9 Chronic obstructive pulmonary disease, unspecified
CPT/HCPCS: 0223U; 36415 ×2; 36430; 80053; 85025 ×2; 86850; 86900; 86920; 99284; G0378 ×2; J0696; J7050 ×2; P9016; P9034 ×2; S0164

== ENCOUNTER 2022-02-25 20:36 | Emergency (ER) | payer MEDICARE ==
[~2022-02-25] VITALS: Ht 170.2 cm; Wt 54.4 kg
[2022-02-25] MEDS ORDERED: LORAZEPAM INJ 2 MG/ML VIAL IV ONE (21:00)
[2022-02-25] MEDS ORDERED: LORAZEPAM 1 MG TAB PO ONE (21:15)
== END 2022-02-25 22:16 | disposition home or self-care (01) ==
LOC: ER 20:48
DX: R50.9 Fever, unspecified (principal); R06.00 Dyspnea, unspecified; D46.9 Myelodysplastic syndrome, unspecified; F41.9 Anxiety disorder, unspecified
CPT/HCPCS: 93005; 99283

== ENCOUNTER 2022-02-27 19:55 | Observation (INO) | payer MEDICARE ==
[~2022-02-27] VITALS: Ht 170.2 cm; Wt 54.4 kg
[2022-02-27 20:56] LABS: BASOPHILS % 0.2 % (0.0-1.0); EOSINOPHILS # (AUTO) 0.1 (0.0-0.4); EOSINOPHILS % 0.5 % (0.0-6.0); HEMATOCRIT 30.5 % (34.2-44.1); HEMOGLOBIN 9.9 g/dL (12.0-16.0); LYMPHOCYTES # (AUTO) 6.3 (1.0-3.2); MEAN CORPUSCULAR HEMOGLOBIN 28.9 pg (28-32); MEAN CORPUSCULAR HGB CONC 32.5 g/dL (31-35); MEAN CORPUSCULAR VOLUME 89.2 fL (81-99); MONOCYTES # (AUTO) 6.8 (0.2-0.8); MONOCYTES % 45.8 % (4.4-11.3); NEUTROPHILS # (AUTO) 1.4 (2.1-6.9); RED BLOOD COUNT 3.42 x10e6/uL (3.6-5.1); RED CELL DISTRIBUTION WIDTH 15.1 % (11.7-14.4)
[2022-02-27 20:59] LABS: PLATELET COUNT 8 x10e3/uL (140-360)
[2022-02-27 21:05] LABS: ALBUMIN 2.4 g/dL (3.5-5.0); ALBUMIN/GLOBULIN RATIO 0.5 (0.8-2.0); ANION GAP 17.8 mmol/L (8-16); CALCIUM 8.7 mg/dL (8.4-10.2); CREATININE, SERUM 0.92 mg/dL (0.57-1.11); POTASSIUM 3.8 mmol/L (3.5-5.1)
[2022-02-27] MEDS ORDERED: ONDANSETRON HCL INJ 2MG/ML 2ML 2 MG/ML VIAL IV PRN (23:15)
[2022-02-27] MEDS ORDERED: SODIUM CHLORIDE FLUSH 10 ML SYR INJ PRN (23:15)
[2022-02-28 02:04] VITALS: BP 115/61
[2022-02-28 04:24] VITALS: BP 101/51
[2022-02-28 04:42] VITALS: BP 101/51
[2022-02-28 06:43] LABS: BASOPHILS % 0.2 % (0.0-1.0); EOSINOPHILS # (AUTO) 0.1 (0.0-0.4); EOSINOPHILS % 0.7 % (0.0-6.0); HEMATOCRIT 23.4 % (34.2-44.1); HEMOGLOBIN 7.9 g/dL (12.0-16.0); LYMPHOCYTES # (AUTO) 5.8 (1.0-3.2); LYMPHOCYTES % 35.7 % (18.0-39.1); MEAN CORPUSCULAR HEMOGLOBIN 28.8 pg (28-32); MEAN CORPUSCULAR HGB CONC 33.8 g/dL (31-35); MEAN CORPUSCULAR VOLUME 85.4 fL (81-99); MONOCYTES # (AUTO) 8.1 (0.2-0.8); MONOCYTES % 49.6 % (4.4-11.3); NEUTROPHILS # (AUTO) 1.6 (2.1-6.9); RED BLOOD COUNT 2.74 x10e6/uL (3.6-5.1); RED CELL DISTRIBUTION WIDTH 15.1 % (11.7-14.4)
[2022-02-28 06:51] LABS: PLATELET COUNT 40 x10e3/uL (140-360)
[2022-02-28 07:20] LABS: ANION GAP 14.4 mmol/L (8-16); CREATININE, SERUM 0.82 mg/dL (0.57-1.11); POTASSIUM 4.4 mmol/L (3.5-5.1)
[2022-02-28 07:56] VITALS: BP 126/58
[2022-02-28 08:04] VITALS: BP 126/58
[2022-02-28] MEDS ORDERED: SODIUM CHLORIDE 0.9% 250ML 250 ML ONE (09:35)
[2022-02-28] MEDS ORDERED: HEPARIN 500 UNITS/5ML MDV INJ ONE (10:45)
[2022-02-28 11:27] VITALS: BP 126/58
[2022-02-28 11:39] LABS: BLAST CELLS % MANUAL 30; LYMPHOCYTES % (MANUAL) 21 % (19-48); METAMYELOCYTES % (MANUAL) 1 % (0-0); MONOCYTES % (MANUAL) 35 % (3.4-9.0); NEUTROPHILS % (MANUAL) 12 % (40-74)
[2022-02-28 12:13] LABS: NUCLEATED RED BLOOD CELLS 100; PLATELET MORPHOLOGY COMMENT NORMAL
[2022-02-28 12:50] LABS: PLATELET ESTIMATE MODERATELY DECREASED
== END 2022-02-28 11:40 | disposition home or self-care (01) ==
LOC: ER 20:48 → ERHOLD 23:06 → MED/SURG 02-28 01:48
PROVIDERS: ADMIT Family Medicine; ATTEND Family Medicine
DX: D46.9 Myelodysplastic syndrome, unspecified (principal); D69.59 Other secondary thrombocytopenia; E78.5 Hyperlipidemia, unspecified; Z96.652 Presence of left artificial knee joint; Z90.49 Acquired absence of other specified parts of digestive tract; E03.9 Hypothyroidism, unspecified; Z20.822 Contact with and (suspected) exposure to COVID-19
CPT/HCPCS: 36415 ×2; 36430; 71045; 80048; 80053; 85025 ×2; 86850; 86900; 93005; 99284; G0378 ×2; J7050; P9034; U0002

== ENCOUNTER 2022-03-04 15:19 | Inpatient (IN) | payer MEDICARE ==
[~2022-03-04] VITALS: Ht 170.2 cm; Wt 54.4 kg
[2022-03-04 17:10] LABS: BASOPHILS # (AUTO) 0.1 (0.0-0.1); BASOPHILS % 0.2 % (0.0-1.0); EOSINOPHILS # (AUTO) 0.6 (0.0-0.4); HEMATOCRIT 29.1 % (34.2-44.1); LYMPHOCYTES # (AUTO) 5.8 (1.0-3.2); LYMPHOCYTES % 10.1 % (18.0-39.1); MEAN CORPUSCULAR HEMOGLOBIN 28.3 pg (28-32); MEAN CORPUSCULAR HGB CONC 30.9 g/dL (31-35); MEAN CORPUSCULAR VOLUME 91.5 fL (81-99); MONOCYTES % 83.2 % (4.4-11.3); NEUTROPHILS # (AUTO) 2.4 (2.1-6.9); NEUTROPHILS % 4.1 % (38.7-80.0); RED BLOOD COUNT 3.18 x10e6/uL (3.6-5.1); RED CELL DISTRIBUTION WIDTH 15.6 % (11.7-14.4)
[2022-03-04 17:12] LABS: PLATELET COUNT 4 x10e3/uL (140-360)
[2022-03-04 17:19] LABS: INR 1.21; PROTHROMBIN TIME 16.4 seconds (11.9-14.5)
[2022-03-04 17:20] LABS: PARTIAL THROMBOPLASTIN TIME 30.9 seconds (23.8-35.5)
[2022-03-04 17:26] LABS: ALANINE AMINOTRANSFERASE 21 IU/L (0-55); ALBUMIN 2.7 g/dL (3.5-5.0); ALBUMIN/GLOBULIN RATIO 0.9 (0.8-2.0); ALKALINE PHOSPHATASE 75 IU/L (40-150); ANION GAP 15.1 mmol/L (8-16); BLOOD UREA NITROGEN 26 mg/dL (7-26); BUN/CREATININE RATIO 28 (6-25); CALCIUM 7.9 mg/dL (8.4-10.2); CARBON DIOXIDE 22 mmol/L (22-29); CHLORIDE 107 mmol/L (98-107); CREATINE KINASE 19 IU/L (29-168); CREATININE, SERUM 0.92 mg/dL (0.57-1.11); GLUCOSE 117 mg/dL (74-118); POTASSIUM 4.1 mmol/L (3.5-5.1); SODIUM 140 mmol/L (136-145)
[2022-03-04] MEDS ORDERED: Morphine 2mg Syringe 2 MG/ML SYR IV PRN (18:00)
[2022-03-04] MEDS ORDERED: SODIUM CHLORIDE FLUSH 10 ML SYR INJ PRN (18:00)
[2022-03-04] MEDS ORDERED: ONDANSETRON HCL INJ 2MG/ML 2ML 2 MG/ML VIAL IV PRN (18:00)
[2022-03-04 19:16] LABS: COLOR,URINE YELLOW (YELLOW)
[2022-03-04 19:17] LABS: CLARITY,URINE SL CLOUDY (CLEAR); KETONES,URINE TRACE (NEGATIVE); LEUKOCYTE ESTERASE ,URINE NEGATIVE (NEGATIVE); NITRITE,URINE NEGATIVE (NEGATIVE); PROTEIN,URINE DIPSTICK TRACE (NEGATIVE); URINE UROBILINOGEN 0.2 mg/dL (0.2 - 1)
[2022-03-04 19:28] LABS: BACTERIA,URINE FEW /HPF; EPITHELIAL CELLS,URINE MODERATE /LPF; HYALINE CASTS 0-1 (0-1); RBC,URINE 0-5 /HPF (0-5); RENAL EPITHELIAL CELLS,URINE FEW; WBC,URINE (MAN) 0-5 /HPF (0-5)
[2022-03-04 20:00] VITALS: BP 113/52
[2022-03-04 20:10] LABS: LYMPHOCYTES % (MANUAL) 12 % (19-48); MONOCYTES % (MANUAL) 81 % (3.4-9.0); NEUTROPHILS % (MANUAL) 6 % (40-74); PLATELET ESTIMATE MARKEDLY DECREASED; PLATELET MORPHOLOGY COMMENT NORMAL; RBC MORPHOLOGY COMMENT NORMAL
[2022-03-04 20:49] LABS: CREATINE KINASE 19 IU/L (29-168)
[2022-03-04 21:00] VITALS: BP 113/52
[2022-03-04 22:00] VITALS: BP 113/52
[2022-03-04] MEDS ORDERED: SODIUM CHLORIDE 0.9% 250ML 250 ML ONE (22:10)
[2022-03-05] VITALS (10 sets, daily range): BP systolic 99–144; BP diastolic 49–68
[2022-03-05 06:01] LABS: BASOPHILS # (AUTO) 0.2 (0.0-0.1); BASOPHILS % 0.3 % (0.0-1.0); EOSINOPHILS # (AUTO) 0.1 (0.0-0.4); EOSINOPHILS % 0.2 % (0.0-6.0); HEMATOCRIT 23.7 % (34.2-44.1); LYMPHOCYTES # (AUTO) 4.6 (1.0-3.2); LYMPHOCYTES % 7.8 % (18.0-39.1); MEAN CORPUSCULAR HEMOGLOBIN 28.6 pg (28-32); MEAN CORPUSCULAR HGB CONC 32.9 g/dL (31-35); MEAN CORPUSCULAR VOLUME 86.8 fL (81-99); MONOCYTES # (AUTO) 50.4 (0.2-0.8); MONOCYTES % 85.3 % (4.4-11.3); NEUTROPHILS # (AUTO) 2.6 (2.1-6.9); NEUTROPHILS % 4.4 % (38.7-80.0); RED BLOOD COUNT 2.73 x10e6/uL (3.6-5.1); RED CELL DISTRIBUTION WIDTH 15.5 % (11.7-14.4)
[2022-03-05 06:22] LABS: ALANINE AMINOTRANSFERASE 17 IU/L (0-55); ALBUMIN 2.6 g/dL (3.5-5.0); ALBUMIN/GLOBULIN RATIO 0.9 (0.8-2.0); ALKALINE PHOSPHATASE 64 IU/L (40-150); ANION GAP 15.9 mmol/L (8-16); BLOOD UREA NITROGEN 22 mg/dL (7-26); BUN/CREATININE RATIO 29 (6-25); CALCIUM 7.8 mg/dL (8.4-10.2); CARBON DIOXIDE 21 mmol/L (22-29); CHLORIDE 110 mmol/L (98-107); CREATINE KINASE 30 IU/L (29-168); CREATININE, SERUM 0.75 mg/dL (0.57-1.11); GLUCOSE 95 mg/dL (74-118); POTASSIUM 3.9 mmol/L (3.5-5.1); SODIUM 143 mmol/L (136-145)
[2022-03-05 06:25] LABS: HEMOGLOBIN 7.8 g/dL (12.0-16.0); PLATELET COUNT 60 x10e3/uL (140-360)
[2022-03-05 07:27] LABS: BLAST CELLS % MANUAL 32; LYMPHOCYTES % (MANUAL) 17 % (19-48); METAMYELOCYTES % (MANUAL) 2 % (0-0); MONOCYTES % (MANUAL) 16 % (3.4-9.0); MYELOCYTES % (MANUAL) 20 % (0-0); NEUTROPHILS % (MANUAL) 7 % (40-74); PROMYELOCYTES % (MANUAL) 6 % (0-0)
[2022-03-05 07:28] LABS: PLATELET ESTIMATE MODERATELY DECREASED; PLATELET MORPHOLOGY COMMENT NORMAL; RBC MORPHOLOGY COMMENT NORMAL
[2022-03-05 07:29] LABS: SMUDGE CELLS FEW
[2022-03-05] MEDS: PANTOPRAZOLE SOD 40 MG TABEC PO SCH ×2 (09:42→15:22)
[2022-03-05] MEDS: LIOTHYRONINE SODIUM 5 MCG TAB PO SCH (09:42)
[2022-03-05] MEDS: LACTOBACILLUS ACIDOPHILUS CAPSULE PO SCH (09:43)
[2022-03-05] MEDS: CITALOPRAM HYDROBROMIDE 20 MG TAB PO SCH (09:43)
[2022-03-05] MEDS: PREGABALIN 75 MG CAP PO SCH ×2 (09:43→18:11)
[2022-03-05] MEDS: MULTIVITAMINS/MINERALS TAB PO SCH (09:43)
[2022-03-05 14:17] LABS: CREATINE KINASE MB 0.5 ng/mL (0-5.0)
[2022-03-05] MEDS ORDERED: FUROSEMIDE INJ 10 MG/ML 2 ML VIAL IV PRN (17:45)
[2022-03-05] MEDS ORDERED: SODIUM CHLORIDE 0.9% 250ML 250 ML IV ONE (18:15)
[2022-03-05] MEDS ORDERED: SODIUM CHLORIDE 0.9% 250ML 250 ML ONE (20:22)
[2022-03-05] MEDS: SIMVASTATIN 80 MG TAB PO SCH (21:00)
[2022-03-05] MEDS: TRAZODONE HCL 50 MG TAB PO SCH (21:00)
[2022-03-06] VITALS (7 sets, daily range): BP systolic 113–125; BP diastolic 48–60
[2022-03-06 06:10] LABS: BASOPHILS # (AUTO) 0.3 (0.0-0.1); BASOPHILS % 0.5 % (0.0-1.0); EOSINOPHILS # (AUTO) 0.5 (0.0-0.4); EOSINOPHILS % 0.7 % (0.0-6.0); HEMATOCRIT 31.7 % (34.2-44.1); HEMOGLOBIN 10.8 g/dL (12.0-16.0); LYMPHOCYTES # (AUTO) 4.9 (1.0-3.2); LYMPHOCYTES % 7.2 % (18.0-39.1); MEAN CORPUSCULAR HEMOGLOBIN 28.7 pg (28-32); MEAN CORPUSCULAR HGB CONC 34.1 g/dL (31-35); MEAN CORPUSCULAR VOLUME 84.3 fL (81-99); MONOCYTES % 86.6 % (4.4-11.3); NEUTROPHILS # (AUTO) 1.6 (2.1-6.9); NEUTROPHILS % 2.4 % (38.7-80.0); RED BLOOD COUNT 3.76 x10e6/uL (3.6-5.1); RED CELL DISTRIBUTION WIDTH 15.7 % (11.7-14.4)
[2022-03-06 06:22] LABS: PLATELET COUNT 7 x10e3/uL (140-360)
[2022-03-06 06:30] LABS: ALBUMIN 2.5 g/dL (3.5-5.0); ALBUMIN/GLOBULIN RATIO 0.8 (0.8-2.0); ANION GAP 16.6 mmol/L (8-16); CALCIUM 8.1 mg/dL (8.4-10.2); CREATININE, SERUM 0.91 mg/dL (0.57-1.11); POTASSIUM 3.6 mmol/L (3.5-5.1)
[2022-03-06] MEDS: LACTOBACILLUS ACIDOPHILUS CAPSULE PO SCH (08:24)
[2022-03-06] MEDS: PANTOPRAZOLE SOD 40 MG TABEC PO SCH ×2 (08:24→15:43)
[2022-03-06] MEDS: PREGABALIN 75 MG CAP PO SCH ×2 (08:24→15:43)
[2022-03-06] MEDS: MULTIVITAMINS/MINERALS TAB PO SCH (08:24)
[2022-03-06] MEDS: CITALOPRAM HYDROBROMIDE 20 MG TAB PO SCH (08:24)
[2022-03-06] MEDS: LIOTHYRONINE SODIUM 5 MCG TAB PO SCH (08:24)
[2022-03-06 09:09] LABS: BAND NEUTROPHILS % (MANUAL) 1 %; BLAST CELLS % MANUAL 23; LYMPHOCYTES % (MANUAL) 19 % (19-48); MONOCYTES % (MANUAL) 50 % (3.4-9.0); NEUTROPHILS % (MANUAL) 4 % (40-74); PLATELET ESTIMATE MARKEDLY DECREASED; PLATELET MORPHOLOGY COMMENT NORMAL; RBC MORPHOLOGY COMMENT NORMAL
[2022-03-06] MEDS: ALBUTEROL/IPRATROPIUM 3 ML NEB NEB PRN ×2 (12:10→19:43)
[2022-03-06] MEDS: HYDROCODONE/APAP 10MG-325MG TAB PO PRN ×2 (16:15→20:25)
[2022-03-06] MEDS ORDERED: SODIUM CHLORIDE 0.9% 250ML 250 ML ONE ×2 (16:34→18:10)
[2022-03-06] MEDS ORDERED: ONDANSETRON HCL 4 MG ORAL DISINTEGRATING TAB PO PRN (17:00)
[2022-03-06] MEDS: TRAZODONE HCL 50 MG TAB PO SCH (20:24)
[2022-03-06] MEDS: SIMVASTATIN 80 MG TAB PO SCH (20:25)
[2022-03-07] VITALS: BP 108/52
[2022-03-07 04:00] VITALS: BP 132/68
[2022-03-07] MEDS: HYDROCODONE/APAP 10MG-325MG TAB PO PRN ×2 (05:16→18:18)
[2022-03-07 06:39] LABS: BASOPHILS # (AUTO) 0.3 (0.0-0.1); BASOPHILS % 0.4 % (0.0-1.0); EOSINOPHILS # (AUTO) 0.2 (0.0-0.4); EOSINOPHILS % 0.3 % (0.0-6.0); HEMATOCRIT 28.8 % (34.2-44.1); HEMOGLOBIN 9.2 g/dL (12.0-16.0); LYMPHOCYTES # (AUTO) 4.6 (1.0-3.2); LYMPHOCYTES % 5.8 % (18.0-39.1); MEAN CORPUSCULAR HEMOGLOBIN 28.3 pg (28-32); MEAN CORPUSCULAR HGB CONC 31.9 g/dL (31-35); MEAN CORPUSCULAR VOLUME 88.6 fL (81-99); MONOCYTES # (AUTO) 67.8 (0.2-0.8); MONOCYTES % 85.7 % (4.4-11.3); NEUTROPHILS % 3.7 % (38.7-80.0); RED BLOOD COUNT 3.25 x10e6/uL (3.6-5.1); RED CELL DISTRIBUTION WIDTH 15.9 % (11.7-14.4)
[2022-03-07 06:51] LABS: PLATELET COUNT 22 x10e3/uL (140-360)
[2022-03-07] MEDS: MULTIVITAMINS/MINERALS TAB PO SCH (08:53)
[2022-03-07] MEDS: LIOTHYRONINE SODIUM 5 MCG TAB PO SCH (08:53)
[2022-03-07] MEDS: LACTOBACILLUS ACIDOPHILUS CAPSULE PO SCH (08:53)
[2022-03-07] MEDS: PANTOPRAZOLE SOD 40 MG TABEC PO SCH ×2 (08:53→17:15)
[2022-03-07] MEDS: CITALOPRAM HYDROBROMIDE 20 MG TAB PO SCH (08:53)
[2022-03-07] MEDS: PREGABALIN 75 MG CAP PO SCH ×2 (08:59→17:15)
[2022-03-07 09:00] VITALS: BP 132/68
[2022-03-07 11:21] LABS: BLAST CELLS % MANUAL 46; LYMPHOCYTES % (MANUAL) 8 % (19-48); MONOCYTES % (MANUAL) 37 % (3.4-9.0); NEUTROPHILS % (MANUAL) 8 % (40-74); PLATELET ESTIMATE MARKEDLY DECREASED; PLATELET MORPHOLOGY COMMENT NORMAL; RBC MORPHOLOGY COMMENT NORMAL
[2022-03-07 12:31] VITALS: BP 115/61
[2022-03-07] MEDS ORDERED: SODIUM CHLORIDE 0.9% 250ML 250 ML ONE (15:09)
[2022-03-07] MEDS: ALBUTEROL/IPRATROPIUM 3 ML NEB NEB PRN ×2 (15:35→19:05)
[2022-03-07 17:23] VITALS: BP 112/48
[2022-03-07 20:00] VITALS: BP_SYST 134; BP_SYST 97; BP_DIAS 44; BP_DIAS 63
[2022-03-07] MEDS: TRAZODONE HCL 50 MG TAB PO SCH (20:31)
[2022-03-07] MEDS: SIMVASTATIN 80 MG TAB PO SCH (20:31)
[2022-03-08] VITALS: BP 101/62
[2022-03-08 04:00] VITALS: BP 105/91
[2022-03-08] MEDS: HYDROCODONE/APAP 10MG-325MG TAB PO PRN (04:56)
[2022-03-08 05:04] LABS: BASOPHILS # (AUTO) 0.3 (0.0-0.1); BASOPHILS % 0.3 % (0.0-1.0); EOSINOPHILS # (AUTO) 0.3 (0.0-0.4); EOSINOPHILS % 0.3 % (0.0-6.0); HEMATOCRIT 26.9 % (34.2-44.1); HEMOGLOBIN 8.6 g/dL (12.0-16.0); LYMPHOCYTES # (AUTO) 5.5 (1.0-3.2); MEAN CORPUSCULAR HEMOGLOBIN 28.4 pg (28-32); MEAN CORPUSCULAR VOLUME 88.8 fL (81-99); MONOCYTES # (AUTO) 72.4 (0.2-0.8); MONOCYTES % 80.1 % (4.4-11.3); NEUTROPHILS # (AUTO) 8.3 (2.1-6.9); NEUTROPHILS % 9.3 % (38.7-80.0); RED BLOOD COUNT 3.03 x10e6/uL (3.6-5.1); RED CELL DISTRIBUTION WIDTH 15.9 % (11.7-14.4)
[2022-03-08 05:23] LABS: ALBUMIN 2.1 g/dL (3.5-5.0); ALBUMIN/GLOBULIN RATIO 0.8 (0.8-2.0); ANION GAP 14.9 mmol/L (8-16); CALCIUM 7.8 mg/dL (8.4-10.2); CREATININE, SERUM 1.38 mg/dL (0.57-1.11); POTASSIUM 3.9 mmol/L (3.5-5.1)
[2022-03-08 05:24] LABS: PLATELET COUNT 10 x10e3/uL (140-360)
[2022-03-08] MEDS: ALBUTEROL/IPRATROPIUM 3 ML NEB NEB PRN ×2 (06:50→19:20)
[2022-03-08] MEDS ORDERED: MAGNESIUM SULFATE 2GM/50ML 50 ML IV ONE ×3 (07:00→19:15)
[2022-03-08] MEDS ORDERED: CEFTRIAXONE 1 GM VIAL ONE (07:59)
[2022-03-08] MEDS: CITALOPRAM HYDROBROMIDE 20 MG TAB PO SCH (09:05)
[2022-03-08] MEDS: MULTIVITAMINS/MINERALS TAB PO SCH (09:05)
[2022-03-08] MEDS: PREGABALIN 75 MG CAP PO SCH ×2 (09:05→17:43)
[2022-03-08] MEDS: LIOTHYRONINE SODIUM 5 MCG TAB PO SCH (09:05)
[2022-03-08] MEDS: PANTOPRAZOLE SOD 40 MG TABEC PO SCH ×2 (09:06→17:42)
[2022-03-08] MEDS: LACTOBACILLUS ACIDOPHILUS CAPSULE PO SCH (09:06)
[2022-03-08 09:12] VITALS: BP 106/54
[2022-03-08 13:06] LABS: BLAST CELLS % MANUAL 34; LYMPHOCYTES % (MANUAL) 4 % (19-48); MONOCYTES % (MANUAL) 58 % (3.4-9.0); NEUTROPHILS % (MANUAL) 4 % (40-74)
[2022-03-08 13:07] LABS: PLATELET ESTIMATE MARKEDLY DECREASED; PLATELET MORPHOLOGY COMMENT NORMAL; SMUDGE CELLS FEW
[2022-03-08 14:38] VITALS: BP 95/55
[2022-03-08] MEDS ORDERED: SODIUM CHLORIDE 0.9% 250ML 250 ML ONE (15:53)
[2022-03-08 17:36] VITALS: BP 96/43
[2022-03-08 20:00] VITALS: BP 97/38
[2022-03-08] MEDS: TRAZODONE HCL 50 MG TAB PO SCH (22:09)
[2022-03-08] MEDS: SIMVASTATIN 80 MG TAB PO SCH (22:09)
[2022-03-09] VITALS (8 sets, daily range): BP systolic 77–99; BP diastolic 37–62
[2022-03-09] MEDS: ALBUTEROL/IPRATROPIUM 3 ML NEB NEB PRN (03:20)
[2022-03-09] MEDS ORDERED: Morphine 2mg Syringe 2 MG/ML SYR IV PRN (03:45)
[2022-03-09] MEDS: LORAZEPAM INJ 2 MG/ML VIAL IV PRN ×4 (03:57→23:40)
[2022-03-09] MEDS: PANTOPRAZOLE SOD 40 MG TABEC PO SCH ×2 (07:30→16:09)
[2022-03-09] MEDS: PREGABALIN 75 MG CAP PO SCH ×2 (09:00→16:09)
[2022-03-09] MEDS: CITALOPRAM HYDROBROMIDE 20 MG TAB PO SCH (09:00)
[2022-03-09] MEDS: MULTIVITAMINS/MINERALS TAB PO SCH (09:00)
== END 2022-03-10 04:21 | disposition expired | DRG 834 ==
LOC: ER 15:23 → INTOOBSV 17:53 → ERHOLD 17:53 → MED/SURG2 19:33 → OBSVTOIN 03-06 14:48
PROVIDERS: ADMIT Internal Medicine; ATTEND Internal Medicine
PROC: 30233R1 Transfusion of Nonautologous Platelets into Peripheral Vein, Percutaneous Approach (ICD-10-PCS; principal; 2022-03-04)
PROC: 30233N1 Transfusion of Nonautologous Red Blood Cells into Peripheral Vein, Percutaneous Approach (ICD-10-PCS; 2022-03-05)
DX: C92.00 Acute myeloblastic leukemia, not having achieved remission (principal); J18.9 Pneumonia, unspecified organism; J96.01 Acute respiratory failure with hypoxia; J44.0 Chronic obstructive pulmonary disease with (acute) lower respiratory infection; D69.59 Other secondary thrombocytopenia; F41.9 Anxiety disorder, unspecified; E78.5 Hyperlipidemia, unspecified; E03.9 Hypothyroidism, unspecified; Z66 Do not resuscitate; S40.022A Contusion of left upper arm, initial encounter; S40.021A Contusion of right upper arm, initial encounter; S20.219A Contusion of unspecified front wall of thorax, initial encounter; Z90.49 Acquired absence of other specified parts of digestive tract; Z96.652 Presence of left artificial knee joint; Z90.710 Acquired absence of both cervix and uterus; Z87.891 Personal history of nicotine dependence; Z82.49 Family history of ischemic heart disease and other diseases of the circulatory system
CPT/HCPCS: 0223U; 36415; 71045; 80053; 81001; 82550; 82553; 82948; 83735; 84484; 85025; 85610; 85730; 86850; 86900; 86920; 93005; 94640; 94799; 99251; 99284; G0378; J0696; J1940; J2060; J2270; J3475; J7050; P9016; P9034